=== PATIENT | female | born 1945 | race Caucasian/White ===

== ENCOUNTER 2016-12-27 09:11 | Outpatient (CLI) | payer MEDICARE, OTHER | END 2016-12-27 09:12 | disposition home or self-care (01) | DX: Z79.899 Other long term (current) drug therapy (principal); E55.9 Vitamin D deficiency, unspecified ==

== ENCOUNTER 2017-05-09 12:49 | Outpatient (CLI) | payer MEDICARE, OTHER ==
[2017-05-09 18:07] LABS: ALBUMIN/GLOBULIN RATIO 1.6 (1.0-2.2); CALCIUM 9.7 mg/dL (8.5-10.3); POTASSIUM 3.8 mmol/L (3.5-5.0); TOTAL PROTEIN 6.8 g/dL (6.7-8.2)
== END 2017-05-09 12:50 | disposition home or self-care (01) ==
LOC: LAB.F 12:49
PROVIDERS: ATTEND Physician Assistant Medical
DX: N28.9 Disorder of kidney and ureter, unspecified (principal)
CPT/HCPCS: 36415; 80053

== ENCOUNTER 2017-10-03 08:00 | Outpatient (CLI) | payer MEDICARE, OTHER ==
[2017-10-04 11:47] LABS: BASOPHILS # (AUTO) 0.2 10^3/uL (0.0-0.1); BASOPHILS % (AUTO) 2.1 %; EOSINOPHILS # (AUTO) 0.3 10^3/uL (0.0-0.7); EOSINOPHILS % (AUTO) 3.3 %; HGB - HEMOGLOBIN 12.8 g/dL (12.0-16.0); LYMPHOCYTES # (AUTO) 1.6 10^3/uL (1.5-3.5); LYMPHOCYTES % (AUTO) 19.4 %; MEAN CORPUSCULAR HEMOGLOBIN 32.8 pg (27.0-31.0); MEAN CORPUSCULAR HGB CONC 31.9 g/dL (32.0-36.0); MEAN CORPUSCULAR VOLUME 102.7 fL (81.0-99.0); MEAN PLATELET VOLUME 10.6 fL (7.9-10.8); MONOCYTES # (AUTO) 0.6 10^3/uL (0.0-1.0); MONOCYTES % (AUTO) 7.1 %; NEUTROPHILS # (AUTO) 5.5 10^3/uL (1.5-6.6); NEUTROPHILS % (AUTO) 68.1 %; PLT - PLATELET COUNT 243 10^3/uL (130-450); RED BLOOD COUNT 3.92 10^6/uL (4.20-5.40); RED CELL DISTRIBUTION WIDTH 14.2 % (12.0-15.0); WHITE BLOOD COUNT 8.1 x10^3/uL (4.8-10.8)
[2017-10-04 12:02] LABS: ALBUMIN 4.2 g/dL (3.2-5.5); ALBUMIN/GLOBULIN RATIO 1.6 (1.0-2.2); ALKALINE PHOSPHATASE 56 IU/L (42-121); ALT ALANINE AMINOTRANSFERASE 23 IU/L (10-60); AST ASPARTATE AMINOTRANSFERASE 26 IU/L (10-42); BILIRUBIN,TOTAL 0.7 mg/dL (0.2-1.0); BUN - BLOOD UREA NITROGEN 19 mg/dL (6-20); CALCIUM 9.3 mg/dL (8.5-10.3); CARBON DIOXIDE - CO2 27 mmol/L (21-32); CHLORIDE 104 mmol/L (101-111); CHOLESTEROL 180 mg/dL; CREATININE 0.9 mg/dL (0.4-1.0); GFR - MDRD 62 (>89); GLUCOSE 88 mg/dL (70-100); HDL CHOLESTEROL 60 mg/dL; LDL CHOLESTEROL,CALCULATED 81 mg/dL; LDL/HDL RATIO 1.4 (<4.4); SODIUM 139 mmol/L (135-145); TOTAL PROTEIN 6.8 g/dL (6.7-8.2); VLDL CHOLESTEROL 39 mg/dL
== END 2017-10-03 08:01 | disposition home or self-care (01) ==
LOC: LAB.F 08:00
PROVIDERS: ATTEND Physician Assistant Medical
DX: E78.5 Hyperlipidemia, unspecified (principal); G45.9 Transient cerebral ischemic attack, unspecified
CPT/HCPCS: 36415; 80053; 80061; 84443; 85025

== ENCOUNTER 2017-10-09 11:18 | Outpatient (CLI) | payer MEDICARE, OTHER | END 2017-10-09 11:19 | disposition home or self-care (01) | LOC: DI 11:18 | PROVIDERS: ATTEND Physician Assistant Medical | DX: I47.9 Paroxysmal tachycardia, unspecified (principal) | CPT/HCPCS: 93306 ==

== ENCOUNTER 2017-10-14 13:53 | Outpatient (CLI) | payer MEDICARE, OTHER ==
[2017-10-14] MEDS ORDERED: GADOBUTROL 7.5 MMOL/7.5 ML VIAL ONE (14:32)
[2017-10-14] MEDS ORDERED: GADOBUTROL 7.5 MMOL/7.5 ML VIAL IVP ONE (15:07)
--- NOTE | 2017-10-16 03:30 | MRI Report ---
EXAM: MR ANGIOGRAM NECK EXAM DATE: 10/14/2017 03:17 PM. CLINICAL HISTORY: TIA, dizziness, visual auras, difficulty with comprehension. COMPARISON: Head CT/CTA 10/05/2017. TECHNIQUE: Multiplanar, multisequence MRA sequences of the neck were performed. Other: None. Post-pro cessing: Multiplanar 3D MIP reconstructions. IV Contrast: Without and with. Evaluation of arterial s tenosis is based on a NASCET method of measurement. FINDINGS: There is mild tortuosity of the carotid arteries. There is moderate tortuosity of the dista l left vertebral artery. RIGHT Common Carotid: Patent. No dissection or significant stenosis. Internal Carotid: Patent. No dissection or significant stenosis. External Carotid: Patent. No dissection or significant stenosis. Vertebral: Patent. No dissection or significant stenosis. LEFT Common Carotid: Patent. No dissection or significant stenosis. Internal Carotid: Patent. No dissection or significant stenosis. External Carotid: Patent. No dissection or significant stenosis. Vertebral: Patent. No dissection or significant stenosis. Intracranial Circulation: No stenoses or aneurysms in the visualized portion of the intracranial vasc ulature. Other: The soft tissues, bones, and lung apices are unremarkable. IMPRESSION: No evidence of carotid or vertebral artery stenosis. [facility] Referring Provider Line: [phone] SITE ID: [id number]
--- NOTE | 2017-10-16 06:55 | MRI Report ---
EXAM MRA BRAIN EXAM DATE: 10/14/2017 03:17 PM. CLINICAL HISTORY: Dizziness, visual auras, confusion COMPARISON: Head and neck CTA 10/05/2017. TECHNIQUE: Multiplanar, multisequence MRA sequences of the brain were performed. Other: None. Post-pr ocessing: Multiplanar 3D MIP reconstructions. IV Contrast: None. FINDINGS: RIGHT Internal Carotid (ICA): No aneurysm, stenosis or anomaly. Middle Cerebral (MCA): No aneurysm, stenosis or anomaly. Anterior Cerebral (MARLENY): No aneurysm, stenosis or anomaly. Posterior Cerebral (ENTERPRISE MOBILITY ARCHITECT): No aneurysm, stenosis or anomaly. Posterior Communicating (P-COM): No aneurysm, stenosis or anomaly. Vertebral: No aneurysm, stenosis or anomaly in the visualized upper vertebral artery. LEFT Internal Carotid (ICA): No aneurysm, stenosis or anomaly. Middle Cerebral (MCA): No aneurysm, stenosis or anomaly. Anterior Cerebral (MARLENY): No aneurysm, stenosis or anomaly. Posterior Cerebral (ENTERPRISE MOBILITY ARCHITECT): No aneurysm, stenosis or anomaly. Posterior Communicating (P-COM): No aneurysm, stenosis or anomaly. Vertebral: No aneurysm, stenosis or anomaly in the visualized upper vertebral artery. MIDLINE Anterior Communicating (A-COM): No aneurysm, stenosis or anomaly. Basilar Artery:No aneurysm, stenosis or anomaly. Other: None. IMPRESSION: 1. Normal brain MRA. No stenoses or aneurysms. [facility] Referring Provider Line: [phone] SITE ID: [id number]
== END 2017-10-14 13:54 | disposition home or self-care (01) ==
LOC: DI 13:53
PROVIDERS: ATTEND Physician Assistant Medical
DX: G45.9 Transient cerebral ischemic attack, unspecified (principal)
CPT/HCPCS: 70544; 70549; A9585

== ENCOUNTER 2019-01-02 07:57 | Outpatient (CLI) | payer MEDICARE, OTHER ==
[2019-01-02 10:36] LABS: BASOPHILS # (AUTO) 0.1 10^3/uL (0.0-0.1); BASOPHILS % (AUTO) 1.2 %; EOSINOPHILS # (AUTO) 0.1 10^3/uL (0.0-0.7); EOSINOPHILS % (AUTO) 2.4 %; HGB - HEMOGLOBIN 13.7 g/dL (12.0-16.0); LYMPHOCYTES # (AUTO) 1.1 10^3/uL (1.5-3.5); LYMPHOCYTES % (AUTO) 19.7 %; MEAN CORPUSCULAR HEMOGLOBIN 32.7 pg (27.0-31.0); MEAN CORPUSCULAR HGB CONC 33.1 g/dL (32.0-36.0); MEAN CORPUSCULAR VOLUME 98.9 fL (81.0-99.0); MEAN PLATELET VOLUME 9.7 fL (7.9-10.8); MONOCYTES # (AUTO) 0.5 10^3/uL (0.0-1.0); MONOCYTES % (AUTO) 8.3 %; NEUTROPHILS # (AUTO) 3.8 10^3/uL (1.5-6.6); NEUTROPHILS % (AUTO) 68.4 %; PLT - PLATELET COUNT 289 10^3/uL (130-450); RED BLOOD COUNT 4.17 10^6/uL (4.20-5.40); RED CELL DISTRIBUTION WIDTH 12.8 % (12.0-15.0); WHITE BLOOD COUNT 5.6 x10^3/uL (4.8-10.8)
[2019-01-02 10:52] LABS: ALBUMIN 4.1 g/dL (3.2-5.5); ALBUMIN/GLOBULIN RATIO 1.5 (1.0-2.2); ALKALINE PHOSPHATASE 51 IU/L (42-121); ALT ALANINE AMINOTRANSFERASE 44 IU/L (10-60); AST ASPARTATE AMINOTRANSFERASE 36 IU/L (10-42); BILIRUBIN,TOTAL 1.3 mg/dL (0.2-1.0); BUN - BLOOD UREA NITROGEN 18 mg/dL (6-20); CALCIUM 9.5 mg/dL (8.5-10.3); CARBON DIOXIDE - CO2 30 mmol/L (21-32); CHLORIDE 101 mmol/L (101-111); CHOL/HDL RATIO 3.3 (<4.4); CHOLESTEROL 185 mg/dL; CREATININE 0.9 mg/dL (0.4-1.0); GFR - MDRD 62 (>89); GLUCOSE 96 mg/dL (70-100); HDL CHOLESTEROL 56 mg/dL; LDL CHOLESTEROL,CALCULATED 98 mg/dL; LDL/HDL RATIO 1.8 (<4.4); SODIUM 137 mmol/L (135-145); TOTAL PROTEIN 6.8 g/dL (6.7-8.2); VLDL CHOLESTEROL 31 mg/dL
== END 2019-01-02 07:58 | disposition home or self-care (01) ==
LOC: LAB.F 07:57
PROVIDERS: ATTEND Physician Assistant Medical
DX: E78.5 Hyperlipidemia, unspecified (principal)
CPT/HCPCS: 36415; 80053; 80061; 83721; 85025

== ENCOUNTER 2019-02-12 16:23 | Outpatient (CLI) | payer MEDICARE, OTHER ==
--- NOTE | 2019-02-13 09:11 | DEXA Report ---
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 Regions measured are the AP Spine, femoral neck, and if needed forearm. COMPARISON: 08/22/2016 In accordance with the International Society for Clinical Densitometry (ISCD) guidelines, data from previous exams may be reanalyzed using current recommendations and techniques. This is done to allow a more accurate basis for comparison with the current study. FINDINGS: The data for the lumbar spine is as follows: BMD (g/cm/cm) T-SCORE Z-SCORE REGION L1 0.928 -1.7 0.5 L2 1.093 -0.9 1.2 L3 1.127 -0.6 1.5 L4 1.056 -1.2 0.9 TOTAL 1.051 -1.1 1.1 NOTE: All evaluable vertebrae are used for classification The data for the hip is as follows: BMD (g/cm/cm) T-SCORE Z-SCORE REGION Neck 0.699 -2.4 -0.4 TOTAL 0.745 -2.1 -0.2 NOTE: The femoral neck or total proximal femur, whichever is lowest, is used for classification. DXA RESULTS SUMMARY: Spine SCAN DATE AGE BMD CHANGE VS CHANGE VS PREVIOUS PREVIOUS % [birth year][age]12/2019 [age] 1.051 -0.012 -1.1 08/22/2016 [age] 1.063 * Denotes significant change at the 95% confidence level. Denotes dissimilar scan types or analysis methods. DXA RESULTS SUMMARY: Hip SCAN DATE AGE BMD CHANGE VS CHANGE VS PREVIOUS PREVIOUS % 02[birth year]12/2019 [age] 0.745 -0.002 -0.3 08/22/2016 [age] 0.747 * Denotes significant change at the 95% confidence level. Denotes dissimilar scan types or analysis methods. IMPRESSION: THE WHO CLASSIFICATION BASED ON THE INTERNATIONAL REFERENCE STANDARD IS OSTEOPENIA (REFERENCE LEFT FEMORAL NECK). THE FRACTURE RISK IS INCREASED. RECOMMENDATION: Patients with diagnosis of osteoporosis or osteopenia should have regular bone mineral density assessment. For those eligible for Medicare, routine testing is allowed once every 2 years. Testing frequency can be increased for patients who have rapidly progressing disease or for those who are receiving medical therapy to restore bone mass. COMMENT: World Health Organization (WHO) definitions for osteoporosis and osteopenia: NORMAL BMD: T-score at -1.0 or higher, fracture risk is low OSTEOPENIA BMD: T-score between -1.0 and -2.5, fracture risk is increased. OSTEOPOROSIS BMD: T-score at -2.5 or lower, fracture risk is high. National Osteoporosis Foundation recommends: 1. Obtain adequate dietary calcium (at least 1200 mg per day) and vitamin D (400-800 international units per day). 2. Participate, as appropriate, in regular weightbearing and muscle-strengthening exercise. 3. Avoid tobacco use and reduce alcohol and caffeine intake. 4. For more detailed information see the website at www.NOF.org.
== END 2019-02-12 16:24 | disposition home or self-care (01) ==
LOC: DI 16:23
PROVIDERS: ATTEND Physician Assistant Medical
DX: Z13.820 Encounter for screening for osteoporosis (principal); M85.89 Other specified disorders of bone density and structure, multiple sites; Z78.0 Asymptomatic menopausal state
CPT/HCPCS: 77080

== ENCOUNTER 2019-02-12 16:26 | Outpatient (CLI) | payer MEDICARE, OTHER ==
--- NOTE | 2019-02-13 10:59 | Mammography Report ---
Reason: SCREENING MAMMOGRAM [facility] Procedure Date: 02/12/2019 Accession Number: [id number] / [id number] Procedure: GEM - Screening Mammo w/Gael CPT Code: FULL RESULT: EXAM: Screening Mammo w/Gael DATE: 02/12/2019 5:06 PM CLINICAL HISTORY: Routine screening TECHNIQUE: (B) - Bilateral CC and MLO views were obtained. COMPARISON: 07/22/2016, 01/14/2015, 12/05/2013, and 12/13/2012 PARENCHYMAL PATTERN: (D) - The breasts demonstrate heterogeneously dense fibroglandular parenchyma bilaterally. FINDINGS: No significant interval change. There are no suspicious masses, calcifications, or areas of distortion. IMPRESSION: Negative examination. BI-RADS category 1. RECOMMENDATION: (ANNUAL) - Recommend routine annual screening mammography. BI-RADS CATEGORY: (1) - Negative. STANDARD QUALIFYING STATEMENTS: 1. This examination was not reviewed with the aid of Computer-Aided Detection (CAD). 2. A negative or benign imaging report should not preclude biopsy if clinically suspicious findings are present. 3. Dense breasts may obscure an underlying neoplasm. 4. This examination was reviewed with the aid of 3D breast imaging (tomosynthesis).
== END 2019-02-12 16:27 | disposition home or self-care (01) ==
LOC: DI 16:26
PROVIDERS: ATTEND Physician Assistant Medical
DX: Z12.31 Encounter for screening mammogram for malignant neoplasm of breast (principal)
CPT/HCPCS: 77063; 77067

== ENCOUNTER 2020-03-11 13:16 | Outpatient (CLI) | payer MEDICARE | END 2020-03-11 13:17 | disposition critical access hospital (66) | LOC: EMS 13:16 | PROVIDERS: ATTEND Surgery | DX: R07.9 Chest pain, unspecified (principal) | CPT/HCPCS: A0425; A0429 ==

== ENCOUNTER 2020-03-11 13:42 | Observation (INO) | payer MEDICARE, OTHER ==
--- NOTE | 2020-03-11 13:49 | ED Physician Documentation ---
PD HPI CHEST PAIN - Stated complaint Stated Complaint: CP - History obtained from History obtained from: Patient - History of Present Illness Timing - onset: Enter time, How many minutes ago (60) Timing - onset during: Light activity Timing - duration: Minutes Timing - details: Gradual onset Pain level max: 8 Pain level now: 0 Quality: Pressure, Tightness Location: Left chest, Left neck Radiation: Back Improved by: Nitro Associated symptoms: No: Shortness of air, Diaphoresis, Nausea, Vomiting - Additional information Additional information: 75-year-old female presents to the emergency department with chief complaint of chest pain. Approximately 60 minutes ago patient was out with her shopping. She began to develop low back pain that then radiated up into her chest left arm and jaw. At maximal intensity the pain was rated an 8. Her gave her 1 of his nitroglycerin tablets SL. Shortly thereafter she had almost full resolution of the chest pain.EMS was summoned and she was brought into the emergency department in route patient maintained a sinus rhythm and was given 324 mg of aspirin. Patient denies any history of coronary artery disease or previous AR. She denies a history of high blood pressure or diabetes. She is a non-smoker. The only medication she takes is Restasis for dry eyes. Her brother at 50 due to myocardial infarction. Review of Systems Constitutional: denies: Fever, Chills Nose: denies: Rhinorrhea / runny nose Throat: denies: Dental pain / toothache Cardiac: reports: Chest pain / pressure. denies: Palpitations, Pedal edema, Calf pain Respiratory: denies: Dyspnea, Cough, Hemoptysis, Wheezing GI: denies: Abdominal Pain, Abdominal Swelling : denies: Dysuria Skin: denies: Rash Musculoskeletal: denies: Neck pain, Back pain, Extremity pain Neurologic: denies: Generalized weakness Psychiatric: denies: Depressed PD PAST MEDICAL HISTORY - Past Medical History Cardiovascular: None Respiratory: None Endocrine/Autoimmune: None GI: None : None HEENT: None Psych: None Musculoskeletal: Osteoarthritis, Osteoporosis, Other Derm: Other - Past Surgical History General: Colonoscopy - Present Medications Home Medications: Ambulatory Orders Medication Instructions Recorded Confirmed Calcium Carb/Mag/Vitamin D3 [Coral 1,200 12/27/13 12/27/13 Calcium 1,500 mg Cap] Gluc/MSM/Colgn2/Hyal/Antiarth3 12/27/13 12/27/13 [Arthri-Flex Tablet] Multivitamin [Multi-Day Vitamins] 1 each PO 12/27/13 12/27/13 [place]-3/Dha/Epa/Fish Oil [Fish Oil 1 each PO 12/27/13 12/27/13 1,000 mg Softgel] Piroxicam 20 mg PO 12/27/13 12/27/13 - Allergies Allergies/Adverse Reactions: Allergies Allergy/AdvReac Type Severity Reaction Status Date / Time No Known Drug Allergies Allergy Verified 03/11/20 13:45 PD ED PE NORMAL - General General: Alert and oriented X 3, No acute distress, Well developed/nourished - HEENT HEENT: PERRL, EOMI - Neck Neck: No adenopathy - Cardiac Cardiac: RRR, No murmur - Respiratory Respiratory: No respiratory distress, Clear bilaterally - Abdomen Abdomen: Normal bowel sounds, Non tender - Female Female : No: Deferred - Back Back: No: No CVA TTP, No spinal TTP - Derm Derm: No: Normal color, Warm and dry, No rash - Extremities Extremities: No: No deformity - Neuro Neuro: Alert and oriented X 3, sustainability coordinator 2-12 intact, No motor deficit, No sensory deficit Eye Opening: To Pain Motor: Obeys Commands Verbal: Oriented GCS Score: 13 - Psych Psych: Normal mood Results - Vitals Vitals: Vital Signs - 24 hr 03/11/20 03/11/20 03/11/20 13:48 13:52 15:47 Temperature 37.1 C Heart Rate 57 L 60 65 Respiratory 16 16 22 Rate Blood Pressure 136/88 H 118/82 H 118/82 H O2 Saturation 100 99 100 Oxygen O2 Source Room air - EKG (time done) 1348 Rate: Rate (enter#) (59) Rhythm: NSR [place]: Normal Intervals: Normal NM QRS: Normal Ischemia: Normal ST segments Compare to prior EKG: Old EKG unavailable Computer interpretation: Agree with computer - Labs Labs: Laboratory Tests 03/11/20 03/11/20 03/11/20 14:02 14:02 14:24 WBC 9.3 RBC 3.76 L Hgb 12.4 Hct 36.2 L MCV 96.3 MCH 33.0 H MCHC 34.3 RDW 12.1 Plt Count 280 MPV 10.7 Neut # (Auto) 6.7 H Lymph # (Auto) 1.6 [place] # (Auto) 0.7 Eos # (Auto) 0.2 Baso # (Auto) 0.1 Absolute Nucleated RBC 0.00 Nucleated RBC % 0.0 Sodium 138 Potassium 4.3 Chloride 101 Carbon Dioxide 28 Anion Gap 9.0 BUN 29 H Creatinine 1.0 Estimated GFR (MDRD) 54 L Glucose 106 H Calcium 9.3 Total Bilirubin 1.1 H AST 28 ALT 20 Alkaline Phosphatase 69 Troponin I High Sens 4.5 Total Protein 6.9 Albumin 4.1 Globulin 2.8 Albumin/Globulin Ratio 1.5 Lipase 31 - Rads (name of study) CXR Radiology: Final report received (No acute cardiopulmonary process) CT Carina Chest Radiology: Final report received (No acute process no evidence of aortic dissection. Coronary artery disease is present. Right lower pulmonary nodule follow-up is recommended as below.) CT angio pelvis Radiology: Final report received (The aorta demonstrates no areas of hemodynamically significant stenosis. 66% compression deformity at L1 most consistent with acute subacute fracture. In addition a poorly visualized lucency is noted along the lateral aspect of L1 vertebral body pathologic fracture cannot be definitively excluded) PD MEDICAL DECISION MAKING - ED course Complexity details: reviewed results, re-evaluated patient, d/w patient, d/w family ED course: 75-year-old female presented to the emergency department with chief complaint of chest pain. Occurred at rest. She took 1 of her 's nitroglycerin tablets which fully relieved the chest pain. - Work-up here in the ED has included routine labs and high-sensitivity troponin which is negative. Her EKG is unrevealing and nonischemic. Chest x-ray shows no acute cardiopulmonary process. - CT angios of chest and pelvis was completed to rule out aortic dissection as pain began in the back. No findings consistent with aortic dissection. However there is a noted L1 compression fracture. Cannot rule out pathologic fracture - Patient does have limited risk factors for AR. No history of hypertension diabetes or hyperlipidemia. However at 75 this is seemingly her only risk factor. Patient will be brought into the hospital for echo and stress test Departure - Departure Disposition: ED Place in Observation
--- NOTE | 2020-03-11 14:23 | XRAY Report ---
PROCEDURE: Chest 1 View X-Ray INDICATIONS: Chest Pain TECHNIQUE: One view of the chest was acquired. COMPARISON: None FINDINGS: Surgical changes and devices: None. Lungs and pleura: No pleural effusions or pneumothorax. Lungs are clear. Mediastinum: Mediastinal contours appear normal. Heart size is normal. Bones and chest wall: No suspicious bony lesions. Overlying soft tissues appear unremarkable. IMPRESSION: No acute process. Reviewed by: Jose Rafael Nagel MD on 03/11/2020 2:22 PM PDT Approved by: Jose Rafael Nagel MD on 03/11/2020 2:22 PM PDT Station ID: [id number]
[2020-03-11 14:24] LABS: ALBUMIN 4.1 g/dL (3.2-5.5); ALBUMIN/GLOBULIN RATIO 1.5 (1.0-2.2); BILIRUBIN,TOTAL 1.1 mg/dL (0.2-1.0); CALCIUM 9.3 mg/dL (8.5-10.3); TOTAL PROTEIN 6.9 g/dL (6.7-8.2)
[2020-03-11 14:28] LABS: BASOPHILS # (AUTO) 0.1 10^3/uL (0.0-0.1); BASOPHILS % (AUTO) 0.8 %; EOSINOPHILS # (AUTO) 0.2 10^3/uL (0.0-0.7); EOSINOPHILS % (AUTO) 2.4 %; HGB - HEMOGLOBIN 12.4 g/dL (12.0-16.0); LYMPHOCYTES # (AUTO) 1.6 10^3/uL (1.5-3.5); MEAN CORPUSCULAR HGB CONC 34.3 g/dL (32.0-36.0); MEAN CORPUSCULAR VOLUME 96.3 fL (81.0-99.0); MEAN PLATELET VOLUME 10.7 fL (7.9-10.8); MONOCYTES # (AUTO) 0.7 10^3/uL (0.0-1.0); MONOCYTES % (AUTO) 7.1 %; NEUTROPHILS # (AUTO) 6.7 10^3/uL (1.5-6.6); NEUTROPHILS % (AUTO) 72.3 %; PLT - PLATELET COUNT 280 10^3/uL (130-450); RED BLOOD COUNT 3.76 10^6/uL (4.20-5.40); RED CELL DISTRIBUTION WIDTH 12.1 % (12.0-15.0); WHITE BLOOD COUNT 9.3 x10^3/uL (4.8-10.8)
[2020-03-11] MEDS ORDERED: IOVERSOL 320 100 ML VIAL IVP ONE ×2 (15:06→15:33)
--- NOTE | 2020-03-11 15:53 | CT Report ---
PROCEDURE: ANGIO CHEST W/WO INDICATIONS: lbp radiating to chest. r/o aod CONTRAST: IV CONTRAST: Optiray 320 ml: 100 PO CONTRAST: *NO PO CONTRAST TECHNIQUE: After the administration of intravenous contrast, 2 mm thick sections acquired from the pulmonary api elaine to the posterior costophrenic angles. 3-dimensional maximum intensity projection (MIP) coronal a nd sagittal reformats were then acquired through the thorax. For radiation dose reduction, the follow ing was used: automated exposure control, adjustment of mA and/or kV according to patient size. COMPARISON: None FINDINGS: Image quality: Excellent. Pulmonary arteries: Pulmonary arteries are normal in size, and demonstrate no intraluminal filling d efects to suggest central pulmonary embolism. Lungs and pleura: No evidence of pneumonia, nor edema. 6 mm subpleural nodule within the right lower lobe posteriorly (series 7 image 215). No pleural effusions or pneumothorax. Central and peripheral airways are patent. Mediastinum: Heart size is normal, without pericardial effusion. Calcification of the coronary vasc ulature. No mediastinal or hilar adenopathy. Thoracic aorta is normal in caliber and enhancement. N o evidence of aortic dissection. Esophagus is normal in caliber, without hiatal hernia. Bones and chest wall: No suspicious bony lesions. Ribs and thoracic spine appear intact throughout. Thyroid gland is within normal limits. 6 mm sclerotic focus within the right anterolateral fifth ri b. No axillary or supraclavicular adenopathy. Abdomen: Visualized upper abdominal solid organs appear normal in the early arterial phase of enhanc ement. IMPRESSION: 1. No acute process. No evidence of aortic dissection. 2. Coronary artery disease. 3. Right lower lobe pulmonary nodule; follow-up is recommended as below. Solid nodules Solitary nodule size: <6 mm * low risk patients: no follow-up needed * high risk patients: optional CT at 12 months Solitary nodule size: 6-8 mm * low risk patients: follow-up at 6-12 months, then consider further follow-up at 18-24 months * high risk patients: initial follow-up CT at 6-12 months and then at 18-24 months if no change Reviewed by: Jose Rafael Nagel MD on 03/11/2020 3:51 PM PDT Approved by: Jose Rafael Nagel MD on 03/11/2020 3:51 PM PDT Station ID: [id number]
--- NOTE | 2020-03-11 15:58 | CT Report ---
PROCEDURE: ANGIO ABDOMEN/PELVIS W INDICATIONS: LBP RADIATING TO CHEST CONTRAST: IV CONTRAST: Optiray 320 ml: 100 PO CONTRAST: *NO PO CONTRAST TECHNIQUE: After the administration of intravenous contrast, 2 and 5 mm sections acquired from the diaphragm to the iliac crests. 3-dimensional maximum intensity projection (MIP) coronal and sagittal reformats, a nd/or 3-dimensional volume rendering reformatting was then performed. For radiation dose reduction, the following was used: automated exposure control, adjustment of mA and/or kV according to patient size. COMPARISON: CT angiogram chest 03/11/2020 FINDINGS: Image quality: Excellent. Extravascular tissues: Lung bases are clear. Heart size is normal. Liver and spleen are normal in size. 5 mm right hepatic dome focus of low-attenuation is present. Gallbladder is unremarkable Bili shiv system is non dilated. Pancreas enhances normally. No adrenal nodules. Kidneys are normal in s ize and enhancement, without hydronephrosis. Non-opacified bowel loops demonstrate normal wall thick ness and caliber. No free fluid or air. No retroperitoneal or mesenteric adenopathy. No ventral he rnias. No suspicious bony abnormalities. There is a superior endplate deformity with approximately 6 6% compression deformity at L1. There is poorly defined area of lateral lucency within the vertebral body. Abdominal aorta: No areas of hemodynamically significant stenosis, vascular occlusion or aneurysmal dilation is identified. Scattered mild areas of atherosclerotic calcification are noted. There is a s hort segment within the distal aorta demonstrating a small area of calcified mural thrombus. Mesenteric arteries: No areas of hemodynamically significant stenosis, vascular occlusion or aneurys mal dilation is identified. Renal arteries: No areas of hemodynamically significant stenosis, vascular occlusion or aneurysmal d ilation is identified. IMPRESSION: 1. The aorta demonstrates no areas of hemodynamically significant stenosis, vascular occlusion or ane urysmal dilation. 2. Prominent stool consistent with constipation. No obstruction. 3. 66% compression deformity at L1 most consistent with acute/subacute fracture. In addition, a poorl y visualized lucency is noted along the lateral aspect of the L1 vertebral body. Pathologic fracture cannot be definitively excluded. MRI with and without contrast is recommended for further evaluation. Reviewed by: Desire Arzate MD on 03/11/2020 3:57 PM PDT Approved by: Desire Arzate MD on 03/11/2020 3:57 PM PDT Station ID: [id number]
[2020-03-11] MEDS ORDERED: SODIUM CHLORIDE FLUSH 0.9% 10 ML SYRINGE IVP PRN (16:58)
[2020-03-11] MEDS ORDERED: ACETAMINOPHEN 325 MG TABLET PO PRN (16:58)
[2020-03-11] MEDS ORDERED: ONDANSETRON 4 MG/2 ML VIAL IVP PRN (16:58)
[2020-03-11] MEDS ORDERED: NITROGLYCERIN SL 0.4 MG TABLET SL PRN (17:07)
--- NOTE | 2020-03-11 18:00 | HISTORY & PHYSICAL EXAMINATION ---
DATE OF SERVICE: 03/11/2020 Physician: Velia Brown MD HISTORY OF PRESENT ILLNESS: This is a 75-year-old white female with a family history of coronary artery disease with a brother dying in his 50s of AL. She otherwise also has osteoarthritis, osteoporosis and takes supplements. She was sitting in the car while she and her were out shopping and she began to develop left-mid low back pain that started to radiate forward "striaght through" her to the left-anterior chest and then felt pain in the and jaw. gave her one of his sublingual nitroglycerin, which gave her partial relief of the pain. They called an ambulance. The ambulance gave her a sl NTG as well, and 2 baby aspirin and pain subsided, it lasted about 390 min. She was brought to the emergency room. Old records here showed that she had an Echo done years ago to evaluate "history of coronary artery disease and TIA" and this showed normal LV ejection fraction. She describes other tests at other institutions to evaluate for any heart disease and they were negative. Patient denies an established history of CAD or previous AL. She has never had symptoms like this before. She denies dyspnea, palpitations, syncope, leg edema. She gets "leg fatigue" with walking up stairs, but no pain. 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 PAST MEDICAL HISTORY 1. Osteoarthritis. 2. Osteoporosis. MEDICATIONS 1. Calcium with magnesium. 2. Vitamin D3 supplement 3. Glucosamine chondroitin. 4. Fish oil. 5. Multivitamin. 6. Meloxicam. ALLERGIES: NO KNOWN ALLERGIES. FAMILY HISTORY: Positive family history for early heart disease in her brother who in his 50s. No other inherited diseases. SOCIAL HISTORY: She is a nonsmoker, who quit smoking 30 years ago. No alcohol abuse history or drug abuse history. She lives with her . She retired about 20 years ago. REVIEW OF SYSTEMS: A comprehensive review of systems was performed and the pertinent positives are listed, the rest are negative. PHYSICAL EXAMINATION GENERAL: White female who appears younger than her age and is currently in no distress. VITAL SIGNS: Blood pressure 120/82, heart rate 60-65 in sinus rhythm. Oxygen saturation is 98% on room air. HEENT: Unremarkable. NECK: No JVD or carotid bruits. CHEST: Clear. HEART: Normal heart sounds. No murmur. ABDOMEN: Soft, nontender. Normal bowel sounds. EXTREMITIES: No clubbing, cyanosis or edema. NEUROLOGIC: Grossly intact. LABORATORY DATA: Normal electrolytes, BUN 29, creatinine 1.0, bilirubin 1.1. Normal liver tests. First troponin high sensitivity is 4.5. CBC shows normal white count and platelet count and hemoglobin of 12.4 with a normal MCV of 96. No INR was done. No urinalysis was done. EKG: Normal sinus rhythm, early R/S transition. There is no old EKG available for comparison. CHEST X-RAY: No acute pulmonary disease. CTA of the chest, abdomen and pelvis were done to rule out aortic dissection because of the location of pain and where it started. The imaging showed no evidence of aortic dissection. She has coronary artery disease with atherosclerosis seen. There is a nodule within the right lower lobe posteriorly. In the abdomen, there were findings of atherosclerosis of the descending aorta with a calcified clot that is mural. She has constipation and there is a compression deformity of L1 vertebrae, which could be acute or subacute and possibly a poorly visualized lucency along the lateral aspect of the L1 vertebral body. A pathologic fracture cannot be ruled out. IMPRESSION 1. Chest pain. 2. Abnormal EKG. 3. Low back pain. 4. L1 compression fracture. 5. Abnormal CT of the heart, showing coronary artery disease/atherosclerosis. 6. Pulmonary nodule in the right. 7. Prerenal azotemia. PLAN: Place patient in Observation status on telemetry. Cycle troponins. Obtain an Echo. Obtain a stress test if the troponins are normal. We will plan for a nonwalking stress test because of her low back pain and findings of the L1 compression fracture. She will need workup for the compression fracture and a possibility of pathologic fracture and lucency seen. Check lipids and treat per guidelines. Continue with her supplements. DEEP VENOUS THROMBOSIS PROPHYLAXIS: SCDS. CODE STATUS: FULL CODE. ATTESTATION: Patient is expected to be discharged or transferred to another facility within 96 hours: Yes. cc: PRISCILA Kaiser TD: 03/11/2020 17:46 PHONG
--- NOTE | 2020-03-11 18:39 | PHARMACY PROGRESS NOTE ---
- Best Possible Medication History Admit Date and Time: 03/11/20 1633 Processed by: Pharmacy Medication History completed: Yes Patient Interview: Completed Secondary Source(s): Pharmacy records, Insurance records As the person ultimately responsible for medication therapy, providers are able to order a medication from an existing home medication list in [facility] via the "Reconcile Routine" prior to Confirmation of that medication by direct support worker. Such practice is discouraged except when the physician, in their clinical judgment, deems that a medical need exists for a medication without regard to previous use.
[2020-03-11] MEDS: FAMOTIDINE 20 MG TABLET PO SCH (21:00)
[2020-03-12] MEDS: SODIUM CHLORIDE FLUSH 0.9% 10 ML SYRINGE IVP SCH ×2 (00:23→09:28)
[2020-03-12 06:10] LABS: BUN - BLOOD UREA NITROGEN 22 mg/dL (6-20); CARBON DIOXIDE - CO2 26 mmol/L (21-32); CHLORIDE 105 mmol/L (101-111); CHOL/HDL RATIO 3.3 (<4.4); CHOLESTEROL 164 mg/dL; GLUCOSE 103 mg/dL (70-100); HDL CHOLESTEROL 50 mg/dL; LDL CHOLESTEROL,CALCULATED 86 mg/dL; LDL/HDL RATIO 1.7 (<4.4); SODIUM 139 mmol/L (135-145); VLDL CHOLESTEROL 28 mg/dL
--- NOTE | 2020-03-12 08:15 | Discharge Plan ---
Discharge Plan Problem Reviewed?: Yes Disposition: Home, Self Care Condition: Stable Prescriptions: Aspirin [Aspirin EC] 81 mg PO DAILY #30 tablet. Diet: Regular Activity Restrictions: Activity as Tolerated Shower Restrictions: No Driving Restrictions: No Health Concerns: You were in Observation status in the hospital for evaluating your back pain and chest pain plus jaw pain. The blood test showed you had no heart attack, and your fasting cholesterol results are good. The Echocardiogram showed normal heart size and function. The stress test showed no areas of significant coronary blockages (you passed your stress test). CT imaging of your chest and abdomen showed that you have a pulmonary nodule which needs follow-up in the future, and compression of L1 vertebra which also needs further evaluation. You are being sent home with recommendation to take aa baby aspirin daily, to prevent a heart attack. You may resume all medications that you took before hospitalization. Please see your PCP in the next 1 week for further evaluation of the pulmonary nodule and L1 compression fracture. Plan of Treatment: As above. Care Goals: Improvement in symptoms and stabilization are the goals. Assessment: Patient understands and is agreeable with the plan. Additional Instructions or Follow Up instructions: You have new or worsening symptoms, call your PCP for advice or come to the ER. No Smoking: If you smoke, Please STOP! Call for help. Follow-up with: MIKAELA ROCKWELL ARNP [Primary Care Provider] -
[2020-03-12] MEDS ORDERED: ASPIRIN EC 81 MG TABLET PO SCH (09:00)
[2020-03-12] MEDS ORDERED: CYCLOSPORINE EACHEYE SCH (09:00)
[2020-03-12] MEDS ORDERED: MELOXICAM 7.5 MG TABLET PO SCH (09:00)
[2020-03-12] MEDS: FAMOTIDINE 20 MG TABLET PO SCH (09:20)
[2020-03-12] MEDS ORDERED: REGADENOSON 0.4 MG/5 ML SYRINGE IVP ONE ×2 (10:49→12:34)
[2020-03-12] MEDS ORDERED: AMINOPHYLLINE 250 MG/10 ML VIAL ONE (10:50)
--- NOTE | 2020-03-12 12:32 | DISCHARGE SUMMARY ---
Discharge Summary Admit Date: 03/11/20 Discharge Date: 03/12/20 Discharging Provider: Dr Velia Brown Code Status: Attempt Resuscitation Condition at Discharge: Stable Discharge Disposition: 01 Home, Self Care - HPI History of Present Illness: This is a 75-year-old white female with a history of chronic low back pain on Mobic treatment, remote history of basal cell carcinoma of the left upper lip and uses Restasis eyedrops, otherwise has anegative PMH. She developed sudden onset of pain in the left mid-back (left flank area), radiating straight through to her anterior left chest, below the left breast, which was associated with jaw pain, while sitting. She took 1 of her 's sublingual nitroglycerin which helped somewhat and an ambulance was called. In the ambulance she got another sublingual nitroglycerin and 4 baby aspirin and the pain resolved. It lasted about 30 minutes. She has never had this symptom before. She had been doing more gardening than usual recently and dragging heavy bags of mulch and topsoil, she reported. In the ER she was found to have stable vital signs, first hs- troponin was normal at 4.5 and EKG showed sinus rhythm with early R/S transition. Chest and abdomen CTA imaging, ordered to rule out aortic dissection, showed no pulmonary embolism, no aortic dissection, but seen was: coronary calcification, aortic mural atherosclerosis, a right pulmonary nodule and compression fracture of L1 with a lytic lesion. She is being placed in Observation status to evaluate chest pain, with troponins and a stress test. She will need future evaluation of the pulmonary nodule and new L1 vertebral compression fracture. I spoke to about her medical management wishes, and she wants to be a full code. - HOSPITAL COURSE Hospital Course: 1) Chest pain There were no further episodes of chest pain or jaw pain while here. Her troponins were normal x3. She had a resting Echo done that showed normal LV and RV sizes and contractility and no significant valvular disease. PA pressure was normal at 31 mmHg. She underwent a pharmaceutical stress test using Lexiscan, along with nuclear myocardial perfusion imaging. This showed no areas of reversable ischemia. Her fasting lipid panel was excellent. She was advised to take a baby aspirin daily for prevention of heart attack or stroke. 2) Abnormal EKG Her resting EKG showed early R/S transition, suggesting pulmonary disease. She did not have pulmonary hypertension on Echo and denies other chronic lung conditions but she was a former smoker, who quit 30 years ago. 3) Low back pain, chronic Patient states she goes to a pain clinic where prior imaging of the spine has been done. She does get low back pain with activities such as gardening. She was kept on her Mobic medication while here. 4) Vertebral compression fracture of L1, possibly pathologic, with a lytic lesion seen She does not remember any sudden trauma recently. The current new complaint of mid-back pain, radiating through to her anterior-left chest, could possibly have been related to the location of this L1 vertebral fracture. Because there is concern for it being a pathologic fracture with a lytic lesion, she needs further evaluation and follow-up soon. 5) Right pulmonary nodule This was also an incidental finding on CT imaging of the chest. Further e valuation and management was advised. 6) Hx of basal cell carcinoma, of lip As per history. - ALLERGIES Allergies/Adverse Reactions: Allergies Allergy/AdvReac Type Severity Reaction Status Date / Time No Known Drug Allergies Allergy Verified 03/11/20 13:45 - MEDICATIONS Home Medications: Ambulatory Orders Medication Instructions Recorded Confirmed Multivitamin [Multi-Day Vitamins] 1 each PO DAILY 12/27/13 03/11/20 [place]-3/Dha/Epa/Fish Oil [Fish Oil 1 each PO DAILY 12/27/13 03/11/20 1,000 mg Softgel] Cyclosporine [Restasis] 1 drops EACHEYE BID 03/11/20 03/11/20 Melatonin/Pyridoxine [Melatonin 5 10 mg PO QPM 03/11/20 03/11/20 mg Tablet] Meloxicam [Mobic] 15 mg PO DAILY 03/11/20 03/11/20 Aspirin [Aspirin EC] 81 mg PO DAILY #30 tablet. 03/12/20 - PHYSICAL EXAM AT DISCHARGE General Appearance: positive: No acute distress, Alert Eyes Bilateral: positive: Normal inspection, EOMI ENT: positive: No signs of dehydration, Other (Left upper lip is S/P reconstruction) Neck: positive: Nml inspection, No JVD, Other (No carotid bruits) Respiratory: positive: No respiratory distress, Breath sounds nml Cardiovascular: positive: Regular rate & rhythm, No murmur Abdomen: positive: Non-tender, No distention Skin: positive: Color nml Extremities: positive: Non-tender, No pedal edema Neurologic/Psychiatric: positive: Oriented x3, Other (Non-focal) - LABS Result Diagrams: 03/11/20 14:24 03/12/20 04:47 - DIAGNOSTIC IMAGING Diagnostic Imaging Results: Final report reviewed - FOLLOW UP Follow Up: See PCP, Lisa Mackay NP in hospital follow-up. - TIME SPENT Time Spent in Discharge (Minutes): 45
--- NOTE | 2020-03-12 15:39 | Nuclear Medicine Report ---
PROCEDURE: Rest and pharmacological stress myocardial perfusion SPECT with gated imaging and ejection fraction INDICATIONS: Chest pain RADIOPHARMACEUTICAL: 8 mCi Tc-99m myoview IV at rest and 24 mCi Tc-99m myoview IV at peak exercise. Ihy-ygz-uaegdfuo was performed. TECHNIQUE: Radiopharmaceutical was injected at peak stress test, and also at rest. SPECT images wer e obtained. SPECT myocardial perfusion images were displayed in short axis, horizontal long axis, an d vertical long axis views. Gated images were reviewed using Auto[employer] software. COMPARISON: None available. FINDINGS: Raw data: There is good myocardial labeling by radiotracer. No significant motion artifacts. Lung- to-heart ratio is 0.37 (normal is less than 0.38 for tetrafosmin tracer). Left ventricle function: Gated images demonstrate normal left ventricle wall thickening. No segment al wall motion abnormality. No transient ischemic dilation; TID is 1.01 (normal less than 1.3). The left ventricle end-diastolic volume is normal. Left ventricle stress ejection fraction is greater t ladd 70%; normal values are above 45%. Myocardial perfusion: There is normal distribution of activity in the left and right ventricular jayy cardium. No fixed or reversible perfusion defects. IMPRESSION: 1. Normal myocardial perfusion images. 2. Normal left ventricular volume and systolic function. PQRS ATTESTATIONS: Measure 322 - Is this imaging test primarily performed on a low-risk surgery patient for preoperative evaluation within 30 days preceding their low-risk non-cardiac surgery? Low-risk surgery is defined as cardiac or myocardial infarction less than 1%, including (but not limited to) endoscopic pr ocedures, superficial procedures, cataract surgery, and excisional breast surgery: Answer: No Measure 323 - Is this imaging test performed primarily for the monitoring of an asymptomatic patient who had percutaneous coronary intervention on the visit date or within 2 years of the visit date? An swer: No Measure 324 - Is this imaging test performed primarily for the initial detection and risk assessment on an asymptomatic, low coronary heart disease patient? Low CHD risk definition = clinicians should consider the maximum number of available patient factors used to estimate risk based on Brick (A TP III criteria), typically age, gender, diabetes, smoking status, and use of blood pressure medicati on, and integrate age appropriate estimates for missing elements, such as LDL or standard blood press ure. Answer: No Reviewed by: Erin Muñoz MD on 03/12/2020 3:38 PM PDT Approved by: Erin Muñoz MD on 03/12/2020 3:38 PM PDT Station ID: [id number]
[2020-03-12 16:02] VITALS: BP 143/58
--- NOTE | 2020-03-12 19:30 | CARDIAC PROCEDURE NOTE ---
DATE OF SERVICE: 03/12/2020 Physician: Velia Brown MD PRIMARY CARE PHYSICIAN: Lisa Mackay NP INDICATION: Chest pain. CARDIAC RISK FACTORS: Only postmenopausal status. PROCEDURE: After signing informed consent, patient underwent a Lexiscan pharmaceutical stress test with nuclear myocardial perfusion imaging. RESTING HEART RATE: 57. PEAK HEART RATE: 103. RESTING BLOOD PRESSURE: 143/78. PEAK BLOOD PRESSURE: 162/80. Lexiscan was infused per protocol. Patient developed a painful "spasm" of her lower back, which is the location of the chronic low back pain, and had brief flushing, shortness of breath and a headache. There was no anterior chest pain. Oxygen saturation remained 94-99% on room air throughout the entire test. RESTING EKG: Normal sinus rhythm, left atrial and right atrial enlargement, early R/S transition. EKG AT PEAK: New T-wave flattening in leads II, III, aVF, and V3 through V6, and [address] depressions in leads II, III, aVF, and V3 through V6. These changes begin to normalize at 1 minute. SUMMARY 1. Abnormal resting EKG. 2. ST-segment depressions and T-wave abnormalities do suggest ischemia, during this pharmaceutical stress test. 3. Nuclear images reported separately. 4. This patient's cardiac risk based on all the above: Moderate-High. TD: 03/12/2020 18:41 PHONG
== END 2020-03-12 16:33 | disposition home or self-care (01) ==
LOC: EDUNIT# → ED 13:42 → MS2 16:33
PROVIDERS: ADMIT Internal Medicine; ATTEND Internal Medicine
DX: R07.9 Chest pain, unspecified (principal); G89.29 Other chronic pain; M54.9 Dorsalgia, unspecified; R91.1 Solitary pulmonary nodule; M48.8X6 Other specified spondylopathies, lumbar region; H04.129 Dry eye syndrome of unspecified lacrimal gland; Z87.891 Personal history of nicotine dependence
CPT/HCPCS: 36415; 71045; 71275; 74174; 78452; 80048; 80053; 80061; 83690; 84484; 85025; 93005; 93017; 93306; 99284; 99285; A9270; A9500; G0378; J2785; Q9967; 83721

== ENCOUNTER 2020-03-24 10:17 | Outpatient (CLI) | payer MEDICARE ==
[2020-03-24] MEDS ORDERED: GADOBUTROL 7.5 MMOL/7.5 ML VIAL ONE (10:29)
[2020-03-24] MEDS ORDERED: GADOBUTROL 7.5 MMOL/7.5 ML VIAL IVP ONE (11:08)
--- NOTE | 2020-03-24 13:37 | MRI Report ---
PROCEDURE: Lumbar Spine W/WO INDICATIONS: ABN FINDINGS ON CT CONTRAST: IV CONTRAST: Gadavist ml: 5 TECHNIQUE: Noncontrast sagittal T1 spin echo and T2 fast spin echo, sagittal STIR, axial T1 and T2 fast spin ech o through the lumbar spine. In cases with scoliosis, additional coronal T2 fast spin echo may be per formed. After the administration of contrast, sagittal and axial T1 spin echo with fat saturation th rough the lumbar spine. COMPARISON: Correlation is made with abdomen pelvis CT 03/11/2020 FINDINGS: Image quality: Motion artifact is noted. Alignment and curvature: There is moderate dextroconvex scoliosis. Minimal retrolisthesis is seen at L1-L2 and L2-L3. Marrow: Marrow is of normal overall signal. No acute vertebral body compression fractures. There is 30% loss of height centrally at L1, without acute features identified. No suspicious marrow enhancem ent. Spinal cord: Conus medullaris terminates at the L1 level. Visualized spinal cord demonstrates dione l signal, without suspicious enhancement. Paraspinous soft tissues: No paravertebral masses or abnormal enhancement. T12-L1: The disc height is well-preserved. There is loss of disc signal seen. Mild disc bulge is seen. No significant neural foraminal or central canal narrowing can be seen. L1-L2: At least moderate loss of disc height is seen. Endplate irregularity is seen. Mild to moder ate disc bulge is seen, which is eccentric to the right. There is moderate right-sided and mild to mo derate left-sided neuroforaminal narrowing seen. Mild central canal narrowing is seen. L2-L3: There is at least moderate loss of disc height. Loss of disc signal is seen. Moderate disc bulge is seen, which is eccentric to the left side. There is at least moderate left-sided and mild-to -moderate right-sided facet hypertrophy seen. Moderate bilateral neural foraminal narrowing is seen. Mild to moderate central canal narrowing is seen. L3-L4: The disc height is well-preserved. There is loss of disc signal seen. Mild to moderate disc bulge is seen. Mild to moderate facet hypertrophy is seen. Fluid is seen within the facet joints them selves. Mild bilateral neural foraminal narrowing is seen. Minimal central canal narrowing is seen . L4-L5: The disc height is well-preserved. There is loss of disc signal seen. Mild disc bulge is see n, with a mild central disc protrusion. At least moderate facet hypertrophy is seen. Fluid is seen wi thin the facet joints themselves. There is moderate right-sided and mild to moderate left-sided neur oforaminal narrowing seen. Mild to moderate central canal narrowing is seen. L5-S1: The disc height is well-preserved. There is loss of disc signal seen. Minimal disc bulge is seen. Mild facet hypertrophy is seen. No significant neural foraminal or central canal narrowing c an be seen. 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 IMPRESSION: Mild central compression deformity at L1, without acute features, with 30% loss of height centrally. Dextroconvex scoliosis and multiple levels of lumbar spine degenerative change can be seen. Reviewed by: Ramón Luke MD on 03/24/2020 12:36 PM [facility] Approved by: Ramón Luke MD on 03/24/2020 12:36 PM [facility] Station ID: [id number]
== END 2020-03-24 10:18 | disposition home or self-care (01) ==
LOC: DI 10:17
PROVIDERS: ATTEND Nurse Practitioner Family
DX: R93.89 Abnormal findings on diagnostic imaging of other specified body structures (principal); M51.26 Other intervertebral disc displacement, lumbar region; M41.86 Other forms of scoliosis, lumbar region
CPT/HCPCS: 72158; A9585

== ENCOUNTER 2021-09-21 14:01 | Outpatient (CLI) | payer MEDICARE ==
--- NOTE | 2021-09-22 13:56 | Mammography Report ---
BILATERAL DIGITAL SCREENING MAMMOGRAM 3D/2D: 09/21/2021 CLINICAL: Routine screening. Comparison is made to exams dated: 02/12/2019 mammogram, 07/22/2016 mammogram, 01/14/2015 mammogram, mammogram, 12/13/2012 mammogram, and 11/30/2011 mammogram - [facility]. The tissue of both breasts is predominantly fatty. There are benign calcifications in both breasts. No significant masses, calcifications, or other findings are seen in either breast. There has been no significant interval change. IMPRESSION: BENIGN There is no mammographic evidence of malignancy. A 1 year screening mammogram is recommended. This exam was interpreted at Station ID: [id number]. NOTE: For mammograms, a report in lay terms will be sent to the patient. Approximately 15% of breast malignancies will not be visualized mammographically. In the management of a palpable breast mass, a negative mammogram must not discourage biopsy of a clinically suspicious lesion. Electronically Signed By: Kenrick Mejia acr/penrad:09/21/2021 14:53:13 ACR BI-RADS Category 2: Benign Finding(s) 3342F PARENCHYMAL PATTERN: (F) - The breast(s) demonstrate(s) diffuse fatty replacement. BI-RADS CATEGORY: (2) - 2 RECOMMENDATION: (ANNUAL) - Recommend routine annual screening mammography. [id number] 1 year screening LATERALITY: (B)
== END 2021-09-21 14:02 | disposition home or self-care (01) ==
LOC: DI 14:01
PROVIDERS: ATTEND Nurse Practitioner Family
DX: Z12.31 Encounter for screening mammogram for malignant neoplasm of breast (principal)

== ENCOUNTER 2021-09-22 09:30 | Outpatient (CLI) | payer MEDICARE ==
[2021-09-22] MEDS ORDERED: GADOBUTROL 7.5 MMOL/7.5 ML VIAL ONE (10:51)
[2021-09-22 10:54] LABS: CREATININE 1.1 mg/dL (0.4-1.0)
--- NOTE | 2021-09-22 12:40 | MRI Report ---
PROCEDURE: Brain W/WO INDICATIONS: HYPOSMIA, CRANIAL NEUROPATHY CONTRAST: IV CONTRAST: Gadavist ml: 5.4 TECHNIQUE: Noncontrast axial T1 spin echo, axial T2 fast spin echo, sagittal and axial FLAIR, coronal T2 fast sp in echo, axial gradient echo, axial diffusion and ADC through the brain. After the administration of contrast, axial and coronal T1 spin echo with fat saturation through the brain. COMPARISON: Correlation is made with prior brain angiogram, 10/14/2017 FINDINGS: Image quality: Excellent. CSF spaces: Basal cisterns are patent. No extra-axial fluid collections. Ventricles are normal in size and shape. Brain: No midline shift. No intracranial bleeds or masses. No abnormal intracranial enhancement. There is cerebral volume loss for age. There is periventricular white matter chronic small vessel is chemic change. The brainstem appears normal. Diffusion-weighted images demonstrate no acute ischemi c insults. No chronic ischemic insults. Normal intravascular flow voids are present. Skull and face: Calvarial marrow is normal in signal. Orbits appear normal. Sinuses: Sinuses and mastoids appear clear. Mild to moderate rightward nasal septal deviation is in cidentally noted. IMPRESSION: Unremarkable intracranial study for age, without an imaging explanation found for the patient's prese nting symptoms. No masses or abnormal enhancement can be seen. Age-appropriate brain parenchymal volume loss and chronic small vessel ischemic change can be seen. No findings of acute or subacute infarction are seen. Reviewed by: Ramón Luke MD on 09/22/2021 11:39 AM [facility] Approved by: Ramón Luke MD on 09/22/2021 11:39 AM [facility] Station ID: [id number]
[2021-09-23] MEDS ORDERED: GADOBUTROL 7.5 MMOL/7.5 ML VIAL IVP ONE (09:23)
== END 2021-09-22 09:31 | disposition home or self-care (01) ==
LOC: LAB 09:30
PROVIDERS: ATTEND Otolaryngology
DX: J34.89 Other specified disorders of nose and nasal sinuses (principal); R43.8 Other disturbances of smell and taste
CPT/HCPCS: 36415; 70553; 82565; A9585

== ENCOUNTER 2021-09-22 09:35 | Outpatient (CLI) | payer MEDICARE ==
--- NOTE | 2021-09-22 10:23 | DEXA Report ---
PROCEDURE: Dexa Spine and/or Hip INDICATIONS: OSTEOPOROSIS TECHNIQUE: Dual energy x-ray absorptiometry (DXA) was performed on a [employer] System. Regions measur ed are the AP Spine, femoral neck, and if needed forearm. COMPARISON: 02/12/2019 FINDINGS: Lumbar Spine: Bone Mineral Density 1.017 g/cm/cm,T score -1.4, osteopenia Left Hip: Bone Mineral Density 0.738 g/cm/cm,T score -2.1, osteopenia Left Femoral Neck: Bone Mineral Density 0.746 g/cm/cm, T score -2.1, osteopenia (T score greater or equal to -1.0: NORMAL) (T score from -1.1 to -2.4: OSTEOPENIA) (T score less than or equal to -2.5 to: OSTEOPOROSIS) Impression: OSTEOPENIA. Patient is at increased risk for fracture. Patients with diagnosis of osteoporosis or osteopenia should have regular bone mineral density assess ment. For those eligible for Medicare, routine testing is allowed once every 2 years. Testing frequ ency can be increased for patients who have rapidly progressing disease or for those who are receivin g medical therapy to restore bone mass. Reviewed by: Rashad Hurst MD on 09/22/2021 10:21 AM PST Approved by: Rashad Hurst MD on 09/22/2021 10:21 AM PST Station ID: [id number]
== END 2021-09-22 09:36 | disposition home or self-care (01) ==
LOC: DI 09:35
PROVIDERS: ATTEND Nurse Practitioner Family
DX: M85.89 Other specified disorders of bone density and structure, multiple sites (principal)

== ENCOUNTER 2022-01-03 12:32 | Inpatient (IN) | payer MEDICARE ==
[2022-01-03] MEDS ORDERED: SODIUM CHLORIDE 0.9% 1,000 ML IV STA (13:53)
--- NOTE | 2022-01-03 13:56 | ED Physician Documentation ---
History of Present Illness - Stated complaint Stated Complaint: LT SIDE NUMBNESS - Chief complaint Chief Complaint: Neuro - History obtained from History obtained from: Patient - Additonal information Additional information: The patient comes to the emergency department chief complaint of left-sided numbness that has progressed to left-sided weakness over the last couple of days. Patient states that initially, she had her\on a hard surface and immediately felt an electrical, tingling sensation go down her arm. Patient states that this happened 3 days ago and that over the ensuing days, the she has developed numbness and tingling over her entire left side of the body and that she also felt that her left hand was weak today. She also states that her balance has felt slightly off, stemming from her left leg. No speech or visual deficits. No facial droop. She did feel some tingling of her left scalp today, as well. Patient denies any history of stroke. She does not have diabetes, hypertension, or tobacco abuse history. Patient states this is never happened before. She denies other complaints at this time. Review of Systems Ten Systems: 10 systems reviewed and negative Constitutional: reports: Reviewed and negative Eyes: reports: Reviewed and negative Ears: reports: Reviewed and negative Nose: reports: Reviewed and negative Throat: reports: Reviewed and negative Cardiac: reports: Reviewed and negative Respiratory: reports: Reviewed and negative GI: reports: Reviewed and negative : reports: Reviewed and negative Skin: reports: Reviewed and negative Musculoskeletal: reports: Reviewed and negative Neurologic: reports: Focal weakness, Numbness Psychiatric: reports: Reviewed and negative Endocrine: reports: Reviewed and negative Immunocompromised: reports: Reviewed and negative PD PAST MEDICAL HISTORY - Past Medical History Cardiovascular: None Respiratory: None Neuro: None Endocrine/Autoimmune: None GI: None INSIDE SALES PERSON: None : None HEENT: None Psych: None Musculoskeletal: Osteoarthritis, Osteoporosis, Chronic back pain, Other Derm: Other - Past Surgical History General: Colonoscopy HEENT: Tonsil/Adenoidectomy Derm: Skin cancer surgery - Present Medications Home Medications: Ambulatory Orders Medication Instructions Recorded Confirmed Multivitamin [Multi-Day Vitamins] 1 each PO DAILY 12/27/13 03/11/20 [place]-3/Dha/Epa/Fish Oil [Fish Oil 1 each PO DAILY 12/27/13 03/11/20 1,000 mg Softgel] Melatonin/Pyridoxine [Melatonin 5 10 mg PO QPM 03/11/20 03/11/20 mg Tablet] Meloxicam [Mobic] 15 mg PO DAILY 03/11/20 03/11/20 cycloSPORINE [Restasis] 1 drops EACHEYE BID 03/11/20 03/11/20 Aspirin [Aspirin EC] 81 mg PO DAILY #30 tablet. 03/12/20 - Allergies Allergies/Adverse Reactions: Allergies Allergy/AdvReac Type Severity Reaction Status Date / Time No Known Drug Allergies Allergy Verified 01/03/22 12:43 - Social History Does the pt smoke?: No Smoking Status: Never smoker Does the pt drink ETOH?: Yes Does the pt have substance abuse?: No - Immunizations Immunizations are current?: Yes - POLST Patient has POLST: No PD ED PE NORMAL - Vitals Vital signs reviewed: Yes - General General: Alert and oriented X 3, No acute distress, Well developed/nourished - HEENT HEENT: Atraumatic, PERRL, EOMI, Moist mucous membranes - Neck Neck: Supple, no meningeal sign - Cardiac Cardiac: RRR, No murmur, Strong equal pulses - Respiratory Respiratory: No respiratory distress, Clear bilaterally - Abdomen Abdomen: Soft, Non tender, Non distended - Derm Derm: Normal color, Warm and dry, No rash - Extremities Extremities: No deformity, No edema - Neuro Neuro: Alert and oriented X 3, assembling fabricator 2-12 intact, Normal speech, Other (Slightly decreased strength with left leg raise compared to right, but strength is 5+ bilaterally. Slightly decreased sensation throughout upper and lower extremities and patient reports touch triggers [id number]-[id number] sensation throughout her arm.) - Psych Psych: Normal mood, Normal affect Results - Vitals Vitals: Vital Signs - 24 hr 01/03/22 01/03/22 01/03/22 12:40 12:43 13:13 Temperature 37.0 C 37.0 C Heart Rate 59 L 59 L 60 Respiratory 14 14 18 Rate Blood Pressure 165/76 H 165/76 H 152/81 H O2 Saturation 100 100 97 01/03/22 01/03/22 01/03/22 13:30 14:00 14:30 Temperature Heart Rate 66 60 60 Respiratory 15 18 23 Rate Blood Pressure 154/82 H 150/80 H 170/88 H O2 Saturation 98 99 100 01/03/22 01/03/22 01/03/22 15:00 16:00 16:30 Temperature Heart Rate 62 66 66 Respiratory 18 16 16 Rate Blood Pressure 167/87 H 157/94 H 159/82 H O2 Saturation 96 100 100 Oxygen O2 Source Room air - Labs Labs: Laboratory Tests 01/03/22 01/03/22 14:15 14:15 WBC 7.8 RBC 4.08 L Hgb 13.5 Hct 40.5 MCV 99.3 H MCH 33.1 H MCHC 33.3 RDW 12.3 Plt Count 354 MPV 10.3 Neut # (Auto) 5.7 Lymph # (Auto) 1.4 L [place] # (Auto) 0.4 Eos # (Auto) 0.2 Baso # (Auto) 0.1 Absolute Nucleated RBC 0.00 Nucleated RBC % 0.0 Sodium 134 L Potassium 4.0 Chloride 98 L Carbon Dioxide 26 Anion Gap 10.0 BUN 17 Creatinine 0.9 Estimated GFR (MDRD) 61 L Glucose 93 Calcium 9.7 Total Bilirubin 1.1 H AST 25 ALT 23 Alkaline Phosphatase 84 Total Protein 7.4 Albumin 4.1 Globulin 3.3 Albumin/Globulin Ratio 1.2 Lipase 30 - Rads (name of study) MRI brain no contrast Radiology: Final report received, EMP read indepedently, See rad report (Acute right thalamic CVA) CT brain no contrast Radiology: Final report received, EMP read indepedently, See rad report (Negative) PD MEDICAL DECISION MAKING - ED course Complexity details: reviewed results, re-evaluated patient, considered differential, d/w patient, d/w family ED course: The patient was worked up with EKG and labs and initially, CT scan of the head, all of which were unremarkable. The patient was then sent for a noncontrast MRI of the brain which showed an acute right thalamic CVA. I discussed this With Dr. Cornejo, who is on-call for hospitalist service, and he agreed to admit the patient to his service. I have also informed the patient and her of the results. Patient was given an aspirin in the emergency department. Departure - Departure Disposition: 66 [facility] DC/Xfer Clinical Impression: CVA (cerebral vascular accident) Qualifiers: CVA mechanism: unspecified Qualified Code(s): I63.9 - Cerebral infarction, unspecified Condition: Serious
[2022-01-03 14:21] LABS: BASOPHILS # (AUTO) 0.1 10^3/uL (0.0-0.1); BASOPHILS % (AUTO) 0.8 %; EOSINOPHILS # (AUTO) 0.2 10^3/uL (0.0-0.7); EOSINOPHILS % (AUTO) 2.2 %; HCT - HEMATOCRIT 40.5 % (37.0-47.0); HGB - HEMOGLOBIN 13.5 g/dL (12.0-16.0); LYMPHOCYTES # (AUTO) 1.4 10^3/uL (1.5-3.5); LYMPHOCYTES % (AUTO) 18.5 %; MEAN CORPUSCULAR HEMOGLOBIN 33.1 pg (27.0-31.0); MEAN CORPUSCULAR HGB CONC 33.3 g/dL (32.0-36.0); MEAN CORPUSCULAR VOLUME 99.3 fL (81.0-99.0); MEAN PLATELET VOLUME 10.3 fL (7.9-10.8); MONOCYTES # (AUTO) 0.4 10^3/uL (0.0-1.0); MONOCYTES % (AUTO) 5.5 %; NEUTROPHILS # (AUTO) 5.7 10^3/uL (1.5-6.6); NEUTROPHILS % (AUTO) 72.7 %; PLT - PLATELET COUNT 354 10^3/uL (130-450); RED BLOOD COUNT 4.08 10^6/uL (4.20-5.40); RED CELL DISTRIBUTION WIDTH 12.3 % (12.0-15.0); WHITE BLOOD COUNT 7.8 x10^3/uL (4.8-10.8)
[2022-01-03 14:34] LABS: ALBUMIN 4.1 g/dL (3.2-5.5); ALBUMIN/GLOBULIN RATIO 1.2 (1.0-2.2); BILIRUBIN,TOTAL 1.1 mg/dL (0.2-1.0); CALCIUM 9.7 mg/dL (8.5-10.3); CREATININE 0.9 mg/dL (0.4-1.0); TOTAL PROTEIN 7.4 g/dL (6.7-8.2)
--- NOTE | 2022-01-03 14:40 | CT Report ---
PROCEDURE: HEAD WO INDICATIONS: L side numbness/weakness TECHNIQUE: Noncontrast 4.5 mm thick angled axial sections acquired from the foramen magnum to the vertex. For r adiation dose reduction, the following was used: automated exposure control, adjustment of mA and/or kV according to patient size. COMPARISON: MRI of brain dated 09/22/2021. FINDINGS: Image quality: Excellent. CSF spaces: Basal cisterns are patent. No extra-axial fluid collections. The ventricles are symmet franklin in size and shape. Brain: No intracranial bleeds or masses. There is cerebral volume loss for age, with resultant vent ricular and sulcal prominence. There are periventricular and deep white matter chronic small vessel ischemic changes. There is intracranial internal carotid artery atherosclerosis. Skull and face: Calvarium and visualized facial bones appear intact, without suspicious lesions. Sinuses: Visualized sinuses and mastoids are clear. IMPRESSION: No CT evidence of acute intracranial abnormalities. Reviewed by: Jeremy Hawthorne MD on 01/03/2022 2:39 PM PDT Approved by: Jeremy Hawthorne MD on 01/03/2022 2:39 PM PDT Station ID: [id number]
--- NOTE | 2022-01-03 16:14 | MRI Report ---
PROCEDURE: Brain W/O INDICATIONS: L side weakness TECHNIQUE: Noncontrast axial T1 spin echo, axial T2 fast spin echo, sagittal and axial FLAIR, coronal T2 fast sp in echo, axial gradient echo, axial diffusion and ADC through the brain. COMPARISON: 09/22/2021. FINDINGS: Image quality: Excellent. CSF Spaces: Basal cisterns are patent. No extra-axial fluid collections. Ventricles are normal in size and shape. Brain: No intracranial masses or hemorrhage. White/white matter interface is normal. There is mild, diffuse cerebral and loss. There are mild to moderate periventricular and subcortical white matter ch ronic microvascular ischemic changes. Brainstem appears normal. No GRE weighted artifact (the brain parenchyma. Small punctate focus of restricted diffusion noted in the right thalamus compatible with acute lacunar infarct. No chronic ischemic insults. Normal intravascular flow voids are present. Skull and face: Calvarium has normal marrow signal. Orbits appear normal. Sinuses: Sinuses and mastoids are clear. IMPRESSION: 1. Acute right thalamic lacunar infarct. 2. No intracranial hemorrhage. 3. No abnormal internal mass or mass effect. 4. Mild, diffuse volume loss. 5. Pjaw-mp-aruguvow periventricular and subcortical white matter chronic microvascular ischemic meza es Reviewed by: Cindi Douglas MD, PhD on 01/03/2022 4:12 PM PDT Approved by: Cindi Douglas MD, PhD on 01/03/2022 4:12 PM PDT Station ID: [id number]
[2022-01-03] MEDS ORDERED: SODIUM CHLORIDE FLUSH 0.9% 10 ML SYRINGE IVP PRN (16:42)
[2022-01-03] MEDS ORDERED: ONDANSETRON 4 MG/2 ML VIAL IVP PRN (16:42)
[2022-01-03] MEDS ORDERED: ONDANSETRON ODT 4 MG TABLET TL PRN (16:42)
[2022-01-03] MEDS ORDERED: ACETAMINOPHEN 325 MG TABLET PO PRN (16:42)
[2022-01-03] MEDS ORDERED: CLOPIDOGREL 300 MG TABLET PO ONE (16:50)
[2022-01-03] MEDS ORDERED: ASPIRIN CHEW 81 MG TABLET PO STA ×2 (16:50→16:54)
[2022-01-03] MEDS ORDERED: IOVERSOL 320 100 ML VIAL IVP ONE ×2 (17:14→20:16)
--- NOTE | 2022-01-03 17:23 | HISTORY & PHYSICAL EXAMINATION ---
Chief Complaint - Chief Complaint Chief Complaint: Left sided numbness History of Present Illness - Admitted From Admitted From:: Home - History Obtained From Records Reviewed: [facility] History obtained from: Patient, ER Physician, EMR - History of Present Illness HPI Comment/Other: This is a 76-year-old female with a past medical history significant for chronic low back pain who presents today due to left-sided numbness. She states her symptoms first began Monday after she hit the inside of her shoulder and she felt sudden onset tingling radiating down her left hand. She believes that either Monday evening or Monday she started to develop left arm and left leg numbness. She also felt a little unsteady on her feet. Her and her assessed her for stroke but she did not have any slurred speech or facial droop so they decided to wait things out. She still having numbness today and so she came to the emergency department. She reports no prior history of stroke, hypertension, diabetes, atrial fibrillation. She does not take aspirin after she stopped taking it over a year ago after reading mixed studies about it. She reports no headache, fever, chills, change in vision. She does not really feel weak in any of her extremities. Just the numbness. In the emergency department, she underwent a CT of the head which showed no acute normalities. She then underwent a MRI which confirmed an acute right thalamic infarct. Given this, medicine was consulted for admission. We discussed goals of care and she would like to be a full code. History - Past Medical History Cardiovascular: reports: None Respiratory: reports: None Neuro: reports: None Endocrine/Autoimmune: reports: None GI: reports: None AIR HAMMER STRIPPER: reports: None : reports: None HEENT: reports: None Psych: reports: None Musculoskeletal: reports: Osteoarthritis, Osteoporosis, Chronic back pain Derm: reports: Other MRSA Hx?: No Other Past Medical History: skin cancer, carcinoma, removed. - Past Surgical History General: reports: Colonoscopy HEENT: reports: Tonsil/Adenoidectomy Derm: reports: Skin cancer surgery - Family & Social History Family History Comment/Other: She reports her mother had a history of a stroke. Her brother passed with the age of 50 from a myocardial infarction. Living arrangement: At home Living Situation: Alone Social History Notes: She lives at home with her , Alexis. She had a remote smoking history but quit over 30 years ago. She will have an occasional alcoholic beverage. - POLST Patient has POLST: No Meds/Allgy - Home Medications Home Medications: Ambulatory Orders Medication Instructions Recorded Confirmed Multivitamin [Multi-Day Vitamins] 1 each PO DAILY 12/27/13 03/11/20 [place]-3/Dha/Epa/Fish Oil [Fish Oil 1 each PO DAILY 12/27/13 03/11/20 1,000 mg Softgel] Melatonin/Pyridoxine [Melatonin 5 10 mg PO QPM 03/11/20 03/11/20 mg Tablet] Meloxicam [Mobic] 15 mg PO DAILY 03/11/20 03/11/20 cycloSPORINE [Restasis] 1 drops EACHEYE BID 03/11/20 03/11/20 Aspirin [Aspirin EC] 81 mg PO DAILY #30 tablet. 03/12/20 DULoxetine [Cymbalta] 60 mg PO DAILY 01/03/22 Gabapentin [Neurontin] 100 mg PO 01/03/22 Ipratropium [place] 2 sprays NS QID 01/03/22 - Allergies Allergies/Adverse Reactions: Allergies Allergy/AdvReac Type Severity Reaction Status Date / Time No Known Drug Allergies Allergy Verified 01/03/22 12:43 Review of Systems - Constitutional Constitutional: denies: Fever, Chills, Weakness - Eyes Eyes: denies: Blurred vision, Vision loss - Ears, Nose & Throat Ears, Nose & Throat: denies: Nasal discharge, Nasal congestion - Cardiovascular Cariovascular: reports: Palpitations. denies: Chest pain, Lightheadedness, Exertional dyspnea, Decr. exercise tolerance - Respiratory Respiratory: denies: Cough, SOB at rest, SOB with exertion - Gastrointestinal Gastrointestinal: denies: Abdominal pain, Nausea, Vomiting - Genitourinary Genitourinary: denies: Dysuria, Frequency, Urgency, Hematuria - Musculoskeletal Musculoskeletal: reports: Back pain, Joint pain - Integumentary Integumentary: denies: Rash - Neurological Neurological: reports: Numbness. denies: General weakness, Focal weakness, Pre- existing deficit, Slurred speech - Hematologic/Lymphatic Hematologic/Lymphatic: denies: Anemia, Bruising - All Other Systems All Other Systems: reports: Reviewed and negative Prior Level of Functionality: She is independent with her ADLs. Exam - Vital Signs Reviewed Vital Signs: Yes Vital Signs: Vital Signs x48h Temp Pulse Resp BP Pulse Ox 01/03/22 16:30 66 16 159/82 H 100 01/03/22 16:00 66 16 157/94 H 100 01/03/22 15:00 62 18 167/87 H 96 01/03/22 14:30 60 23 170/88 H 100 01/03/22 14:00 60 18 150/80 H 99 01/03/22 13:30 66 15 154/82 H 98 01/03/22 13:13 60 18 152/81 H 97 01/03/22 12:43 37.0 C 59 L 14 165/76 H 100 01/03/22 12:40 37.0 C 59 L 14 165/76 H 100 - Physical Exam General Appearance: positive: No acute distress, Alert Eyes Bilateral: positive: Normal inspection, Conjunctivae nml ENT: positive: ENT inspection nml Neck: positive: Nml inspection Respiratory: positive: No respiratory distress. negative: Wheezes, Rales Cardiovascular: positive: Regular rate & rhythm, No murmur. negative: Tachycardia Abdomen: positive: Non-tender, No distention. negative: Tenderness Skin: positive: Warm, Dry Extremities: positive: No pedal edema Neurologic/Psychiatric: positive: CN's nml (2-12), Sensory loss, Other (She has slightly decreased sensation in the left upper and left lower extremities. She has 5 out of 5 motor strength in her right upper, right lower, and left lower extremity. She has a very faint decreased motor strength of the left upper ext remity.). negative: Sensation nml, Disoriented to person, Disoriented to place, Disoriented to time, Facial droop, Slurred/abnml speech Conclusion/Plan - Problem List (1) Right thalamic infarction Conclusion/Plan: This was evident on the MRI. She reports he is not a candidate for TPA given the timing of her symptoms. Fortunately, it appears most of her symptoms are related to numbness and her motor strength is quite excellent. Her NIHSS score is less than 5. Given the stroke, we will admit her under inpatient status. We will start her on dual antiplatelet therapy with aspirin and Plavix. She will be giving a loading dose of both today. These will likely need to be continued for 21 days given her low NIHSS score. I will sign out to the daytime hospitalist to tomorrow to consider discussing this with neurology to get their input. We will order a CT angiogram of the head and neck to evaluate for any potential significant stenosis. We will allow for permissive hypertension. We will monitor her on telemetry and order EKG. We will see if we can obtain an echocardiogram tomorrow as the daytime hospitalist is a continuous crusher operator by training. If not then this can be done on an outpatient basis. Check A1c and lipid panel. We will consult PT/OT. (2) Low back pain Conclusion/Plan: This is chronic for her. We will continue her home gabapentin and Tylenol as n eeded. Qualifiers: Chronicity: chronic - Lab Results Lab results reviewed: Yes Fish Bones: 01/03/22 14:15 01/03/22 14:15 - Diagnostic Imaging Results Diagnostic Imaging Results: positive: Final report reviewed Core Measures - Anticipated LOS I expect patient to be DC'd or transferred within 96 hours.: Yes - Issues Hospital Issues and Management Plan: 76-year-old female presents with left-sided numbness found have an acute right thalamic infarct. She will be admitted for further management. - DVT/VTE - Prophylaxis VTE/DVT Device ordered at admit?: Yes VTE/DVT Prophylaxis med ordered at admit?: No
[2022-01-03 17:24] LABS: PT - PROTHROMBIN TIME 10.8 secs (9.9-12.6)
[2022-01-03] MEDS: SODIUM CHLORIDE FLUSH 0.9% 10 ML SYRINGE IVP SCH (17:54)
[2022-01-03 18:13] LABS: B. PARAPERTUSSIS- RESP PCR PAN NOT DETECTED; B. PERTUSSIS- RESP PCR PANEL NOT DETECTED; C. PNEUMONIAE- RESP PCR PANEL NOT DETECTED; CORONAVIRUS 229E-RESP PCR NOT DETECTED; CORONAVIRUS HKU1-RESP PCR NOT DETECTED; CORONAVIRUS NL63-RESP PCR NOT DETECTED; CORONAVIRUS OC43-RESP PCR NOT DETECTED; HUMAN METAPNEUMOVIRUS NOT DETECTED; INFLUENZA A- RESP PCR PANEL NOT DETECTED; INFLUENZA B - RESP PCR PANEL NOT DETECTED; M. PNEUMONIAE- RESP PCR PANEL NOT DETECTED; PARAINFLUENZA VIRUS 1 NOT DETECTED; PARAINFLUENZA VIRUS 2 NOT DETECTED; PARAINFLUENZA VIRUS 3 NOT DETECTED; PARAINFLUENZA VIRUS 4 NOT DETECTED; RHINOVIRUS/ENTEROVIRUS NOT DETECTED; RSV- RESP PCR PANEL NOT DETECTED; SARS-CoV-2 -RESP PCR PANEL NOT DETECTED
--- NOTE | 2022-01-03 18:13 | CT Report ---
PROCEDURE: CT angiogram brain with contrast INDICATIONS: Left sided neuro deficit. CONTRAST: IV CONTRAST: Optiray 320 ml: 80 PO CONTRAST: *NO PO CONTRAST TECHNIQUE: After the administration of intravenous contrast, 1 mm thick sections acquired through the [place]. Postcontrast 4.5 mm thick sections then re-acquired from the foramen magnum to the vertex. For radiation dose reduction, the following was used: automated exposure control, adjustment of mA a nd/or kV according to patient size. COMPARISON: MRI brain 01/03/2022 FINDINGS: Image quality: Excellent. Anterior circulation: Intracranial internal carotid arteries are normal in size and flow. The flow within the paired anterior cerebral arteries is normal and symmetric. The flow within the middle cer ebral arteries is normal and symmetric. The anterior communicating artery is seen. No aneurysms are seen. Posterior circulation: Visualized portions of the vertebral arteries demonstrate normal caliber, and join to form a normal appearing basilar artery. Flow within the posterior cerebral arteries is norm al and symmetric. No aneurysms are seen. Left vertebral artery dominance. IMPRESSION: Unremarkable CT angiogram of the brain. No large vessel occlusion, aneurysm or vascular malformation Reviewed by: Aleksey Tavares MD on 01/03/2022 5:11 PM MINE Approved by: Aleksey Tavares MD on 01/03/2022 5:11 PM AKJEANNIE Station ID: [id number]
--- NOTE | 2022-01-03 18:16 | CT Report ---
PROCEDURE: CT angiogram of the neck with contrast INDICATIONS: Left sided neuro deficit. CONTRAST: IV CONTRAST: Optiray 320 ml: 80 PO CONTRAST: *NO PO CONTRAST TECHNIQUE: After the administration of intravenous contrast, 1.5 mm axial sections acquired from the aortic arch to the [place]. Coronal 3-D maximum intensity projection (MIP) and/or volume rendering ref ormats were then performed. For radiation dose reduction, the following was used: automated exposur e control, adjustment of mA and/or kV according to patient size. COMPARISON: None. FINDINGS: Image quality: Excellent. Carotid system: The great vessels demonstrate a conventional anatomy as they arise from the aortic a rch. The origins of the common carotid arteries appear patent. The common carotid arteries demonstr ate normal calibers and courses. The bifurcation regions appear normal bilaterally. The internal ca rotid arteries demonstrate normal caliber and course. Posterior circulation: The origins of the vertebral arteries appear patent. The more superior porti ons of the vertebral arteries demonstrate normal course and caliber. They join to form a normal appe aring basilar artery. Left vertebral artery dominance Soft tissues: Visualized neck soft tissues demonstrate no suspicious abnormalities. The thyroid is normal in size and there are no incidental findings. Minimal upper lobe partially imaged atelectasis and or infiltrate Bones: No suspicious bony lesions. Visualized cervical spine appears normally aligned. IMPRESSION: 1. Both proximal ICA are widely patent without stenosis. 2. Incidental right upper lobe partially imaged atelectasis and or infiltrate. The estimate of stenosis included in the report of the imaging study was calculated using the NASCET method Reviewed by: Aleksey Tavares MD on 01/03/2022 5:14 PM MINE Approved by: Aleksey Tavares MD on 01/03/2022 5:14 PM AKJEANNIE Station ID: [id number]
--- NOTE | 2022-01-03 18:56 | PHARMACY PROGRESS NOTE ---
- Best Possible Medication History Admit Date and Time: 01/03/22 4152 Processed by: Pharmacy Medication History completed: Yes Patient Interview: Completed Secondary Source(s): Pharmacy records, Insurance records As the person ultimately responsible for medication therapy, providers are able to order a medication from an existing home medication list in [facility] via the "Reconcile Routine" prior to Confirmation of that medication by technical support professional. Such practice is discouraged except when the physician, in their clinical judgment, deems that a medical need exists for a medication without regard to previous use.
[2022-01-03] MEDS ORDERED: ATORVASTATIN 40 MG TABLET PO SCH (21:00)
[2022-01-04 05:02] LABS: BASOPHILS # (AUTO) 0.1 10^3/uL (0.0-0.1); EOSINOPHILS # (AUTO) 0.2 10^3/uL (0.0-0.7); EOSINOPHILS % (AUTO) 4.1 %; HCT - HEMATOCRIT 38.1 % (37.0-47.0); HGB - HEMOGLOBIN 12.8 g/dL (12.0-16.0); LYMPHOCYTES # (AUTO) 1.6 10^3/uL (1.5-3.5); MEAN CORPUSCULAR HEMOGLOBIN 33.2 pg (27.0-31.0); MEAN CORPUSCULAR HGB CONC 33.6 g/dL (32.0-36.0); MEAN PLATELET VOLUME 10.4 fL (7.9-10.8); MONOCYTES # (AUTO) 0.6 10^3/uL (0.0-1.0); MONOCYTES % (AUTO) 9.5 %; NEUTROPHILS # (AUTO) 3.4 10^3/uL (1.5-6.6); NEUTROPHILS % (AUTO) 58.1 %; PLT - PLATELET COUNT 331 10^3/uL (130-450); RED BLOOD COUNT 3.85 10^6/uL (4.20-5.40); RED CELL DISTRIBUTION WIDTH 12.3 % (12.0-15.0); WHITE BLOOD COUNT 5.8 x10^3/uL (4.8-10.8)
[2022-01-04 05:07] LABS: CALCIUM 9.1 mg/dL (8.5-10.3); POTASSIUM 4.1 mmol/L (3.5-5.0)
[2022-01-04] MEDS: SODIUM CHLORIDE FLUSH 0.9% 10 ML SYRINGE IVP SCH ×2 (08:36→08:39)
--- NOTE | 2022-01-04 08:39 | XRAY Report ---
PROCEDURE: Chest 1 View X-Ray INDICATIONS: RUL infiltrate of head CT TECHNIQUE: One view of the chest was acquired. COMPARISON: March 11, 2020. FINDINGS: SUPPORT DEVICES: None. LUNGS/PLEURA: Hyperexpanded. No focal consolidation, pleural effusion or space-occupying pneumothorax . MEDIASTINUM: The cardiomediastinal silhouette is within normal limits. BONES/SOFT TISSUES: No acute abnormality. IMPRESSION: 1.No acute cardiopulmonary abnormality. Reviewed by: Getachew Elizalde MD on 01/04/2022 8:38 AM PDT Approved by: Getachew Elizalde MD on 01/04/2022 8:38 AM PDT Station ID: [id number]
[2022-01-04 08:40] LABS: CHOL/HDL RATIO 3.4 (<4.4); CHOLESTEROL 155 mg/dL; HDL CHOLESTEROL 45 mg/dL; LDL CHOLESTEROL,CALCULATED 72 mg/dL; LDL/HDL RATIO 1.6 (<4.4); TRIGLYCERIDES 191 mg/dL; VLDL CHOLESTEROL 38 mg/dL
[2022-01-04] MEDS ORDERED: ASPIRIN CHEW 81 MG TABLET PO SCH (09:00)
[2022-01-04] MEDS ORDERED: ENOXAPARIN 40 MG/0.4 ML SYRINGE SUBQ SCH (09:00)
[2022-01-04] MEDS ORDERED: CLOPIDOGREL 75 MG TABLET PO SCH (09:00)
[2022-01-04] MEDS: GABAPENTIN 100 MG CAPSULE PO SCH ×2 (09:41→13:53)
[2022-01-04] MEDS ORDERED: MELOXICAM 7.5 MG TABLET PO SCH (10:00)
[2022-01-04] MEDS ORDERED: Cyclosporine [Restasis] EACHEYE SCH (10:00)
[2022-01-04] MEDS ORDERED: MULTIVITAMIN TABLET PO SCH (12:00)
--- NOTE | 2022-01-04 13:57 | Discharge Plan ---
Discharge Plan Problem Reviewed?: Yes Disposition: Home, Self Care Condition: Stable Prescriptions: Aspirin EC [Ecotrin] 81 mg PO DAILY #30 tablet Clopidogrel [Plavix] 75 mg PO DAILY #21 tablet Diet: Cardiac (Low sweets diet also) Activity Restrictions: Activity as Tolerated (Decrease exercise from 1 hour to 30 min and do endurance only, no interval training or weight lifting) Shower Restrictions: No Driving Restrictions: No Instruction Topics: Stroke Taking Meds Health Concerns: You were admitted with symptoms of numbness of your left arm and leg and you were diagnosed with a stroke by MRI brain imaging. You are being discharged and advised to take daily aspirin lifelong, and also to take 21 days of Plavix 75 mg daily. Also you need to adjust your diet and decrease your sweets since your triglyceride level was high when we checked your lipid panel. The new prescription was electronically sent to the [facility] in [place]. You may resume all your other pre-hospital medications. Please see your Primary Care Provider as scheduled in the next 7-10 days. You will need a referral to outpatient Physical Therapy and Occupational Therapy from your PCP. Plan of Treatment: As above. Care Goals: Improvement in symptoms and stabilization are the goals. Assessment: The patient understands and is agreeable with the plan. Additional Instructions or Follow Up instructions: If you have new or worsening symptoms, call your PCP for advice or come to the ER. Follow-Up Care: Outpatient Rehab - PT, Outpatient Rehab - OT No Smoking: If you smoke, Please STOP! Call for help. Follow-up with: MIKAELA ROCKWELL ARNP [Primary Care Provider] -
--- NOTE | 2022-01-04 14:02 | DISCHARGE SUMMARY ---
Discharge Summary Admit Date: 01/03/22 Discharge Date: 01/04/22 Discharging Provider: Dr Velia Brown Primary Care Provider: ZULEMA Mackay Code Status: Attempt Resuscitation Condition at Discharge: Fair Discharge Disposition: 01 Home, Self Care - HPI History of Present Illness: From the admission H&P of Dr Alonzo Cornejo: This is a 76-year-old female with a past medical history significant for skin cancer of her lip, chronic low back pain who presents today due to left-sided numbness. She states her symptoms first began Monday (3 days ago) after she hit the inside of her shoulder and she felt sudden onset tingling radiating down her left hand. She believes that either Monday evening (2 days ago) or yesterday, Monday, she started to develop left arm and left leg numbness. She also felt a little unsteady on her feet. Her assessed her for stroke but she did not have any slurred speech or facial droop so they decided to wait things out. She still was having numbness today and so she came to the emergency department. She reports no prior history of stroke, hypertension, diabetes, or atrial fibrillation. She was on daily baby aspirin but does not take daily aspirin now, after she stopped taking it about a year ago, after reading mixed studies about it. She reports no headache, fever, chills, change in vision. She does not really feel weak in any of her extremities, just the numbness. In the emergency department, she underwent a CT of the head which showed no acute normalities. She then underwent a MRI which confirmed an acute right thalamic infarct. Given this, the Hospitalist team was consulted for admission. We discussed her goals of care and she would like to be a Full Code. - HOSPITAL COURSE Hospital Course: (1) Right thalamic infarction This was evident on the brain MRI. She was not a candidate for TPA given the long duration of her symptoms. Fortunately, most of her symptoms were numbness and her motor strength was good. We admitted her to Inpatient status, started her on dual antiplatelet therapy with aspirin and Plavix. She had a CT angiogram of the head and neck which was neg for stenosis. We allowed for permissive hypertension. Telemetry monitoring showed no Afib. A limited bedside Echocardiogram was done by myself, as a Board-certified Energy Conservation Specialist and this showed no clots or PFO by "bubble study". She was seen by PT and OT who advised outpatient PT and OT for rehab, which will need to be ordered by her PCP. She s hould be on Plavix for 21 days and lifelong daily aspirin. (2) Low back pain This is chronic for her. We continued her home Gabapentin and Tylenol as needed. 3) Hypertriglyceridemia Her Triglyceride result was 191 from her fasting Lipid panel, and LDL was good at 70. She admitted to eating a diet high in sweets and carbohydrates. She was advised to cut the sweets off completely and to decrease the carbs by half. This should be tried before starting her on a med like Fenofibrate. A repeat fasting lipid panel should be done in 3 months, after those dietary changes, with a target Triglyceride of <150. 4) Right pulmonary nodule There was an incidental finding of a right lung mass reported on CTA imaging of the neck. When she was here in 02/2021, a right lung nodule was reported also as an incidental finding on chest imaging. Further evaluation and management is advised, as she is an ex-smoker. 5) Hx of basal cell carcinoma, of lip As per history. - ALLERGIES Allergies/Adverse Reactions: Allergies Allergy/AdvReac Type Severity Reaction Status Date / Time No Known Drug Allergies Allergy Verified 01/03/22 12:43 - MEDICATIONS Home Medications: Ambulatory Orders Medication Instructions Recorded Confirmed Multivitamin [Multi-Day Vitamins] 1 each PO DAILY 12/27/13 01/03/22 [place]-3/Dha/Epa/Fish Oil [Fish Oil 1 each PO DAILY 12/27/13 01/03/22 1,000 mg Softgel] Meloxicam [Mobic] 15 mg PO DAILY 03/11/20 01/03/22 cycloSPORINE [Restasis] 1 drops EACHEYE BID 03/11/20 01/03/22 Calcium Carbonate/Vitamin D3 1 each PO BID 01/03/22 01/03/22 [Calcium 600-Vit D3 200 Tablet] Gabapentin [Neurontin] 100 mg PO TID 01/03/22 01/03/22 Ipratropium [place] 2 sprays NS DAILY 01/03/22 01/03/22 Aspirin EC [Ecotrin] 81 mg PO DAILY #30 tablet 01/04/22 Clopidogrel [Plavix] 75 mg PO DAILY #21 tablet 01/04/22 - PHYSICAL EXAM AT DISCHARGE General Appearance: positive: No acute distress, Alert Eyes Bilateral: positive: Normal inspection, EOMI ENT: positive: No signs of dehydration Neck: positive: Nml inspection, No JVD Respiratory: positive: No respiratory distress Cardiovascular: positive: Regular rate & rhythm, No murmur Abdomen: positive: Non-tender, No distention Skin: positive: Warm, Dry Extremities: positive: Non-tender, No pedal edema Neurologic/Psychiatric: positive: Oriented x3, Motor nml (Sensation abnormal in L arm and first 2 fingers, and in lateral left leg) Reflexes: Ankle (L): 4+ Babinski Reflex: Left: Up - LABS Result Diagrams: 01/04/22 04:12 01/04/22 04:12 - DIAGNOSTIC IMAGING Diagnostic Imaging Results: Final report reviewed - FOLLOW UP Follow Up: See PCP in 7-10 days - TIME SPENT Time Spent in Discharge (Minutes): 60
[2022-01-04 14:31] VITALS: BP 120/78
[2022-01-05] MEDS ORDERED: FENOFIBRATE 48 MG TABLET PO SCH (09:00)
== END 2022-01-04 14:45 | disposition home or self-care (01) | DRG 66 ==
LOC: ED 12:32 → MS2 16:42
PROVIDERS: ADMIT Internal Medicine; ATTEND Internal Medicine
DX: I63.9 Cerebral infarction, unspecified (principal); G81.94 Hemiplegia, unspecified affecting left nondominant side; Z20.822 Contact with and (suspected) exposure to COVID-19; M54.9 Dorsalgia, unspecified; M54.50 Low back pain, unspecified; E78.1 Pure hyperglyceridemia; R91.1 Solitary pulmonary nodule; R26.81 Unsteadiness on feet; R20.0 Anesthesia of skin; G89.29 Other chronic pain; Z87.891 Personal history of nicotine dependence; Z85.819 Personal history of malignant neoplasm of unspecified site of lip, oral cavity, and pharynx
CPT/HCPCS: 36415; 70450; 70496; 70498; 70551; 71045; 80048; 80053; 80061; 81599; 83690; 85025; 85610; 87633; 97161; 97165; 99283; 99285; A9270; Q9967; 83036; 83721; 93005

== ENCOUNTER 2022-01-27 08:05 | Outpatient (CLI) | payer MEDICARE ==
[2022-01-27 08:46] LABS: ALBUMIN 4.3 g/dL (3.2-5.5); ALBUMIN/GLOBULIN RATIO 1.2 (1.0-2.2); ALKALINE PHOSPHATASE 67 IU/L (42-121); ALT ALANINE AMINOTRANSFERASE 19 IU/L (10-60); AST ASPARTATE AMINOTRANSFERASE 23 IU/L (10-42); BUN - BLOOD UREA NITROGEN 24 mg/dL (6-20); CALCIUM 9.6 mg/dL (8.5-10.3); CARBON DIOXIDE - CO2 27 mmol/L (21-32); CHLORIDE 98 mmol/L (101-111); CHOL/HDL RATIO 3.3 (<4.4); CHOLESTEROL 175 mg/dL; GFR - MDRD 54 (>89); GLUCOSE 97 mg/dL (70-100); HDL CHOLESTEROL 53 mg/dL; LDL CHOLESTEROL,CALCULATED 90 mg/dL; LDL/HDL RATIO 1.7 (<4.4); POTASSIUM 4.1 mmol/L (3.5-5.0); SODIUM 134 mmol/L (135-145); TOTAL PROTEIN 7.8 g/dL (6.7-8.2); TRIGLYCERIDES 161 mg/dL; VLDL CHOLESTEROL 32 mg/dL
== END 2022-01-27 08:06 | disposition home or self-care (01) ==
LOC: LAB 08:05
PROVIDERS: ATTEND Nurse Practitioner Family
DX: E78.1 Pure hyperglyceridemia (principal); R91.1 Solitary pulmonary nodule
CPT/HCPCS: 36415; 80053; 80061; 83721

== ENCOUNTER 2022-01-28 09:01 | Outpatient (CLI) | payer MEDICARE ==
--- NOTE | 2022-01-28 12:08 | CT Report ---
PROCEDURE: CHEST WO INDICATIONS: NODULE OF LUNG TECHNIQUE: Noncontrast 1mm axial images were acquired from the pulmonary apices to the posterior costophrenic an gles. Axial 5 mm soft tissue kernel reconstructions were performed as well as 8 mm axial MIP and cor onal and sagittal 5 mm reformations. For radiation dose reduction, the following was used: automate d exposure control, adjustment of mA and/or kV according to patient size. COMPARISON: CT chest angio, with and without, 03/11/2020. FINDINGS: Image quality: Excellent. Lungs and pleura: The small subpleural nodule in the right lower lobe is no longer visualized, likel y caused by atelectasis. No new nodules identified. Nodule 1: 3 mm; right upper lobe; series 5 image 53. Nodule 2: 3 mm; right upper lobe; series 3 image 84. Nodule 3: 4 mm; right upper lobe; series 5 image 85. Nodule 4: 4 mm; left upper lobe; series 5 image 48. Nodule 5: 4 mm; lingula; series 5 image 206. No acute air space opacities. No pleural effusions or pneumothorax. Central and peripheral airways are patent and normal in caliber. Mediastinum: Heart size is normal. Small pericardial effusion. No mediastinal adenopathy by size cr iteria. Thoracic aorta and central pulmonary arteries are normal in size. Mild atherosclerosis. Esop hagus is normal in caliber. No hiatal hernia. Bones and chest wall: No suspicious bony lesions. No vertebral body compression fractures. There is moderate scoliosis and degenerative changes in thoracic and visualized upper lumbar spine. No axilla ry or supraclavicular adenopathy by size criteria. The thyroid is normal in size and there are no in cidental findings. Abdomen: There is a 1 cm indeterminate hepatic hypodensity, most likely a cyst. Visualized upper abd ominal solid organs and bowel loops appear normal in the absence of contrast. IMPRESSION: 1. Resolution of previously seen right lower lobe nodule. 2. Multiple new lung nodules. Please see enclosed follow-up recommendation. 3. Small pericardial effusion. Fleischner Society criteria for SOLID lung nodule followup. Nodule size (mm)Low-risk patientHigh-risk patient "d4No follow-up neededFollow-up at 12 mo; if no change, no further follow-up >[id number]-[id number] CT at 12 mo; if no change, no further follow-up needed.Initial follow-up CT at 6-12 mo, then 18-24 mo if no change. >6-8Initial follow-up CT at 6-12 mo, then 18-24 mo if no change. Initial follow-up CT at 3-6 mo, then 9-12 mo and 24 mo if no change. >8Follow-up CT at 3, 9, 24 mo. Or PET and/or biopsy.Same as for low-risk pts. Reviewed by: Erin Muñoz MD on 01/28/2022 11:07 AM MINE Approved by: Erin Muñoz MD on 01/28/2022 11:07 AM MINE Station ID: [id number]
== END 2022-01-28 09:02 | disposition home or self-care (01) ==
LOC: DI 09:01
PROVIDERS: ATTEND Nurse Practitioner Family
DX: R91.8 Other nonspecific abnormal finding of lung field (principal); I31.3 Pericardial effusion (noninflammatory)

== ENCOUNTER 2022-05-17 13:03 | Emergency (ER) | payer MEDICARE ==
[2022-05-17 13:12] VITALS: BP 141/60
--- NOTE | 2022-05-17 13:15 | ED Physician Documentation ---
PD HPI LOWER EXT INJURY - Stated complaint Stated Complaint: L ANKLE INJ - Chief complaint Chief Complaint: Trauma Ext - History obtained from History obtained from: Patient - History of Present Illness PD HPI LOW EXT INJURY LOCATION: Left, Foot Type of injury: Fall (she was working out and got lightheaded (which has happened before) and started to sit down, but tripped on equipment and fell with twisting of left mid foot. Pain, swelling and bruising after. Unable to walk due to pain.) Where injury occurred: Home Timing - onset: Today Timing - details: Abrupt onset, Still present Improved by: No: Rest Worsened by: Moving, Palpating Associated symptoms: Swelling, Discolored (early bruising dorsal foot). No: Weakness, Numbness Contributing factors: No: Prior ortho surgery Similar symptoms before: Has not had sx before (has had lightheaded with hard working out in past, but not regularly. Has not had foot problems previously.) Recently seen: Not recently seen Review of Systems Constitutional: denies: Fever, Chills Nose: denies: Rhinorrhea / runny nose Throat: denies: Sore throat Cardiac: denies: Chest pain / pressure, Palpitations Respiratory: denies: Dyspnea, Cough GI: denies: Nausea, Vomiting, Diarrhea, Bloody / black stool Skin: denies: Abrasion (s), Laceration (s) Musculoskeletal: reports: Extremity pain (left foot) PD PAST MEDICAL HISTORY - Past Medical History Cardiovascular: None Respiratory: None Neuro: None Endocrine/Autoimmune: None GI: None DIRECTOR BUSINESS DEVELOPMENT: None : None HEENT: None Psych: None Musculoskeletal: Osteoarthritis, Osteoporosis, Chronic back pain Derm: Other - Past Surgical History Past Surgical History: Yes General: Colonoscopy HEENT: Tonsil/Adenoidectomy Derm: Skin cancer surgery - Present Medications Home Medications: Ambulatory Orders Medication Instructions Recorded Confirmed Multivitamin [Multi-Day Vitamins] 1 each PO DAILY 12/27/13 01/03/22 [place]-3/Dha/Epa/Fish Oil [Fish Oil 1 each PO DAILY 12/27/13 01/03/22 1,000 mg Softgel] Meloxicam [Mobic] 15 mg PO DAILY 03/11/20 01/03/22 cycloSPORINE [Restasis] 1 drops EACHEYE BID 03/11/20 01/03/22 Calcium Carbonate/Vitamin D3 1 each PO BID 01/03/22 01/03/22 [Calcium 600-Vit D3 200 Tablet] Gabapentin [Neurontin] 100 mg PO TID 01/03/22 01/03/22 Ipratropium [place] 2 sprays NS DAILY 01/03/22 01/03/22 Aspirin EC [Ecotrin] 81 mg PO DAILY #30 tablet 01/04/22 Clopidogrel [Plavix] 75 mg PO DAILY #21 tablet 01/04/22 - Allergies Allergies/Adverse Reactions: Allergies Allergy/AdvReac Type Severity Reaction Status Date / Time No Known Drug Allergies Allergy Verified 05/17/22 13:12 - Social History Does the pt smoke?: No Smoking Status: Never smoker Does the pt drink ETOH?: Yes Does the pt have substance abuse?: No - Immunizations Immunizations are current?: Yes - POLST Patient has POLST: No PD ED PE NORMAL - Vitals Vital signs reviewed: Yes - General General: Alert and oriented X 3, No acute distress, Well developed/nourished - HEENT HEENT: Atraumatic, Moist mucous membranes - Neck Neck: Supple, no meningeal sign, No bony TTP - Cardiac Cardiac: RRR, No murmur - Respiratory Respiratory: Clear bilaterally - Abdomen Abdomen: Soft, Non tender - Back Back: No spinal TTP - Derm Derm: Normal color, Warm and dry - Extremities Extremities: Other (left foot with swelling, tedner and bruising mid dorsal aspect. No noted deformity. Good color and cap refill, sensation in toes. Wiggles toes okay but causes pain in foot. Ankle itself not tender. Knee not tender. ) - Neuro Neuro: Alert and oriented X 3, No motor deficit, No sensory deficit, Normal speech Results - Vitals Vitals: Oxygen O2 Source Room air PD MEDICAL DECISION MAKING - ED course Complexity details: reviewed results (fractures of proximal MT 1-4 (interesting not 5 as well) with 1-2 into Lisfranc plane but not dislocated. Will need Ortho follow up and possible surgical repair. Splint for now. ), considered differential (foot injury. She is not concerned about the lightheaded working out and feels okay now. Did not pursue it. ), d/w patient Departure - Departure Disposition: 01 Home, Self Care Clinical Impression: Metatarsal fracture Qualifiers: Encounter type: initial encounter Metatarsal bone: unspecified metatarsal Fracture type: closed Fracture alignment: nondisplaced Laterality: left Qualified Code(s): S92.302A - Fracture of unspecified metatarsal bone(s), left foot, initial encounter for closed fracture Clinical Impression: (Ruled Out): Lisfranc dislocation Condition: Stable Record reviewed to determine appropriate education?: Yes Instructions: ED Fx Foot Follow-Up: Lisa Mackay ARNP [Primary Care Provider] - [facility] [Provider Group] Allan Patino DPM [Physician No Access] - Comments: Keep the splint in place to immobilize the foot and ankle. Crutches for nonweightbearing initially. Follow-up with orthopedics or foot surgeon for further evaluation and opinion on ongoing treatment. The appearance is nondisplaced and I would presume just splint/cast boot for 4 to 6 weeks for healing. They may suggest surgical fixation is needed. Following up with the specialist to decide at what point some weightbearing is permitted. You can touch weight-bear if needed for balance at times but try to be off of it. Continue with your usual Continue with usual medications. Plan on Tylenol 4 times daily regularly in addition for the next 7 to 10 days.. Call today or tomorrow for orthopedics follow-up or podiatry if orthopedics not available in a timely fashion. Presume will be follow-up within the next week. Discharge Date/Time: 05/17/22 15:40
[2022-05-17] MEDS ORDERED: ACETAMINOPHEN 325 MG TABLET PO STA (13:25)
--- NOTE | 2022-05-17 13:58 | XRAY Report ---
PROCEDURE: Foot 3 View LT INDICATIONS: Persistent foot, with mid foot pain TECHNIQUE: Three views of the foot were acquired. COMPARISON: None. FINDINGS: Nondisplaced comminuted fractures of the 1st, 2nd, 3rd, and 4th metatarsals through the proximal meta diaphyses. With regard to the 1st and 2nd metatarsal fractures, there is extension into the Lisfranc plane and into the medial tarsometatarsal joint. Mild adjacent soft tissue swelling. IMPRESSION: Nondisplaced comminuted fractures of the 1st, 2nd, 3rd, and 4th metatarsals at the level of the proxi mal metadiaphyses. The 1st and 2nd metatarsal fractures extend into the tarsometatarsal joints and Li sfranc plane. Reviewed by: Louie Morales MD on 05/17/2022 1:57 PM PDT Approved by: Louie Morales MD on 05/17/2022 1:57 PM PDT Station ID: [id number]
== END 2022-05-17 15:40 | disposition home or self-care (01) ==
LOC: ED 13:03
DX: S92.312A Displaced fracture of first metatarsal bone, left foot, initial encounter for closed fracture (principal); S92.325A Nondisplaced fracture of second metatarsal bone, left foot, initial encounter for closed fracture; S92.345A Nondisplaced fracture of fourth metatarsal bone, left foot, initial encounter for closed fracture; S92.335A Nondisplaced fracture of third metatarsal bone, left foot, initial encounter for closed fracture; W01.0XXA Fall on same level from slipping, tripping and stumbling without subsequent striking against object, initial encounter; Y93.79 Activity, other specified sports and athletics; Y92.009 Unspecified place in unspecified non-institutional (private) residence as the place of occurrence of the external cause
CPT/HCPCS: 73630; 99283; 99284; A9270

== ENCOUNTER 2022-05-18 08:18 | Outpatient (CLI) | payer MEDICARE | END 2022-05-18 08:19 | disposition left against medical advice (07) | LOC: EMS 08:18 | DX: Z03.89 Encounter for observation for other suspected diseases and conditions ruled out (principal) ==

== ENCOUNTER 2022-05-25 11:30 | Outpatient (CLI) | payer MEDICARE ==
--- NOTE | 2022-05-25 15:41 | XRAY Report ---
PROCEDURE: Lumbar Spine 2 View INDICATIONS: LOW BACK PAIN TECHNIQUE: 3 views of the lumbar spine were acquired. COMPARISON: None. FINDINGS: Bones: Severe degenerative disc disease at L1-2 and L2-3 and remote compression fracture with 50% ant erior height loss of T12. From T12 through L2 there is focal leftward curvature of the lumbar spine. L2 is laterally displaced to the left with angulation of 20 degrees due to underlying degenerative ch anges. Soft tissues: Overlying bowel gas pattern is normal. No suspicious soft tissue calcifications. IMPRESSION: 50% compression fracture of T12 with severe degenerative disc disease at L1-2 and L2-3 re sulting in misalignment and focal leftward curvature of the thoracolumbar spine. Reviewed by: Kenrick Mejia on 05/25/2022 3:40 PM PDT Approved by: Kenrick Mejia on 05/25/2022 3:40 PM PDT Station ID: [id number]
== END 2022-05-25 11:31 | disposition home or self-care (01) ==
LOC: DI 11:30
PROVIDERS: ATTEND Nurse Practitioner Family
DX: M48.54XA Collapsed vertebra, not elsewhere classified, thoracic region, initial encounter for fracture (principal); M51.36 Other intervertebral disc degeneration, lumbar region

== ENCOUNTER 2023-12-25 09:45 | Outpatient (CLI) | payer MEDICARE ==
--- NOTE | 2023-12-25 13:12 | DEXA Report ---
PROCEDURE: Dexa Spine and/or Hip INDICATIONS: OSTEOPOROSIS TECHNIQUE: Dual energy x-ray absorptiometry (DXA) was performed on a Octapoly System. Regions measur ed are the AP Spine, femoral neck, and if needed forearm. COMPARISON: 09/22/2021 FINDINGS: Lumbar Spine: Bone Mineral Density: 1.024 g/cm/cm,T score: -1.3, osteopenia. Change from previous 0.7% Left Femoral Neck: Bone Mineral Density: 0.747 g/cm/cm, T score: -2.1, osteopenia. Left Hip: Bone Mineral Density: 0.723 g/cm/cm,T score: -2.3, osteopenia. Change from previous -2.0% (T score greater or equal to -1.0: NORMAL) (T score from -1.1 to -2.4: OSTEOPENIA) (T score less than or equal to -2.5 to: OSTEOPOROSIS) Impression: By WHO criteria, this patient has low bone density (osteopenia). No statistically significant change in bone mineral density compared to prior exam. Patients with diagnosis of osteoporosis or osteopenia should have regular bone mineral density assess ment. For those eligible for Medicare, routine testing is allowed once every 2 years. Testing frequ ency can be increased for patients who have rapidly progressing disease or for those who are receivin g medical therapy to restore bone mass. Reviewed by: Hermelinda Walters MD on 12/25/2023 1:11 PM PDT Approved by: Hermelinda Walters MD on 12/25/2023 1:11 PM PDT Station ID: [id number]
== END 2023-12-25 09:46 | disposition home or self-care (01) ==
LOC: DI 09:45
PROVIDERS: ATTEND Nurse Practitioner Family
DX: M85.89 Other specified disorders of bone density and structure, multiple sites (principal)

== ENCOUNTER 2024-01-14 12:23 | Emergency (ER) | payer MEDICARE ==
--- NOTE | 2024-01-14 12:42 | ED Physician Documentation ---
PD HPI FOCAL NEURO - Stated complaint Stated Complaint: TWITCHY BODY - Chief complaint Chief Complaint: Neuro - History obtained from History obtained from: Patient - Additional information Additional information: She has a history of stroke, chronic back pain. She is under a lot of stress. Her is in the hospital and getting out tomorrow probably after a foot amputation to go to a SNF tomorrow. She woke this morning with new onset tremors. It was in both hands. For time it was pretty bad, she had to hold her coffee cup with 2 hands. She did not drink more coffee than normal. She feels somewhat better now. There is no associated focal weakness, but she does feel mildly generally weak. No headache with it. PD PAST MEDICAL HISTORY - Past Medical History Past Medical History: Yes Cardiovascular: None Respiratory: None Neuro: None Endocrine/Autoimmune: None GI: None FAN BALANCER: None : None HEENT: None Psych: None Musculoskeletal: Osteoarthritis, Osteoporosis, Chronic back pain Derm: Other - Past Surgical History Past Surgical History: Yes General: Colonoscopy HEENT: Tonsil/Adenoidectomy Derm: Skin cancer surgery - Present Medications Home Medications: Ambulatory Orders Medication Instructions Recorded Confirmed Multivitamin [Multi-Day Vitamins] 1 each PO DAILY 12/27/13 01/03/22 [place]-3/Dha/Epa/Fish Oil [Fish Oil 1 each PO DAILY 12/27/13 01/03/22 1,000 mg Softgel] Meloxicam [Mobic] 15 mg PO DAILY 03/11/20 01/03/22 cycloSPORINE [Restasis] 1 drops EACHEYE BID 03/11/20 01/03/22 Calcium Carbonate/Vitamin D3 1 each PO BID 01/03/22 01/03/22 [Calcium 600-Vit D3 200 Tablet] Gabapentin [Neurontin] 100 mg PO TID 01/03/22 01/03/22 Ipratropium [place] 2 sprays NS DAILY 01/03/22 01/03/22 Aspirin EC [Ecotrin] 81 mg PO DAILY #30 tablet 01/04/22 Clopidogrel [Plavix] 75 mg PO DAILY #21 tablet 01/04/22 Amox/Clav 875/125 [Augmentin] 1 each PO Q12H #14 tablet 01/14/24 - Allergies Allergies/Adverse Reactions: Allergies Allergy/AdvReac Type Severity Reaction Status Date / Time No Known Drug Allergies Allergy Verified 01/14/24 12:27 - Social History Does the pt smoke?: No Smoking Status: Never smoker Does the pt drink ETOH?: Yes Does the pt have substance abuse?: No - Immunizations Immunizations are current?: Yes - POLST Patient has POLST: No PD ED PE NORMAL - Vitals Vital signs reviewed: Yes - General General: Alert and oriented X 3, No acute distress - HEENT HEENT: PERRL, EOMI - Neck Neck: Supple, no meningeal sign, No bony TTP - Neuro Neuro: Alert and oriented X 3, merchandising lead 2-12 intact, No motor deficit, No sensory deficit, Normal speech, Other (No appreciable tremor of the hands at this time.) Eye Opening: Spontaneous Motor: Obeys Commands Verbal: Oriented GCS Score: 15 - Psych Psych: Normal mood, Normal affect Results - Vitals Vitals: Vital Signs - 24 hr 01/14/24 12:27 Temperature 36.8 C Heart Rate 62 Respiratory 16 Rate Blood Pressure 139/62 H O2 Saturation 100 Oxygen O2 Source Room air - Labs Labs: Laboratory Tests 01/14/24 01/14/24 01/14/24 12:47 12:47 13:06 WBC 26.8 H RBC 3.53 L Hgb 11.7 L Hct 36.5 L MCV 103.4 H MCH 33.1 H MCHC 32.1 RDW 12.0 Plt Count 468 H MPV 9.6 Neut # (Auto) Not Reportable Lymph # (Auto) Not Reportable [place] # (Auto) Not Reportable Eos # (Auto) Not Reportable Baso # (Auto) Not Reportable Absolute Nucleated RBC Not Reportable Total Counted 100 Band Neuts % (Manual) 8 Abnorm Lymph % (Manual) 0 Nucleated RBC % Not Reportable Neutrophils # (Manual) 24.4 H Lymphocytes # (Manual) 1.6 Monocytes # (Manual) 0.8 Eosinophils # (Manual) 0.0 Basophils # (Manual) 0.0 Differential Comment MANUAL DIFFERENTIAL WBC Morphology NORMAL APPEARANCE Platelet Estimate NORMAL (130-450,000) Platelet Morphology NORMAL APPEARANCE RBC Morph Micro Appear NORMAL APPEARANCE Sodium 137 Potassium 4.2 Chloride 101 Carbon Dioxide 28 Anion Gap 8.0 BUN 27 H Creatinine 1.1 Estimated GFR (MDRD) 48 L Glucose 110 H Lactic Acid Calcium 10.3 Magnesium 1.8 Total Bilirubin 0.6 AST 32 ALT 25 Alkaline Phosphatase 82 Total Protein 7.0 Albumin 4.2 Globulin 2.8 Albumin/Globulin Ratio 1.5 TSH 1.29 Urine Color YELLOW Urine Clarity CLEAR Urine pH 7.0 Ur Specific [place] 1.010 Urine Protein NEGATIVE Urine Glucose (UA) NEGATIVE Urine Ketones NEGATIVE Urine Occult Blood NEGATIVE Urine Nitrite NEGATIVE Urine Bilirubin NEGATIVE Urine Urobilinogen 0.2 (NORMAL) Ur Leukocyte Esterase NEGATIVE Ur Microscopic Review NOT INDICATED Urine Culture Comments NOT INDICATED 01/14/24 01/14/24 14:20 14:20 WBC RBC Hgb Hct MCV MCH MCHC RDW Plt Count MPV Neut # (Auto) Lymph # (Auto) [place] # (Auto) Eos # (Auto) Baso # (Auto) Absolute Nucleated RBC Total Counted Band Neuts % (Manual) Abnorm Lymph % (Manual) Nucleated RBC % Neutrophils # (Manual) Lymphocytes # (Manual) Monocytes # (Manual) Eosinophils # (Manual) Basophils # (Manual) Differential Comment WBC Morphology Platelet Estimate Platelet Morphology RBC Morph Micro Appear Sodium 137 Potassium 4.1 Chloride 103 Carbon Dioxide 29 Anion Gap 5.0 L BUN 26 H Creatinine 1.1 Estimated GFR (MDRD) 48 L Glucose 104 Lactic Acid 0.5 Calcium 9.8 Magnesium Total Bilirubin 0.6 AST 27 ALT 22 Alkaline Phosphatase 77 Total Protein 5.9 L Albumin 3.7 Globulin 2.2 Albumin/Globulin Ratio 1.7 TSH Urine Color Urine Clarity Urine pH Ur Specific [place] Urine Protein Urine Glucose (UA) Urine Ketones Urine Occult Blood Urine Nitrite Urine Bilirubin Urine Urobilinogen Ur Leukocyte Esterase Ur Microscopic Review Urine Culture Comments - Rads (name of study) head ct Relevant Findings:: Final report received, EMP independent interpretation of test PD Medical Decision Making - ED course ED course: She presents with nonspecific shakiness. She is afebrile and well-appearing and says she is already improved over what she was feeling this morning. Differential diagnosis would include excessive stimulant use although she said she only had her usual dose of caffeine this morning. Thyroid issues considered, but her TSH was normal. Anxiety is definitely a possibility and she has risk factors with her being in the hospital. Doubt acute intracranial process and head CT was unremarkable. Really the only remarkable thing was her white blood cell count of 26,000. After this was noted I did recheck her temperature and was 36.5 and she remained very well-appearing and nontoxic. Given the mild thrombocytosis, this could be more of a chronic problem, last CBC was about 2 years ago on her and was normal at that time. I will obtain blood cultures and a lactate, but she looks so well that I think she could go home if the lactate is normal. I will give her some oral antibiotics pending the blood cultures. Departure - Departure Disposition: Home, Self Care Clinical Impression: Coarse tremors Leukocytosis Qualifiers: Leukocytosis type: unspecified Qualified Code(s): D72.829 - Elevated white blood cell count, unspecified Condition: Good Record reviewed to determine appropriate education?: Yes Prescriptions: Amox/Clav 875/125 [Augmentin] 1 each PO Q12H #14 tablet Comments: The cause of your shaking is not quite clear. The only abnormal results of sig nificance was your white blood cell count which was 26.8 thousand. It is unclear if this is acute or chronic. The last labs we have on you were almost 2 years ago, at that point they were normal though. Given that there are no signs or symptoms of infection per se and you did not have a fever I think you can safely go home but recognize we are doing blood cultures and will need you to come back urgently if those are positive. If they are not positive we will call you and you should finish out the antibiotics, but at a minimum you should have blood work rechecked in a few days with your primary care physician to see if your white blood cell count is improving or staying the same. If it does not improve they will probably want you to follow-up with a learning coach oncologist to make sure that it is not a primary blood disorder. Return if worse. Call your doctor for next available follow-up visit, ideally in 2 to 3 days. Forms: PCP List
[2024-01-14 12:52] LABS: BASOPHILS % (AUTO) 0.4 %; EOSINOPHILS % (AUTO) 0.4 %; HCT - HEMATOCRIT 36.5 % (37.0-47.0); HGB - HEMOGLOBIN 11.7 g/dL (12.0-16.0); MEAN CORPUSCULAR HEMOGLOBIN 33.1 pg (27.0-31.0); MEAN CORPUSCULAR HGB CONC 32.1 g/dL (32.0-36.0); MEAN CORPUSCULAR VOLUME 103.4 fL (81.0-99.0); MEAN PLATELET VOLUME 9.6 fL (7.9-10.8); MONOCYTES % (AUTO) 4.6 %; PLT - PLATELET COUNT 468 10^3/uL (130-450); RED BLOOD COUNT 3.53 10^6/uL (4.20-5.40); WHITE BLOOD COUNT 26.8 x10^3/uL (4.8-10.8)
[2024-01-14 12:55] LABS: ABNORMAL LYMPHS % (MANUAL) 0 %
[2024-01-14 13:01] LABS: MAGNESIUM 1.8 mg/dL (1.7-2.3)
[2024-01-14 13:07] LABS: ALBUMIN 4.2 g/dL (3.2-5.5); ALBUMIN/GLOBULIN RATIO 1.5 (1.0-2.2); BILIRUBIN,TOTAL 0.6 mg/dL (0.2-1.0); CALCIUM 10.3 mg/dL (8.5-10.3); CREATININE 1.1 mg/dL (0.6-1.3); POTASSIUM 4.2 mmol/L (3.5-4.5)
[2024-01-14 13:12] LABS: BILIRUBIN,URINE NEGATIVE (NEGATIVE); GLUCOSE, URINE (UA) NEGATIVE (NEGATIVE); KETONES,URINE (UA) NEGATIVE (NEGATIVE); LEUKOCYTE ESTERASE, URINE NEGATIVE (NEGATIVE); NITRITE,URINE NEGATIVE (NEGATIVE); OCCULT BLOOD,URINE NEGATIVE (NEGATIVE); PROTEIN,URINE NEGATIVE (NEGATIVE); UROBILINOGEN,URINE 0.2 (NORMAL) E.U./dL (NORMAL)
[2024-01-14 13:13] LABS: CLARITY,URINE CLEAR (CLEAR)
[2024-01-14 13:18] LABS: BAND NEUTROPHILS % (MANUAL) 8 %; LYMPHOCYTES # (MANUAL) 1.6 10^3/uL (1.5-3.5); LYMPHOCYTES % (MANUAL) 6 %; MONOCYTES # (MANUAL) 0.8 10^3/uL (0.0-1.0); NEUTROPHILS # (MANUAL) 24.4 10^3/uL (1.5-6.6)
[2024-01-14 13:19] LABS: DIFFERENTIAL COMMENT MANUAL DIFFERENTIAL; PLATELET ESTIMATE, MANUAL NORMAL (130-450,000) (NORMAL); PLATELET MORPHOLOGY NORMAL APPEARANCE (NORMAL); RBC MORPHOLOGY (MULTIPLE) NORMAL APPEARANCE (NORMAL); WBC MORPHOLOGY (MULTIPLE) NORMAL APPEARANCE (NORMAL)
[2024-01-14 13:21] LABS: THYROID STIMULATING HORMONE 1.29 uIU/mL (0.34-5.60)
--- NOTE | 2024-01-14 14:08 | CT Report ---
PROCEDURE: Head WO INDICATIONS: tremor TECHNIQUE: Noncontrast 4.5 mm thick angled axial sections acquired from the foramen magnum to the vertex. For r adiation dose reduction, the following was used: automated exposure control, adjustment of mA and/or kV according to patient size. COMPARISON: 03/28/2022, 01/03/2022 FINDINGS: Image quality: Excellent. CSF spaces: Basal cisterns are patent. No extra-axial fluid collections. Ventricles are normal in size and shape. Brain: No midline shift. No intracranial masses or hemorrhage. White-white matter interface is norm al. Skull and face: Calvarium and visualized facial bones are intact, without suspicious lesions. Sinuses: Visualized sinuses and mastoids are clear. IMPRESSION: No acute intracranial pathology. Reviewed by: Derrick Mota MD on 01/14/2024 2:06 PM PDT Approved by: Derrick Mota MD on 01/14/2024 2:06 PM PDT Station ID: [id number]
[2024-01-14] MEDS ORDERED: HYDROmorphone 1 MG/ML CARPUJECT IVP STA (14:09)
[2024-01-14] MEDS: AMOX/CLAV 875 MG/125 MG TABLET PO STA (14:18)
[2024-01-14 14:51] LABS: ALBUMIN 3.7 g/dL (3.2-5.5); ALBUMIN/GLOBULIN RATIO 1.7 (1.0-2.2); BILIRUBIN,TOTAL 0.6 mg/dL (0.2-1.0); CALCIUM 9.8 mg/dL (8.5-10.3); CREATININE 1.1 mg/dL (0.6-1.3); POTASSIUM 4.1 mmol/L (3.5-4.5); TOTAL PROTEIN 5.9 g/dL (6.4-8.9)
[2024-01-14 15:18] VITALS: BP 153/87; O2SAT 99
== END 2024-01-14 15:09 | disposition home or self-care (01) ==
LOC: ED 12:23
DX: G25.2 Other specified forms of tremor (principal); D72.829 Elevated white blood cell count, unspecified; Z79.02 Long term (current) use of antithrombotics/antiplatelets
CPT/HCPCS: 36415; 70450; 80053; 81003; 83605; 83735; 84443; 85025; 87040; 99284; A9270; 81001; 87086

== ENCOUNTER 2024-02-25 11:54 | Outpatient (CLI) | payer MEDICARE | END 2024-02-25 23:59 | disposition left against medical advice (07) | LOC: EMS 11:54 | DX: R53.83 Other fatigue (principal); R45.89 Other symptoms and signs involving emotional state; Z63.4 Disappearance and death of family member ==

== ENCOUNTER 2024-04-25 14:37 | Outpatient (CLI) | payer MEDICARE | END 2024-04-25 23:59 | disposition critical access hospital (66) | LOC: EMS 14:37 | DX: R53.81 Other malaise (principal); R50.9 Fever, unspecified; R05.9 Cough, unspecified; Z20.822 Contact with and (suspected) exposure to COVID-19 | CPT/HCPCS: A0425; A0427 ==

== ENCOUNTER 2024-04-25 15:06 | Observation (INO) | payer MEDICARE ==
--- NOTE | 2024-04-25 15:15 | ED Physician Documentation ---
PD HPI URI - Stated complaint Stated Complaint: LETHARGIC - History obtained from History obtained from: Patient, EMS (EMS found the patient responsive but sluggish and confused to time. They initially noted her sats at 88% and blood pressure 89 systolic which improved with IV fluids to 104/52 on arrival here.) - History of Present Illness Timing - onset: How many days ago (2) Timing duration: Days (2) Timing details: Abrupt onset, Still present Associated symptoms: Fever, Sinus pain, Dry cough. No: Sore throat Contributing factors: Sick contact Review of Systems Constitutional: reports: Fever, Chills, Myalgias, Fatigue Nose: reports: Congestion. denies: Rhinorrhea / runny nose Throat: denies: Sore throat Cardiac: denies: Chest pain / pressure Respiratory: reports: Dyspnea, Cough GI: reports: Nausea. denies: Abdominal Pain, Vomiting, Diarrhea Skin: denies: Rash Neurologic: reports: Generalized weakness, Confused. denies: Focal weakness, Headache, Head injury PD PAST MEDICAL HISTORY - Past Medical History Cardiovascular: None Respiratory: None Neuro: None Endocrine/Autoimmune: None GI: None AIR DEFENSE SPECIALIST: None : None HEENT: None Psych: None Musculoskeletal: Osteoarthritis, Osteoporosis, Chronic back pain Derm: Other - Past Surgical History Past Surgical History: Yes General: Colonoscopy HEENT: Tonsil/Adenoidectomy Derm: Skin cancer surgery - Present Medications Home Medications: Ambulatory Orders Medication Instructions Recorded Confirmed Multivitamin [Multi-Day Vitamins] 1 each PO DAILY 12/27/13 01/03/22 [place]-3/Dha/Epa/Fish Oil [Fish Oil 1 each PO DAILY 12/27/13 01/03/22 1,000 mg Softgel] Meloxicam [Mobic] 15 mg PO DAILY 03/11/20 01/03/22 cycloSPORINE [Restasis] 1 drops EACHEYE BID 03/11/20 01/03/22 Calcium Carbonate/Vitamin D3 1 each PO BID 01/03/22 01/03/22 [Calcium 600-Vit D3 200 Tablet] Gabapentin [Neurontin] 100 mg PO TID 01/03/22 01/03/22 Ipratropium [place] 2 sprays NS DAILY 01/03/22 01/03/22 Aspirin EC [Ecotrin] 81 mg PO DAILY #30 tablet 01/04/22 Clopidogrel [Plavix] 75 mg PO DAILY #21 tablet 01/04/22 Amox/Clav 875/125 [Augmentin] 1 each PO Q12H #14 tablet 01/14/24 - Allergies Allergies/Adverse Reactions: Allergies Allergy/AdvReac Type Severity Reaction Status Date / Time No Known Drug Allergies Allergy Verified 04/25/24 15:15 - Social History Does the pt smoke?: No Smoking Status: Never smoker Does the pt drink ETOH?: Yes Does the pt have substance abuse?: No - Immunizations Immunizations are current?: Yes - POLST Patient has POLST: No PD ED PE NORMAL - General General: Alert and oriented X 3 (oriented but sluggish to answer and seems a bit confused, looking around before answering at times. ), No acute distress, Well developed/nourished - HEENT HEENT: Ears normal, Pharynx benign. No: Moist mucous membranes - Neck Neck: Supple, no meningeal sign, No adenopathy - Cardiac Cardiac: RRR, No murmur - Respiratory Respiratory: No respiratory distress. No: Clear bilaterally (mild exp wheezing noted diffusely. No coarse sounds. ) - Abdomen Abdomen: Soft, Non tender - Derm Derm: Normal color, Warm and dry - Extremities Extremities: No tenderness to palpate, Normal ROM s pain, No edema, No calf tenderness / cord - Neuro Neuro: Alert and oriented X 3, No motor deficit, No sensory deficit, Normal speech Eye Opening: Spontaneous Motor: Obeys Commands Verbal: Confused GCS Score: 14 Results - Vitals Vitals: Vital Signs - 24 hr 04/25/24 04/25/24 15:11 15:15 Temperature 38.1 C H Heart Rate 95 97 Respiratory 18 80 H Rate Blood Pressure 104/52 L O2 Saturation 91 L Oxygen O2 Source Room air - Labs Labs: Laboratory Tests 04/25/24 04/25/24 04/25/24 15:09 15:12 15:12 WBC 20.2 H RBC 3.44 L Hgb 11.2 L Hct 34.4 L MCV 100.0 H MCH 32.6 H MCHC 32.6 RDW 13.0 Plt Count 296 MPV 10.3 Neut # (Auto) Not Reportable Lymph # (Auto) Not Reportable [place] # (Auto) Not Reportable Eos # (Auto) Not Reportable Baso # (Auto) Not Reportable Absolute Nucleated RBC Not Reportable Total Counted 100 Band Neuts % (Manual) 14 H Abnorm Lymph % (Manual) 0 Metamyelocytes % 1 H Nucleated RBC % Not Reportable Neutrophils # (Manual) 18.0 H Lymphocytes # (Manual) 0.2 L Monocytes # (Manual) 1.8 H Eosinophils # (Manual) 0.0 Basophils # (Manual) 0.0 Differential Comment MANUAL DIFFERENTIAL Manual Slide Review Indicated Platelet Estimate NORMAL (130-450,000) Platelet Morphology NORMAL APPEARANCE RBC Morph Micro Appear NORMAL APPEARANCE Sodium 135 Potassium 3.6 Chloride 102 Carbon Dioxide 26 Anion Gap 7.0 BUN 25 H Creatinine 1.2 Estimated GFR (MDRD) 44 L Glucose 152 H Lactic Acid Calcium 8.6 Magnesium 1.6 L Total Bilirubin 1.3 H AST 133 H ALT 135 H Alkaline Phosphatase 59 Total Creatine Kinase 225 H Total Protein 5.1 L Albumin 3.4 Globulin 1.7 L Albumin/Globulin Ratio 2.0 Lipase 13 Nasal Adenovirus (PCR) NOT DETECTED Nasal B. parapertussis DNA (PCR) NOT DETECTED Nasal Coronavir 229E PCR NOT DETECTED Nasal Coronavir HKU1 PCR NOT DETECTED Nasal Coronavir NL63 PCR NOT DETECTED Nasal Coronavir OC43 PCR NOT DETECTED Nasal Enterovir/Rhinovir PCR NOT DETECTED Nasal Influenza B PCR NOT DETECTED Nasal Influenza A PCR NOT DETECTED Nasal Parainfluen 1 PCR NOT DETECTED Nasal Parainfluen 2 PCR NOT DETECTED Nasal Parainfluen 3 PCR NOT DETECTED Nasal Parainfluen 4 PCR NOT DETECTED Nasal RSV (PCR) NOT DETECTED Nasal B.pertussis DNA PCR NOT DETECTED Nasal C.pneumoniae (PCR) NOT DETECTED [place] Human Metapneumo PCR NOT DETECTED Nasal M.pneumoniae (PCR) NOT DETECTED Nasal SARS-CoV-2 (PCR) NOT DETECTED 04/25/24 15:12 WBC RBC Hgb Hct MCV MCH MCHC RDW Plt Count MPV Neut # (Auto) Lymph # (Auto) [place] # (Auto) Eos # (Auto) Baso # (Auto) Absolute Nucleated RBC Total Counted Band Neuts % (Manual) Abnorm Lymph % (Manual) Metamyelocytes % Nucleated RBC % Neutrophils # (Manual) Lymphocytes # (Manual) Monocytes # (Manual) Eosinophils # (Manual) Basophils # (Manual) Differential Comment Manual Slide Review Platelet Estimate Platelet Morphology RBC Morph Micro Appear Sodium Potassium Chloride Carbon Dioxide Anion Gap BUN Creatinine Estimated GFR (MDRD) Glucose Lactic Acid 1.2 Calcium Magnesium Total Bilirubin AST ALT Alkaline Phosphatase Total Creatine Kinase Total Protein Albumin Globulin Albumin/Globulin Ratio Lipase Nasal Adenovirus (PCR) Nasal B. parapertussis DNA (PCR) Nasal Coronavir 229E PCR Nasal Coronavir HKU1 PCR Nasal Coronavir NL63 PCR Nasal Coronavir OC43 PCR Nasal Enterovir/Rhinovir PCR Nasal Influenza B PCR Nasal Influenza A PCR Nasal Parainfluen 1 PCR Nasal Parainfluen 2 PCR Nasal Parainfluen 3 PCR Nasal Parainfluen 4 PCR Nasal RSV (PCR) Nasal B.pertussis DNA PCR Nasal C.pneumoniae (PCR) [place] Human Metapneumo PCR Nasal M.pneumoniae (PCR) Nasal SARS-CoV-2 (PCR) PD Medical Decision Making - ED course Complexity details: reviewed results, re-evaluated patient (She has improved color to her and less sluggish for bonding to questions. Still general wea kness. Oxygenation 90 to 92% on room air. BP is normotensive at 104 systolic.), considered differential (The patient started being ill just 1 to 2 days ago with general malaise, fevers, nausea, cough and some dyspnea. She was feeling weak enough to be unable to get off the sofa. Denies falling. Encountered by neighbor who called for EMS.), d/w patient Reviewed Lab Results: The patient has an elevated white count significantly with 14% bandemia and left shift. Her lactic acid level is in the normal range at 1.2. However she does have fever and was initially hypotensive below 90 systolic which did improve with IV fluids. She was 88 to 90% for EMS on their arrival. Here she is 90 to 92% on room air. She does have some coarse sounds on both sides with some expiratory wheezes. No accessory muscle use. She does have mildly elevated LFTs without any abdominal tenderness suggesting multi system involvement. It does not seem like gallbladder. Chest x-ray showing apparent infiltrates. Her respiratory viral panel is negative. Consideration would be too early to be positive though with the degree of her symptoms and having been ill for 2+ days, I would find it unusual to not be positive on the viral illnesses such as COVID. Therefore this has been more concern for a bacterial pneumonia. Her curb 65 scoring is 4 based on age mentation initial blood pressure and BUN over 25. Her PSI score is 117. Both of these indicators would suggest hospitalization is appropriate. I will talk with the hospitalist about this. I did initiate IV antibiotics for concern of bacterial pneumonia. Reassessment after IV fluids and Toradol and Tylenol is she does seem more lucid though still slightly sluggish to respond she has somewhat improved color. She still has very weak energy symmetrically for handgrips etc. ED course: The patient found out she did better on her friend 4 to 5 days ago who became positive with COVID. The patient herself is now ill for the last couple of days with general weakness, feeling confused, cough and wheeze. She felt weak enough to be unable to get off the sofa today. A neighbor came by to check on her and saw her on the sofa and not get up to open the door. She called a realtor who has a staples who went in to check on her and called EMS due to confusion and pallor. EMS found the patient to be mildly hypotensive with blood pressure in the 90s. O2 sats at 90%. Temperature 101. She was interactive but sluggish to respond. IV fluids en route are helping some. The patient denies blood sugar irregularities or diabetes. No heart or lung problems underlying. She does not take blood pressure medicine. The patient arriving here in the ER has a just normotensive blood pressure of 10 4 systolic. Heart rate is nontachycardic. O2 sat 90 to 91% on room air. She has a 38.3 temperature. She is able to answer questions but is a bit sluggish and seems confused. Symmetric movement but again generally weak. No focality to the weakness. Denies headache. There is no neck stiffness noted. We will draw some fluids or correction and draw some bloods and look in particular at the white count and lactic acid as well as electrolytes and any changes in kidney function. Will do a respiratory panel test looking for COVID amongst other viral illnesses. Chest x-ray to evaluate for nonviral type processes such as pneumonia. Will give Tylenol and Toradol for fevers and aches. Departure - Departure Disposition: 66 [facility] DC/Xfer Clinical Impression: Generalized weakness, Transient hypotension, Confusion, SIRS (systemic inflammatory response syndrome) Pneumonia Qualifiers: Pneumonia type: due to unspecified organism Laterality: bilateral Lung location: unspecified part of lung Qualified Code(s): J18.9 - Pneumonia, unspecified organism Leukocytosis Qualifiers: Leukocytosis type: bandemia Qualified Code(s): D72.825 - Bandemia Condition: Stable Record reviewed to determine appropriate education?: Yes
[2024-04-25 15:24] LABS: BASOPHILS % (AUTO) 0.2 %; EOSINOPHILS % (AUTO) 1.6 %; HCT - HEMATOCRIT 34.4 % (37.0-47.0); HGB - HEMOGLOBIN 11.2 g/dL (12.0-16.0); LYMPHOCYTES % (AUTO) 2.1 %; MEAN CORPUSCULAR HEMOGLOBIN 32.6 pg (27.0-31.0); MEAN CORPUSCULAR HGB CONC 32.6 g/dL (32.0-36.0); MEAN PLATELET VOLUME 10.3 fL (7.9-10.8); MONOCYTES % (AUTO) 8.9 %; NEUTROPHILS % (AUTO) 86.8 %; PLT - PLATELET COUNT 296 10^3/uL (130-450); RED BLOOD COUNT 3.44 10^6/uL (4.20-5.40); WHITE BLOOD COUNT 20.2 x10^3/uL (4.8-10.8)
[2024-04-25 15:26] LABS: SLIDE REVIEW? Indicated
[2024-04-25 15:27] LABS: ABNORMAL LYMPHS % (MANUAL) 0 %
[2024-04-25 15:31] LABS: MAGNESIUM 1.6 mg/dL (1.7-2.3)
[2024-04-25] MEDS: KETOROLAC 15 MG/ML VIAL IVP STA (15:36)
[2024-04-25] MEDS: SODIUM CHLORIDE 0.9% 1,000 ML IV STA (15:36)
[2024-04-25 15:37] LABS: ALBUMIN 3.4 g/dL (3.2-5.5); BILIRUBIN,TOTAL 1.3 mg/dL (0.2-1.0); CALCIUM 8.6 mg/dL (8.5-10.3); CREATININE 1.2 mg/dL (0.6-1.3); POTASSIUM 3.6 mmol/L (3.5-4.5); TOTAL PROTEIN 5.1 g/dL (6.4-8.9)
[2024-04-25] MEDS: ACETAMINOPHEN 325 MG TABLET PO STA (15:47)
[2024-04-25 15:50] LABS: BAND NEUTROPHILS % (MANUAL) 14 %; LYMPHOCYTES # (MANUAL) 0.2 10^3/uL (1.5-3.5); LYMPHOCYTES % (MANUAL) 1 %; METAMYELOCYTES % (MANUAL) 1 %; MONOCYTES # (MANUAL) 1.8 10^3/uL (0.0-1.0)
[2024-04-25 15:51] LABS: PLATELET MORPHOLOGY NORMAL APPEARANCE (NORMAL); RBC MORPHOLOGY (MULTIPLE) NORMAL APPEARANCE (NORMAL)
[2024-04-25 15:52] LABS: DIFFERENTIAL COMMENT MANUAL DIFFERENTIAL; PLATELET ESTIMATE, MANUAL NORMAL (130-450,000) (NORMAL)
[2024-04-25 16:09] LABS: B. PARAPERTUSSIS- RESP PCR PAN NOT DETECTED; B. PERTUSSIS- RESP PCR PANEL NOT DETECTED; C. PNEUMONIAE- RESP PCR PANEL NOT DETECTED; CORONAVIRUS 229E-RESP PCR NOT DETECTED; CORONAVIRUS HKU1-RESP PCR NOT DETECTED; CORONAVIRUS NL63-RESP PCR NOT DETECTED; CORONAVIRUS OC43-RESP PCR NOT DETECTED; HUMAN METAPNEUMOVIRUS NOT DETECTED; INFLUENZA A- RESP PCR PANEL NOT DETECTED; INFLUENZA B - RESP PCR PANEL NOT DETECTED; M. PNEUMONIAE- RESP PCR PANEL NOT DETECTED; PARAINFLUENZA VIRUS 1 NOT DETECTED; PARAINFLUENZA VIRUS 2 NOT DETECTED; PARAINFLUENZA VIRUS 3 NOT DETECTED; PARAINFLUENZA VIRUS 4 NOT DETECTED; RHINOVIRUS/ENTEROVIRUS NOT DETECTED; RSV- RESP PCR PANEL NOT DETECTED; SARS-CoV-2 -RESP PCR PANEL NOT DETECTED
--- NOTE | 2024-04-25 16:27 | XRAY Report ---
PROCEDURE: Chest 1V INDICATIONS: cough/dyspnea TECHNIQUE: One view of the chest was acquired. COMPARISON: 01/04/2022 FINDINGS: Surgical changes and devices: None. Lungs and pleura: Moderate midlung opacities and mild lower lung opacities. No drainable effusions. Mediastinum: Normal heart size Bones and chest wall: Degenerative changes IMPRESSION: Moderate midlung and mild lower lung opacities, probably infectious/inflammatory given provided histo ry. Surveillance imaging is recommended to exclude underlying mass. Reviewed by: Xu Adams MD on 04/25/2024 4:26 PM PDT Approved by: Xu Adams MD on 04/25/2024 4:26 PM PDT Station ID: [id number]
[2024-04-25] MEDS: ALBUTEROL 1 PUFF INH STA (16:28)
[2024-04-25] MEDS: cefTRIAXone 1 GM in SODIUM CHLORIDE 0.9% MINIBAG 100 ML IV STA (16:51)
[2024-04-25] MEDS: AZITHROMYCIN INJ 500 MG in SODIUM CHLORIDE 0.9% 250 ML IV STA (17:16)
[2024-04-25] MEDS: cefTRIAXone 1 GM VIAL IVP STA (17:22)
[2024-04-25] MEDS ORDERED: SODIUM CHLORIDE FLUSH 0.9% 10 ML SYRINGE IVP PRN (17:46)
[2024-04-25] MEDS ORDERED: ONDANSETRON ODT 4 MG TABLET TL PRN (17:46)
[2024-04-25] MEDS ORDERED: HYDROcod/ACETAM 5/325 MG TABLET PO PRN (17:46)
[2024-04-25] MEDS ORDERED: IPRATROPIUM/ALBUTEROL 3 ML NEB INH PRN (17:51)
--- NOTE | 2024-04-25 18:11 | HISTORY & PHYSICAL EXAMINATION ---
Chief Complaint - Chief Complaint Chief Complaint: cough and weakness History of Present Illness - Admitted From Admitted From:: ED - History Obtained From Records Reviewed: ED - History of Present Illness HPI Comment/Other: 79-year-old female who presented to the emergency department via EMS. She has had a recent positive COVID contact and was sick at home with upper respiratory symptoms for 2 to 3 days. She has been having fever cough and sore throat she is also having decreased appetite. When EMS arrived at her house her oxygen saturation was 88% on room air with a blood pressure systolic in the 80s. Since arrival in the emergency department her blood pressure was 104/70 on arrival with an O2 sat between 90 and 92% on room air, reported to me, but now is requ iring 1.5L via [place]. her Tmax is 38.3. She is also having some confusion and slow mentation. She denies any history of chronic lung disease she denies any history of heart disease she is overall healthy takes only gabapentin for chronic pain and a "bad back". Also takes aspirin for history of CVA with some chronic left-sided weakness. She does not smoke cigarettes she does not drink alcohol. She denies any cardiac arrhythmias History - Past Medical History Cardiovascular: reports: None Respiratory: reports: None Neuro: reports: None Endocrine/Autoimmune: reports: None GI: reports: None CRANBERRY GROWER: reports: None : reports: None HEENT: reports: None Psych: reports: None Musculoskeletal: reports: Osteoarthritis, Osteoporosis, Chronic back pain Derm: reports: Other MRSA Hx?: No - Past Surgical History General: reports: Colonoscopy HEENT: reports: Tonsil/Adenoidectomy Derm: reports: Skin cancer surgery - Family & Social History Family History: Mother: CVA/TIA (), Father: Alcoholism () Family History Comment/Other: She reports her mother had a history of a stroke. Her brother passed with the age of 50 from a myocardial infarction. Living arrangement: At home Living Situation: Alone Social History Notes: Alexis of complications related to DM on February 17, 2024. She had a remote smoking history but quit over 30 years ago. She will have an occasional alcoholic beverage. - Substance History Use: Uses substance without health or social issues: NONE - POLST Patient has POLST: No Meds/Allgy - Home Medications Home Medications: Ambulatory Orders Medication Instructions Recorded Confirmed Multivitamin [Multi-Day Vitamins] 1 each PO DAILY 12/27/13 04/25/24 [place]-3/Dha/Epa/Fish Oil [Fish Oil 1 each PO DAILY 12/27/13 04/25/24 1,000 mg Softgel] Meloxicam [Mobic] 15 mg PO DAILY 03/11/20 04/25/24 cycloSPORINE [Restasis] 1 drops EACHEYE BID 03/11/20 04/25/24 Calcium Carbonate/Vitamin D3 1 each PO BID 01/03/22 04/25/24 [Calcium 600-Vit D3 200 Tablet] Gabapentin [Neurontin] 100 mg PO TID 01/03/22 04/25/24 Aspirin EC [Ecotrin] 81 mg PO DAILY #30 tablet 01/04/22 04/25/24 - Allergies Allergies/Adverse Reactions: Allergies Allergy/AdvReac Type Severity Reaction Status Date / Time No Known Drug Allergies Allergy Verified 04/25/24 15:15 Review of Systems - Constitutional Constitutional: reports: Fatigue, Fever, Chills, Malaise - Eyes Eyes: denies: Pain, Blurred vision - Ears, Nose & Throat Ears, Nose & Throat: denies: Ear pain, Tinnitus, Vertigo - Cardiovascular Cariovascular: denies: Palpitations - Respiratory Respiratory: reports: Cough (dry cough) - Gastrointestinal Gastrointestinal: reports: Poor appetite. denies: Abdominal pain, Black stools, Bloody stools, Bloating - Genitourinary Genitourinary: denies: Dysuria - Integumentary Integumentary: denies: Rash - Neurological Neurological: reports: Focal weakness (chronic left side). denies: General weakness - Psychiatric Psychiatric: reports: Depression - Hematologic/Lymphatic Hematologic/Lymphatic: denies: Anemia - All Other Systems All Other Systems: reports: Reviewed and negative Prior Level of Functionality: Independent. Does not use assistive devices despite her left-sided weakness she is just careful not to fall she states Exam - Vital Signs Vital Signs: Vital Signs x48h Temp Pulse Resp BP Pulse Ox O2 Flow Rate 04/25/24 17:03 18 04/25/24 16:30 82 114/58 L 96 1.5 04/25/24 15:15 97 18 04/25/24 15:11 38.1 C H 95 18 104/52 L 91 L - Physical Exam General Appearance: positive: No acute distress, Lethargic Eyes Bilateral: positive: Normal inspection ENT: positive: ENT inspection nml Neck: positive: Nml inspection Respiratory: positive: Chest non-tender, No respiratory distress, Rhonchi (bilateral, occasional) Cardiovascular: positive: Regular rate & rhythm Peripheral Pulses: positive: 2+ Abdomen: positive: Non-tender, No distention Skin: positive: Color nml Extremities: positive: Non-tender, No pedal edema Neurologic/Psychiatric: positive: Oriented x3, Other (very mild barely perceptible left facial droop, maybe related to scar at upper lip vs CVA effects) Sepsis Event Note (H) - Evaluation Current Stage of Sepsis: Sepsis - Sepsis Criteria Sepsis Criteria: Recorded Temperature greater than 38.3C or Less than 36C, WBC count greater than 12,000 or less than 4000, STEREOPLOTTER OPERATOR: altered consciousness (unrelated to primary neuro pathology) Conclusion/Plan - Problem List (1) Sepsis Conclusion/Plan: As evidenced by confusion leukocytosis and increasing oxygen needs. Her lactate is 1.2. Supportive care. Antibiotics to treat pneumonia. Albuterol Atrovent nebulizers. Repeat CBC in the a.m. (2) Pneumonia Conclusion/Plan: Azithromycin and Rocephin for community-acquired pneumonia. Her oxygen require ment is increasing. She was with normal saturations on room air when I saw her she is now on 1.5 L via nasal cannula. Repeat CBC to evaluate leukocytosis in the a.m. Her respiratory panel was negative for COVID or other viruses. Is likely a bacterial community-acquired pneumonia. She has been febrile to 38.3. Qualifiers: Pneumonia type: due to unspecified organism Laterality: bilateral Lung location: unspecified part of lung Qualified Code(s): J18.9 - Pneumonia, unspecified organism (3) Transaminitis Conclusion/Plan: Elevated transaminases. Will repeat these in the a.m. to trend.Laboratory Tests 04/25/24 15:12 Total Bilirubin 1.3 H AST 133 H ALT 135 H (4) Chronic back pain Conclusion/Plan: Resume home gabapentin. Narcotics as needed. (5) CVA (cerebral vascular accident) Conclusion/Plan: Resume home aspirin.In light of chronic weakness and acute decompensation due to illness will probably need physical therapy evaluation. Qualifiers: CVA mechanism: unspecified Qualified Code(s): I63.9 - Cerebral infarction, unspecified (6) Hypomagnesemia Conclusion/Plan: Repleted. Repeat level in AM. - Lab Results Fish Bones: 04/25/24 15:12 04/25/24 15:12 - Diagnostic Imaging Results Diagnostic Imaging Results: positive: Read contemporaneously Diagnostic Imaging Results Comments: moderate mid lung and mild lower lung opacities probably infectious/inflammatory
[2024-04-25] MEDS: LACTATED RINGERS 1,000 ML IV STA (19:07)
[2024-04-25] MEDS: SODIUM CHLORIDE 0.9% 1,000 ML IV SCH (19:19)
[2024-04-25] MEDS: MAGNESIUM SULFATE 2 GRAM 2 GM/50 ML BAG IV ONE (19:20)
[2024-04-25] MEDS: SODIUM CHLORIDE FLUSH 0.9% 10 ML SYRINGE IVP SCH (19:20)
[2024-04-25] MEDS: HEPARIN 5,000 UNIT/ML VIAL SUBQ SCH (21:35)
[2024-04-26 06:00] LABS: BASOPHILS % (AUTO) 0.6 %; EOSINOPHILS % (AUTO) 0.5 %; HCT - HEMATOCRIT 33.1 % (37.0-47.0); HGB - HEMOGLOBIN 10.7 g/dL (12.0-16.0); LYMPHOCYTES % (AUTO) 5.6 %; MEAN CORPUSCULAR HEMOGLOBIN 33.3 pg (27.0-31.0); MEAN CORPUSCULAR HGB CONC 32.3 g/dL (32.0-36.0); MEAN CORPUSCULAR VOLUME 103.1 fL (81.0-99.0); MEAN PLATELET VOLUME 10.5 fL (7.9-10.8); MONOCYTES % (AUTO) 5.2 %; PLT - PLATELET COUNT 249 10^3/uL (130-450); RED BLOOD COUNT 3.21 10^6/uL (4.20-5.40); RED CELL DISTRIBUTION WIDTH 13.3 % (12.0-15.0); WHITE BLOOD COUNT 23.6 x10^3/uL (4.8-10.8)
[2024-04-26 06:10] LABS: ABNORMAL LYMPHS % (MANUAL) 0 %
[2024-04-26 06:21] LABS: ALBUMIN 3.1 g/dL (3.2-5.5); ALBUMIN/GLOBULIN RATIO 1.6 (1.0-2.2); BILIRUBIN,TOTAL 0.9 mg/dL (0.2-1.0); CALCIUM 7.8 mg/dL (8.5-10.3); MAGNESIUM 2.6 mg/dL (1.7-2.3); TOTAL PROTEIN 5.1 g/dL (6.4-8.9)
[2024-04-26 06:36] LABS: BAND NEUTROPHILS % (MANUAL) 25 %; LYMPHOCYTES # (MANUAL) 0.9 10^3/uL (1.5-3.5); LYMPHOCYTES % (MANUAL) 4 %; MONOCYTES # (MANUAL) 1.9 10^3/uL (0.0-1.0); NEUTROPHILS # (MANUAL) 20.8 10^3/uL (1.5-6.6); RBC MORPHOLOGY (MULTIPLE) NORMAL APPEARANCE (NORMAL)
[2024-04-26 06:37] LABS: DIFFERENTIAL COMMENT MANUAL DIFFERENTIAL; PLATELET ESTIMATE, MANUAL NORMAL (130-450,000) (NORMAL)
[2024-04-26] MEDS ORDERED: CALCIUM CARBONATE PO SCH (09:00)
[2024-04-26] MEDS ORDERED: VITAMIN D3 PO SCH (09:00)
[2024-04-26] MEDS ORDERED: [UNRECOGNIZED DRUG - OTHER] PO SCH (09:00)
[2024-04-26] MEDS: CALCIUM CARB (OYSTER SHELL) 500 MG TABLET PO SCH (09:19)
[2024-04-26] MEDS: MELOXICAM 7.5 MG TABLET PO SCH (09:20)
[2024-04-26] MEDS: OMEGA-3 ACID ETHYL ESTERS 1 GM CAPSULE PO SCH (09:20)
[2024-04-26] MEDS: CHOLECALCIFEROL 400 UNIT TABLET PO SCH (09:20)
[2024-04-26] MEDS: MULTIVITAMIN TABLET PO SCH (09:20)
[2024-04-26] MEDS: ASPIRIN EC 81 MG TABLET PO SCH (09:20)
[2024-04-26] MEDS: cefTRIAXone 1 GM in SODIUM CHLORIDE 0.9% MINIBAG 100 ML IV SCH (09:28)
[2024-04-26] MEDS: CYCLOSPORINE EACHEYE SCH (09:29)
[2024-04-26] MEDS: AZITHROMYCIN INJ 500 MG in SODIUM CHLORIDE 0.9% 250 ML IV SCH (10:29)
--- NOTE | 2024-04-26 11:41 | PHARMACY PROGRESS NOTE ---
- Best Possible Medication History Admit Date and Time: 04/25/24 9691 Processed by: Pharmacy Medications reviewed in ED?: Yes Medication History completed: Yes Patient Interview: Completed Secondary Source(s): Insurance records As the person ultimately responsible for medication therapy, providers are able to order a medication from an existing home medication list in [facility] via the "Reconcile Routine" prior to Confirmation of that medication by contracting support specialist. Such practice is discouraged except when the physician, in their clinical judgment, deems that a medical need exists for a medication without regard to previous use.
--- NOTE | 2024-04-26 13:17 | Discharge Plan ---
Discharge Plan Problem Reviewed?: Yes Disposition: Home, Self Care Condition: Stable Prescriptions: cefuroxime axetiL [Ceftin] 500 mg PO BID #7 tab Benzonatate [Tessalon] 100 mg PO TID PRN #20 cap PRN Reason: Cough Azithromycin [Zithromax] 500 mg PO DAILY #1 tab Diet: Regular Activity Restrictions: No Restrictions Shower Restrictions: No Driving Restrictions: No Weight Bearing: Full Weight Instruction Topics: Pneumonia Health Concerns: You were admitted to the hospital with a pneumonia. We could see this on a chest x-ray you also had a white blood cell count that was high. Your white blood cell count is still elevated but you are not requiring oxygen and we are able to get you the antibiotics that you need. 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 These have already been sent. Please follow the directions as to how to take these. You need to rest, eat a healthy diet and drink plenty of fluids. I do not expect that you are completely well right now but I think you can continue to improve at home. You need to follow-up with your primary care provider within the next week to 10 days. It is important that you accept help from your family during this time. I know it is not the best time to be sick. Plan of Treatment: Azithromycin and Ceftin to treat your pneumonia Kitty Albert to treat your cough Lots of rest lots of fluids No Smoking: If you smoke, Please STOP! Call for help. Follow-up with: Lisa Mackay ARNP [Provider Admit Priv/Credential] -
--- NOTE | 2024-04-26 13:55 | DISCHARGE SUMMARY ---
Discharge Summary Admit Date: 04/25/24 Discharge Date: 04/26/24 Discharging Provider: Blank Sharpe PA-C Primary Care Provider: Lisa Mackay Condition at Discharge: Stable Discharge Disposition: 01 Home, Self Care - DIAGNOSES Admission Diagnoses: Sepsis Pneumonia Transaminitis Chronic back pain History of CVA Hypomagnesemia Discharge Diagnoses with Status of Each Condition: (1) Sepsis Conclusion/Plan: As evidenced by confusion leukocytosis and increasing oxygen needs. Her lactate was 1.2. Responded well to supportive care and antibiotics. Oxygen requirement resolved and her mental status improved. Needs follow-up CBC in the outpatient environment (2) Pneumonia Conclusion/Plan: Azithromycin and Rocephin for community-acquired pneumonia. Her respiratory panel was negative for COVID or other viruses. Is likely a bacterial community- acquired pneumonia. She has been febrile to 38.3.Fever resolved overnight with antibiotic treatment. Qualifiers: Pneumonia type: due to unspecified organism Laterality: bilateral Lung location: unspecified part of lung Qualified Code(s): J18.9 - Pneumonia, unspecified organism (3) Transaminitis Conclusion/Plan: Elevated transaminases. Needs follow-up CMP in the outpatient environment Laboratory Tests 04/25/24 15:12 Total Bilirubin 1.3 H AST 133 H ALT 135 H (4) Chronic back pain Conclusion/Plan: Resume home gabapentin. (5) CVA (cerebral vascular accident) Conclusion/Plan: Resume home aspirin.She has not had any falls at home. She is doing well. She does not use any assistive devices she does state that she is careful not to fall. (6) Hypomagnesemia Conclusion/Plan: Repleted. Repeat was elevated at 2.6. - HPI History of Present Illness: 79-year-old female who presented to the emergency department via EMS. She has had a recent positive COVID contact and was sick at home with upper respiratory symptoms for 2 to 3 days. She has been having fever cough and sore throat she is also having decreased appetite. When EMS arrived at her house her oxygen saturation was 88% on room air with a blood pressure systolic in the 80s. Since arrival in the emergency department her blood pressure was 104/70 on arrival with an O2 sat between 90 and 92% on room air, reported to me, but now is requi ring 1.5L via [place]. her Tmax is 38.3. She is also having some confusion and slow mentation. She denies any history of chronic lung disease she denies any history of heart disease she is overall healthy takes only gabapentin for chronic pain and a "bad back". Also takes aspirin for history of CVA with some chronic left-sided weakness. She does not smoke cigarettes she does not drink alcohol. She denies any cardiac arrhythmias - CONSULTS | PROCEDURES Consultations: none Procedures: Chest x-ray shows moderate midlung and mild lower lung opacities. Repeat chest x-ray is recommended in the outpatient environment. - HOSPITAL COURSE Hospital Course: Admitted with cough and febrile illness with increasing oxygen requirements and confusion. She was started on broad-spectrum antibiotics for community-acquired pneumonia defervesced and felt better. RT oxygen saturation with exertion test was negative for any need for supplemental oxygen. She was discharged to home in s table condition in the care of her family. - ALLERGIES Allergies/Adverse Reactions: Allergies Allergy/AdvReac Type Severity Reaction Status Date / Time No Known Drug Allergies Allergy Verified 04/25/24 15:15 - MEDICATIONS Home Medications: Ambulatory Orders Medication Instructions Recorded Confirmed Multivitamin [Multi-Day Vitamins] 1 each PO DAILY 12/27/13 04/25/24 [place]-3/Dha/Epa/Fish Oil [Fish Oil 1 each PO DAILY 12/27/13 04/25/24 1,000 mg Softgel] Meloxicam [Mobic] 15 mg PO DAILY 03/11/20 04/25/24 cycloSPORINE [Restasis] 1 drops EACHEYE BID 03/11/20 04/25/24 Calcium Carbonate/Vitamin D3 1 each PO BID 01/03/22 04/25/24 [Calcium 600-Vit D3 200 Tablet] Aspirin EC [Ecotrin] 81 mg PO DAILY #30 tablet 01/04/22 04/25/24 Acetaminophen [Aphen] 975 mg PO TID PRN 04/26/24 04/26/24 Alendronate [Fosamax] 70 mg PO Q7D 04/26/24 04/26/24 Azithromycin [Zithromax] 500 mg PO DAILY #1 tab 04/26/24 Benzonatate [Tessalon] 100 mg PO TID PRN #20 cap 04/26/24 Calcitonin [Fortical] 1 spray NS DAILY 04/26/24 04/26/24 Calcium Carb ([place] Shell) 500 mg PO BID tab 04/26/24 [[place]-500] Gabapentin [Neurontin] 100 mg PO TID cap 04/26/24 Gabapentin [Neurontin] 300 mg PO TID 04/26/24 04/26/24 cefuroxime axetiL [Ceftin] 500 mg PO BID #7 tab 04/26/24 oxyBUTYnin chloride [Oxybutynin 5 mg PO DAILY 04/26/24 04/26/24 Chloride] - PHYSICAL EXAM AT DISCHARGE General Appearance: positive: No acute distress, Alert Eyes Bilateral: positive: Normal inspection ENT: positive: ENT inspection nml Neck: positive: Nml inspection Respiratory: positive: Chest non-tender, No respiratory distress, Breath sounds nml Cardiovascular: positive: Regular rate & rhythm Abdomen: positive: Non-tender, No distention Skin: positive: Color nml Extremities: positive: Non-tender Neurologic/Psychiatric: positive: Oriented x3 - LABS Result Diagrams: 04/26/24 05:29 04/26/24 05:29 - SEPSIS Current Stage of Sepsis: Resolved Sepsis Criteria: Recorded Temperature greater than 38.3C or Less than 36C, WBC count greater than 12,000 or less than 4000, QUALITY INTERNSHIP: altered consciousness (unrelated to primary neuro pathology) - FOLLOW UP Follow Up: Lisa Mackay: repeat CMP, CBC and CXR. - TIME SPENT Time Spent in Discharge (Minutes): 30
[2024-04-26] MEDS: GABAPENTIN 100 MG CAPSULE PO SCH (14:32)
[2024-04-26 14:35] VITALS: BP 119/65; O2SAT 90
[2024-04-27] MEDS ORDERED: AZITHROMYCIN 250 MG TABLET PO SCH (09:00)
[2024-04-27] MEDS ORDERED: cefuroxime axetiL 250 MG TABLET PO SCH (09:00)
== END 2024-04-26 14:45 | disposition home or self-care (01) ==
LOC: EDUNIT# → ED 15:06 → MS2 17:46
PROVIDERS: ADMIT Physician Assistant Medical; ATTEND Physician Assistant Medical
DX: A41.9 Sepsis, unspecified organism (principal); J18.9 Pneumonia, unspecified organism; R74.01 Elevation of levels of liver transaminase levels; G89.29 Other chronic pain; M54.9 Dorsalgia, unspecified; E83.42 Hypomagnesemia; Z20.818 Contact with and (suspected) exposure to other bacterial communicable diseases; Z20.822 Contact with and (suspected) exposure to COVID-19; Z20.828 Contact with and (suspected) exposure to other viral communicable diseases; Z79.899 Other long term (current) drug therapy; Z86.73 Personal history of transient ischemic attack (TIA), and cerebral infarction without residual deficits
CPT/HCPCS: 36415; 71045; 80053; 82550; 83605; 83690; 83735; 85025; 87633; 94761; 96361; 96365; 96372; 96375; 96376; 99285; A9270; G0378; J7120

== ENCOUNTER 2024-05-18 08:54 | Outpatient (CLI) | payer MEDICARE | END 2024-05-18 08:55 | disposition critical access hospital (66) | LOC: EMS 08:54 | DX: R41.0 Disorientation, unspecified (principal); R50.9 Fever, unspecified; R53.1 Weakness; R53.83 Other fatigue; R32 Unspecified urinary incontinence | CPT/HCPCS: A0425; A0427 ==

== ENCOUNTER 2024-05-18 09:23 | Inpatient (IN) | payer MEDICARE ==
--- NOTE | 2024-05-18 09:55 | ED Physician Documentation ---
History of Present Illness - Stated complaint Stated Complaint: CONFUSED - Chief complaint Chief Complaint: General - History obtained from History obtained from: EMS - Additonal information Additional information: 79-year-old woman presents by ambulance. Per chart review she has a history of history of CVA with chronic left-sided weaknesses. But overall looks like she is relatively medically healthy. Reportedly was seen by friend last night and friend came back over today and found her in the same position on the couch covered in urine and altered. No history is available from the patient. PD PAST MEDICAL HISTORY - Past Medical History Cardiovascular: None Respiratory: None Neuro: None Endocrine/Autoimmune: None GI: None NURSE ADVISOR: None : None HEENT: None Psych: None Musculoskeletal: Osteoarthritis, Osteoporosis, Chronic back pain Derm: Other - Past Surgical History Past Surgical History: Yes General: Colonoscopy HEENT: Tonsil/Adenoidectomy Derm: Skin cancer surgery - Present Medications Home Medications: Ambulatory Orders Medication Instructions Recorded Confirmed Multivitamin [Multi-Day Vitamins] 1 each PO DAILY 12/27/13 05/18/24 [place]-3/Dha/Epa/Fish Oil [Fish Oil 1 each PO DAILY 12/27/13 05/18/24 1,000 mg Softgel] Meloxicam [Mobic] 15 mg PO DAILY 03/11/20 05/18/24 cycloSPORINE [Restasis] 1 drops EACHEYE BID 03/11/20 05/18/24 Aspirin EC [Ecotrin] 81 mg PO DAILY #30 tablet 01/04/22 05/18/24 Acetaminophen [Aphen] 975 mg PO TID PRN 04/26/24 05/18/24 Alendronate [Fosamax] 70 mg PO Q7D 04/26/24 05/18/24 Azithromycin [Zithromax] 500 mg PO DAILY #1 tab 04/26/24 05/18/24 Benzonatate [Tessalon] 100 mg PO TID PRN #20 cap 04/26/24 05/18/24 Calcitonin [Fortical] 1 spray NS DAILY 04/26/24 05/18/24 Calcium Carb (Oyster Shell) 500 mg PO BID tab 04/26/24 05/18/24 [[place]-500] Gabapentin [Neurontin] 100 mg PO TID cap 04/26/24 Gabapentin [Neurontin] 300 mg PO TID 04/26/24 04/26/24 cefuroxime axetiL [Ceftin] 500 mg PO BID #7 tab 04/26/24 05/18/24 oxyBUTYnin chloride [Oxybutynin 5 mg PO DAILY 04/26/24 05/18/24 Chloride] - Allergies Allergies/Adverse Reactions: Allergies Allergy/AdvReac Type Severity Reaction Status Date / Time No Known Drug Allergies Allergy Verified 05/18/24 09:34 - Social History Does the pt smoke?: No Smoking Status: Never smoker Does the pt drink ETOH?: Yes Does the pt have substance abuse?: No - Immunizations Immunizations are current?: Yes - POLST Patient has POLST: No PD ED PE NORMAL - Vitals Vital signs reviewed: Yes - General General: Alert and oriented X 3, Other (She is confused and ill-appearing. Second blood pressure was 53/32. She is alert and oriented only to person.) - Neck Neck: Supple, no meningeal sign, No bony TTP - Cardiac Cardiac: RRR, No murmur - Respiratory Respiratory: No respiratory distress, Clear bilaterally - Abdomen Abdomen: Soft, Non tender - Derm Derm: Normal color, Warm and dry, Other (There appears to be what looks like a pilonidal cyst abscess in the top of the gluteal crease with overlying cellulitis. Given that that was the apparent source of sepsis I did a brief stab incision after local infiltration of lidocaine at the bedside. It tracks quite deep but there was really no ) - Neuro Eye Opening: Spontaneous Motor: Obeys Commands Verbal: Oriented GCS Score: 15 - Psych Psych: Normal mood, Normal affect Results - Vitals Vitals: Vital Signs - 24 hr 05/18/24 05/18/24 05/18/24 09:26 09:43 10:13 Temperature 38.1 C H Heart Rate 88 90 95 Respiratory 25 H 18 17 Rate Blood Pressure 133/71 H 153/72 H 161/88 H O2 Saturation 99 96 98 Oxygen O2 Source Room air - EKG (time done) 1047 EKG releavant findings:: EKG personally interpreted by author of this note. Relevant findings are: Rate: Rate (enter#) (104) Rhythm: Sinus tachycardia [place]: Normal Intervals: Normal AR QRS: Low voltage Ischemia: Non specific changes. No: ST elevation c/w ischemia Computer interpretation: Disagree with computer - Labs Labs: Microbiology 05/18/24 09:51 Wound Culture - Preliminary Abscess Laboratory Tests 05/18/24 05/18/24 05/18/24 10:04 10:06 10:06 WBC 18.5 H RBC 3.43 L Hgb 11.0 L Hct 34.3 L MCV 100.0 H MCH 32.1 H MCHC 32.1 RDW 12.8 Plt Count 412 MPV 9.5 Neut # (Auto) 16.3 H Lymph # (Auto) 0.6 L Parker # (Auto) 1.5 H Eos # (Auto) 0.0 Baso # (Auto) 0.1 Absolute Nucleated RBC 0.00 Nucleated RBC % 0.0 Sodium 134 L Potassium 4.2 Chloride 101 Carbon Dioxide 24 Anion Gap 9.0 BUN 14 Creatinine 0.9 Estimated GFR (MDRD) 61 L Glucose 125 H Lactic Acid Calcium 8.8 Total Bilirubin 0.9 AST 16 ALT 12 Alkaline Phosphatase 113 C-Reactive Protein 19.9 H Total Protein 7.1 Albumin 3.5 Globulin 3.6 Albumin/Globulin Ratio 1.0 05/18/24 10:06 WBC RBC Hgb Hct MCV MCH MCHC RDW Plt Count MPV Neut # (Auto) Lymph # (Auto) Parker # (Auto) Eos # (Auto) Baso # (Auto) Absolute Nucleated RBC Nucleated RBC % Sodium Potassium Chloride Carbon Dioxide Anion Gap BUN Creatinine Estimated GFR (MDRD) Glucose Lactic Acid 0.9 Calcium Total Bilirubin AST ALT Alkaline Phosphatase C-Reactive Protein Total Protein Albumin Globulin Albumin/Globulin Ratio Procedures - Abscess I&D (location) Pilonidal Preparation: Lidocaine 1% Incision: Incised with scalpel, Culture obtained PD Medical Decision Making - ED course ED course: She presents in septic shock with what looks like a pilonidal abscess but I have concern for necrotizing infection because there was really no pus obtained on stab incision at the bedside even though it tracks quite deep. I spoke with our on-call surgeon, Dr. Mobley at 9:50 AM and we agreed on broad-spectrum antibiosis with Zosyn, clinda, mycin, vancomycin, and fluid resuscitation and she will be by to examine the patient. She did have a single blood pressure reading of 53/32, but she was on her side and the subsequent reading was normotensive again. Dr. Mobley did come by and personally evaluate the patient we discussed the case again in person at 10:15 AM. She does not think it is necrotizing fasciitis/NSTI at this juncture but wants to watch her very close on IV antibiotics. She requested a CT of the chest abdomen pelvis which is ordered. Spoke with Dr. Wise for admission at 10:18 AM. I did update the daughter by phone who will not be able to visit due to a recent foot surgery making her immobile. Departure - Departure Disposition: 66 [facility] DC/Xfer Clinical Impression: Encephalopathy acute, Cellulitis of buttock Sepsis Qualifiers: Sepsis type: sepsis due to unspecified organism Severe sepsis shock status: with septic shock Condition: Critical Discharge Date/Time: 05/18/24 12:30
[2024-05-18 10:12] LABS: BASOPHILS # (AUTO) 0.1 10^3/uL (0.0-0.1); BASOPHILS % (AUTO) 0.3 %; HCT - HEMATOCRIT 34.3 % (37.0-47.0); LYMPHOCYTES # (AUTO) 0.6 10^3/uL (1.5-3.5); MEAN CORPUSCULAR HEMOGLOBIN 32.1 pg (27.0-31.0); MEAN CORPUSCULAR HGB CONC 32.1 g/dL (32.0-36.0); MEAN PLATELET VOLUME 9.5 fL (7.9-10.8); MONOCYTES # (AUTO) 1.5 10^3/uL (0.0-1.0); MONOCYTES % (AUTO) 7.9 %; NEUTROPHILS # (AUTO) 16.3 10^3/uL (1.5-6.6); PLT - PLATELET COUNT 412 10^3/uL (130-450); RED BLOOD COUNT 3.43 10^6/uL (4.20-5.40); RED CELL DISTRIBUTION WIDTH 12.8 % (12.0-15.0); WHITE BLOOD COUNT 18.5 x10^3/uL (4.8-10.8)
[2024-05-18] MEDS: SODIUM CHLORIDE 0.9% 2,000 ML IV STA (10:20)
[2024-05-18] MEDS: PIPERACILLIN/TAZOBACTAM 3.375 GM in SODIUM CHLORIDE 0.9% MINIBAG 100 ML IV STA (10:28)
[2024-05-18] MEDS: CLINDAMYCIN 600 MG/50 ML 50 ML IV ONE (10:31)
[2024-05-18 10:33] LABS: ALBUMIN 3.5 g/dL (3.2-5.5); CALCIUM 8.8 mg/dL (8.5-10.3); CREATININE 0.9 mg/dL (0.6-1.3); POTASSIUM 4.2 mmol/L (3.5-4.5)
[2024-05-18] MEDS ORDERED: ONDANSETRON 4 MG/2 ML VIAL IVP PRN (10:35)
--- NOTE | 2024-05-18 10:54 | XRAY Report ---
PROCEDURE: Chest 1V INDICATIONS: Sepsis TECHNIQUE: One view of the chest was acquired. COMPARISON: Chest radiograph dated May 18, 2024. FINDINGS: Overlying EKG leads slightly limit evaluation. Surgical changes and devices: None. Lungs and pleura: No pleural effusions or pneumothorax. Compared to chest radiograph dated April 25, 2024, previously seen patchy consolidations have decreased with residual linear atelectasis/scar in the right midlung. No new lung abnormality. Mediastinum: Mediastinal contours appear normal. Heart size is normal. Bones and chest wall: No suspicious bony lesions. Overlying soft tissues appear unremarkable. IMPRESSION: Compared to chest radiograph dated April 25, 2024, previously seen patchy consolidations have decreas ed with residual linear atelectasis/scar in the right midlung. No new lung abnormality. Reviewed by: Trina Kemp MD on 05/18/2024 9:53 AM AKJEANNIE Approved by: Trina Kemp MD on 05/18/2024 9:53 AM AKJEANNIE Station ID: [id number]
[2024-05-18] MEDS ORDERED: iohexoL-300 100 ML VIAL ONE (10:58)
[2024-05-18 11:04] LABS: BILIRUBIN,TOTAL 0.9 mg/dL (0.2-1.0); TOTAL PROTEIN 7.1 g/dL (6.4-8.9)
--- NOTE | 2024-05-18 11:06 | HISTORY & PHYSICAL EXAMINATION ---
Chief Complaint - Chief Complaint Chief Complaint: Confusion History of Present Illness - Admitted From Admitted From:: Emergency Department - History Obtained From Records Reviewed: [facility] History obtained from: [facility] Exam Limitations: Patietn altered mental status - History of Present Illness HPI Comment/Other: This patient is a 79 year-old female, with a past medical history of osteoarthritis, osteoporosis, and chronic back pain, who presented to the emergency department via ambulance after being found by a friend altered on her couch and covered in urine. Apparently, the neighbor saw the patient last night, came back this morning to check on her, and found her in the same position on her couch. Upon examination in the ED, she was found to have a pilonidal cyst/abscess with overlying cellulitis. A stab incision was made on the abscess, which drained little to no pus but tracks about 3-4 cm superior to the incision. She continues to be altered in the ED and appears to be in septic shock with concern for a potential necrotizing infection. She was started on fluid resuscitation and broad-spectrum antibiotics of vancomycin, clindamycin, and zosyn. Exam and history is limited as the patient is altered. She is oriented to person only and is unable to answer any other questions. She does verbalize pain when her pilonidal abscess site is examined. She is hypertensive at 170/72 with a respiratory rate of 31 in the ED. She was admitted earlier this month for pneumonia and sepsis, and her chest x-ray shows residual linear atelectasis/scar in the right midlung and a CT ABD/pelvis has been ordered. CRP is elevated at 19.9 and lactate is normal at 0.9. Her in February of this year and she currently lives alone at home. Per the [facility] chart, she smoked in the past, but quit ~30 years ago, and will occasionally drink alcohol. 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 Her brother passed with the age of 50 from a myocardial infarction. Living arrangement: At home Living Situation: Alone Social History Notes: Alexis of complications related to DM on February 17, 2024. She had a remote smoking history but quit over 30 years ago. She will have an occasional alcoholic beverage. - Substance History Use: Uses substance without health or social issues: NONE - POLST Patient has POLST: No Meds/Allgy - Home Medications Home Medications: Ambulatory Orders Medication Instructions Recorded Confirmed Multivitamin [Multi-Day Vitamins] 1 each PO DAILY 12/27/13 05/18/24 [place]-3/Dha/Epa/Fish Oil [Fish Oil 1 each PO DAILY 12/27/13 05/18/24 1,000 mg Softgel] Meloxicam [Mobic] 15 mg PO DAILY 03/11/20 05/18/24 cycloSPORINE [Restasis] 1 drops EACHEYE BID 03/11/20 05/18/24 Aspirin EC [Ecotrin] 81 mg PO DAILY #30 tablet 01/04/22 05/18/24 Acetaminophen [Aphen] 975 mg PO TID PRN 04/26/24 05/18/24 Alendronate [Fosamax] 70 mg PO Q7D 04/26/24 05/18/24 Azithromycin [Zithromax] 500 mg PO DAILY #1 tab 04/26/24 05/18/24 Benzonatate [Tessalon] 100 mg PO TID PRN #20 cap 04/26/24 05/18/24 Calcitonin [Fortical] 1 spray NS DAILY 04/26/24 05/18/24 Calcium Carb (Oyster Shell) 500 mg PO BID tab 04/26/24 05/18/24 [Oysco-500] Gabapentin [Neurontin] 100 mg PO TID cap 04/26/24 Gabapentin [Neurontin] 300 mg PO TID 04/26/24 04/26/24 cefuroxime axetiL [Ceftin] 500 mg PO BID #7 tab 04/26/24 05/18/24 oxyBUTYnin chloride [Oxybutynin 5 mg PO DAILY 04/26/24 05/18/24 Chloride] - Allergies Allergies/Adverse Reactions: Allergies Allergy/AdvReac Type Severity Reaction Status Date / Time No Known Drug Allergies Allergy Verified 05/18/24 09:34 Review of Systems - Respiratory Respiratory: reports: Cough Exam - Vital Signs Reviewed Vital Signs: Yes Vital Signs: Vital Signs x48h Temp Pulse Resp BP Pulse Ox 05/18/24 10:43 96 31 H 170/72 H 98 05/18/24 10:13 95 17 161/88 H 98 05/18/24 09:43 90 18 153/72 H 96 05/18/24 09:26 38.1 C H 88 25 H 133/71 H 99 - Physical Exam General Appearance: positive: Lethargic Eyes Bilateral: positive: Normal inspection, PERRL ENT: positive: ENT inspection nml, Pharynx nml Neck: positive: Nml inspection, Thyroid nml, No JVD, Trachea midline Respiratory: positive: Chest non-tender, No respiratory distress, Breath sounds nml Cardiovascular: positive: Regular rate & rhythm, No murmur, No gallop Peripheral Pulses: positive: 2+ Abdomen: positive: Non-tender, No organomegaly, Nml bowel sounds, No distention. negative: Tenderness Back: positive: Other (Likely pilonidal cyst/abscess at the superior portion of the gluteal crease with overlying cellulitis that has been opened with a stab incision in the ED.) Skin: positive: Color nml, Warm Extremities: positive: Non-tender, Nml appearance, No pedal edema Neurologic/Psychiatric: positive: Disoriented to place, Disoriented to time Conclusion/Plan - Problem List (1) Sepsis Conclusion/Plan: Pt is in septic shock with altered mental status, hypertension, and tachypena after being found altered in her home after being seen in the same position on the cough the night prior. ED exam found a pilonidal cyst/abscess with overlying cellulitis. A stab incision was made with little to no pus drainage and the abscess, although there appears to be a site of possible prior abscess rupture near the stab wound. Abscess tracks 3-4 cm superior to the stab wound. Dr. Mobley was consulted and the patient was strted on vancomycin, clindamycin, and zosyn in the ED as well as fluid resuscitation. Pt will be admitted and continued on current antibiotic regimen. Continue fluid resuscitation as indicated. Awaiting CT ABD/pelvis results and results of blood and wound cultures. Consider and monitor for necrotizing infection. Qualifiers: Sepsis type: sepsis due to unspecified organism Severe sepsis shock status: with septic shock (2) Pilonidal abscess Conclusion/Plan: The Patient was found altered in her home after being seen in the same position on the couch the night prior. Exam in the ED found a pilonidal cyst/abscess with overlying cellulitis. A stab incision was made with little to no pus drainage and the abscess, although there appears to be a site of possible prior abscess rupture near the stab wound. Abscess tracks 3-4 cm superior to the stab wound. Dr. Mobley was consulted and the patient was strted on vancomycin, clindamycin, and zosyn in the ED as well as fluid resuscitation. Pt will be admitted and continued on current antibiotic regimen. Continue fluid resuscitation. Awaiting CT ABD/pelvis results. (3) Cellulitis of buttock Conclusion/Plan: Pilonidal abcess with overlying cellulitis. Stab incision was made in the ED with little to no pus drainage, although there appears to be a site of possible prior abscess rupture near the stab wound. Dr. Mobley evaluated the patient and recommended broad spectrum IV antibiotics of vancomycin, clindamycin, and zosyn as well as a CT ABD/pelvis. Pt is hypertensive, tachypneic, and altered and will be admitted for septic shock. Continue current antibiotics and fluid resuscitation (4) Confusion Conclusion/Plan: Confusion secondary to septic shock. Continue antibiotic regimen and fluid resuscitation. Monitor mental status. (5) Hypertension Conclusion/Plan: Pt was hypertensive in the ED with a highest BP of 170/72. Pt does not have any documented history of HTN. Monitor vitals. (6) Age related osteoporosis Conclusion/Plan: Managed outpatient on calcitonin and alendronate. (7) Osteoarthritis Conclusion/Plan: Pain managed outpatient on meloxicam, gabapentin, and tylenol. Continue current meds prn. (8) Back pain Conclusion/Plan: Pain managed outpatient on meloxicam, gabapentin, and tylenol. Continue current meds prn. - Lab Results Fish Bones: 05/18/24 10:06 05/18/24 10:06
[2024-05-18] MEDS: VANCOMYCIN INJ 2 GM in SODIUM CHLORIDE 0.9% 500 ML IV STA (11:15)
[2024-05-18 12:33] LABS: BILIRUBIN,URINE NEGATIVE (NEGATIVE); GLUCOSE, URINE (UA) NEGATIVE (NEGATIVE); KETONES,URINE (UA) 40 mg/dL (NEGATIVE); LEUKOCYTE ESTERASE, URINE NEGATIVE (NEGATIVE); NITRITE,URINE NEGATIVE (NEGATIVE); OCCULT BLOOD,URINE SMALL (NEGATIVE); PROTEIN,URINE TRACE mg/dL (NEGATIVE); UROBILINOGEN,URINE 0.2 (NORMAL) E.U./dL (NORMAL)
[2024-05-18 12:49] LABS: CLARITY,URINE CLEAR (CLEAR)
[2024-05-18 12:57] LABS: BACTERIA,URINE Few /HPF (None Seen); RBC,URINE 0-5 /HPF (0-5); SQUAMOUS EPITHELIAL CELL,UR FEW Squamous (<= Few); WBC,URINE 0-3 /HPF (0-5)
[2024-05-18] MEDS: PIPERACILLIN/TAZOBACTAM 3.375 GM in SODIUM CHLORIDE 0.9% MINIBAG 100 ML IV SCH (13:37)
[2024-05-18] MEDS: ACETAMINOPHEN 325 MG TABLET PO PRN (13:39)
--- NOTE | 2024-05-18 14:01 | CONSULTATION NOTE ---
Chief Complaint - Chief Complaint Chief Complaint: altered History of Present Illness - History Obtained From History obtained from: ED staff Exam Limitations: no history obtainable from patient - History of Present Illness HPI Comment/Other: 79yoF brought by EMS from home after neighbors called 911. They visited her yesterday, and today found her in the same position and clothing as yesterday, and nonresponsive, thus called 911. In the ED she moans but not oriented. 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 Her brother passed with the age of 50 from a myocardial infarction. Living arrangement: At home Living Situation: Alone Social History Notes: Alexis of complications related to DM on February 17, 2024. She had a remote smoking history but quit over 30 years ago. She will have an occasional alcoholic beverage. - Substance History Use: Uses substance without health or social issues: NONE - POLST Patient has POLST: No Meds/Allgy - Home Medications Home Medications: Ambulatory Orders Medication Instructions Recorded Confirmed Multivitamin [Multi-Day Vitamins] 1 each PO DAILY 12/27/13 05/18/24 [place]-3/Dha/Epa/Fish Oil [Fish Oil 1 each PO DAILY 12/27/13 05/18/24 1,000 mg Softgel] Meloxicam [Mobic] 15 mg PO DAILY 03/11/20 05/18/24 cycloSPORINE [Restasis] 1 drops EACHEYE BID 03/11/20 05/18/24 Aspirin EC [Ecotrin] 81 mg PO DAILY #30 tablet 01/04/22 05/18/24 Acetaminophen [Aphen] 975 mg PO TID PRN 04/26/24 05/18/24 Alendronate [Fosamax] 70 mg PO Q7D 04/26/24 05/18/24 Azithromycin [Zithromax] 500 mg PO DAILY #1 tab 04/26/24 05/18/24 Benzonatate [Tessalon] 100 mg PO TID PRN #20 cap 04/26/24 05/18/24 Calcitonin [Fortical] 1 spray NS DAILY 04/26/24 05/18/24 Calcium Carb (Oyster Shell) 500 mg PO BID tab 04/26/24 05/18/24 [Oysco-500] Gabapentin [Neurontin] 100 mg PO TID cap 04/26/24 Gabapentin [Neurontin] 300 mg PO TID 04/26/24 04/26/24 cefuroxime axetiL [Ceftin] 500 mg PO BID #7 tab 04/26/24 05/18/24 oxyBUTYnin chloride [Oxybutynin 5 mg PO DAILY 04/26/24 05/18/24 Chloride] - Allergies Allergies/Adverse Reactions: Allergies Allergy/AdvReac Type Severity Reaction Status Date / Time No Known Drug Allergies Allergy Verified 05/18/24 09:34 Review of Systems - Constitutional Constitutional: reports: Other (AMS) Exam - Vital Signs Vital Signs: Vital Signs x48h Temp Pulse Pulse Resp BP BP Pulse Ox 05/18/24 12:53 38.2 C H 105 H 16 160/95 H 96 05/18/24 12:00 37.9 C 94 17 148/77 H 93 05/18/24 11:30 37.9 C 101 H 27 H 149/82 H 97 05/18/24 11:00 38.0 C H 88 16 163/74 H 98 05/18/24 10:43 96 31 H 170/72 H 98 05/18/24 10:13 95 17 161/88 H 98 05/18/24 09:43 90 18 153/72 H 96 05/18/24 09:26 38.1 C H 88 25 H 133/71 H 99 - Physical Exam General Appearance: positive: Other (altered, not oriented, moans, eyes open, moving spontaneously) Eyes Bilateral: positive: Normal inspection Respiratory: positive: Breath sounds nml Cardiovascular: positive: Regular rate & rhythm Abdomen: positive: No distention. negative: Guarding Skin: positive: Other (At top of the gluteal cleft, there is a ~8x8 cm area of induration and erythema that has been incised (1cm verticle incision left of midline) by ED physician - mild blood oozing from wound, no pus, no dishwater fluid. The wound is probed with a cotton tip applicator which does not track) Extremities: positive: Nml appearance Neurologic/Psychiatric: positive: Disoriented to person, Disoriented to place, Disoriented to time Conclusion and Plan - Lab Results Laboratory Results 05/18/24 12:29: Urine Color DARK YELLOW, Urine Clarity CLEAR, Urine pH 6.0, Ur Specific [place] 1.025, Urine Protein TRACE, Urine Glucose (UA) NEGATIVE, Urine Ketones 40 H, Urine Occult Blood SMALL H, Urine Nitrite NEGATIVE, Urine Bilirubin NEGATIVE, Urine Urobilinogen 0.2 (NORMAL), Ur Leukocyte Esterase NEGATIVE, Urine RBC 0-5, Urine WBC 0-3, Ur Squamous Epith Cells FEW Squamous, Urine Bacteria Few, Urine Culture Comments NOT INDICATED 05/18/24 10:06: Lactic Acid 0.9 05/18/24 10:06: Sodium 134 L, Potassium 4.2, Chloride 101, Carbon Dioxide 24, Anion Gap 9.0, BUN 14, Creatinine 0.9, Estimated GFR (MDRD) 61 L, Glucose 125 H, Calcium 8.8, Total Bilirubin 0.9, AST 16, ALT 12, Alkaline Phosphatase 113, Total Protein 7.1, Albumin 3.5, Globulin 3.6, Albumin/Globulin Ratio 1.0 05/18/24 10:06: WBC 18.5 H, RBC 3.43 L, Hgb 11.0 L, Hct 34.3 L, MCV 100.0 H, MCH 32.1 H, MCHC 32.1, RDW 12.8, Plt Count 412, MPV 9.5, Neut # (Auto) 16.3 H, Lymph # (Auto) 0.6 L, [place] # (Auto) 1.5 H, Eos # (Auto) 0.0, Baso # (Auto) 0.1, Absolute Nucleated RBC 0.00, Nucleated RBC % 0.0 05/18/24 10:04: C-Reactive Protein 19.9 H - Consultation Note Consultation Note: 79yoF brought to ED altered by EMS, found to have a cellulitis in the pilonidal distribution. Initial concern for NSTI by ED provider due to AMS and a falsely- hypotensive BP read - BPs actually normal to hypertensive (SBP 140-160). HR 90s, low grade temps, and intermittently tachypneic to 30. WBC of 18 and CRP of 19, though lactate normal and BMP fairly normal (Na 134, Cr 0.9 and Glu 125). The pilonidal area at the top of the gluteal cleft certainly has an indurated area of cellulitis; interestingly there was no purulent fluid when Dr. Trejo I&D'd it in the ED, and I also did not find any pockets of purulence when I probed through the incision that he made. Additionally, there is no dishwater fluid and the subcutaneous tissues do not "fall apart" with a push of the cotton tip applicator, as would be the case in an NSTI. I did outline the erythema to be a ble to trend its progress. Overall this seems most consistent with cellulitis, rather than abscess or NSTI, and thus I do not recommend surgical intervention at this time. - recommend broad spectrum abx - recommend CT CAP to further eval for source of sepsis, as physiologic response seems out of proportion to limited area of cellulitis - admit to IM - will follow along Carolyn Mobley DO, FACS General Surgeon [place]
--- NOTE | 2024-05-18 14:02 | CT Report ---
PROCEDURE: Chest W INDICATIONS: IV only sepsis CONTRAST: 100 TECHNIQUE: After the administration of intravenous contrast, a CT scan of the chest was performed. Images were recorded and evaluated at appropriate window settings. Reformats: axial MIP of the chest, coronal and sagittal. For radiation dose reduction, the following was used: automated exposure control, adjustme nt of mA and/or kV according to patient size. COMPARISON: CT chest on January 28, 2022. Lumbar spine radiograph on May 25, 2022 and 50% height lo ss. FINDINGS: Image quality: Diagnostic. Chest wall and lower neck: No thyroid nodule which requires sonographic follow up. No breast mass. No axillary or supraclavicular adenopathy by size. Lungs and pleura: Scattered patchy consolidation. For example, in the right upper lobe (503/31) and t he left lower lobe (503/49). No pleural effusions. No pneumothorax. No suspicious pulmonary nodules which require follow up. Mediastinum: Heart size is normal. No pericardial effusion. No large vessel abnormality. No mediastin al adenopathy by size criteria. No filling defects in the central pulmonary vasculature. Bones: No aggressive osseous abnormality.Compared to prior CT dated January 28, 2022, new compression fra cture at T12 with approximately 80% height loss and moderate osseous retropulsion (505/101) with asso ciated lucent lesion along the inferior endplate (505/107).This was seen on lumbar spine radiograph d ated May 25, 2022 with 50% height loss. Upper Abdomen: Please see same day CT abdomen and pelvis. IMPRESSION: 1.Scattered patchy consolidation, notably in the right upper lobe and left lower lobe, suggestive of pneumonia. 2.Chronic compression fracture at T12 with approximately 80% height loss and moderate osseous retropu lsion. This was seen on lumbar spine radiograph dated May 25, 2022 with 50% height loss. Associa eneida lucent lesion along the inferior endplate is indeterminate and may reflect a Schmorl's node. If c linically warranted, consider a nonemergent MRI of the lumbar spine for further evaluation. Reviewed by: Trina Kemp MD on 05/18/2024 1:00 PM MINE Approved by: Trina Kemp MD on 05/18/2024 1:00 PM MINE Station ID: [id number]
--- NOTE | 2024-05-18 14:11 | CT Report ---
PROCEDURE: Abdomen/Pelvis W INDICATIONS: IV only, sepsis, back wound CONTRAST: 100 TECHNIQUE: After the administration of intravenous contrast, a CT scan of the abdomen and pelvis was performed. Images were recorded and evaluated at appropriate window settings. Reformats: coronal and sagittal. F or radiation dose reduction, the following was used: automated exposure control, adjustment of mA and /or kV according to patient size. COMPARISON: CT abdomen and pelvis on March 11, 2020. FINDINGS: Image quality: Diagnostic. Lower chest: Unremarkable. Liver: No solid mass. Gallbladder: No radiopaque stones or wall thickening. Biliary tree: No intrahepatic or extrahepatic dilation, accounting for age. Spleen: No splenomegaly. Pancreas: No pancreatic ductal dilation. Adrenals: No adrenal nodule. Kidneys and ureters: No hydronephrosis. No renal cystic lesion which requires follow up. No solid mas s. Stomach, bowel and peritoneum: No gastric or small bowel dilation. No abnormal wall thickening. No pa thologic free fluid. Above-average colonic stool burden. Inflammation of the presacral and perirectal space (). No mucosal hyperenhancement in the sigmoid colon or rectum. Lymph nodes: No central or retroperitoneal adenopathy. Vessels: No infrarenal aortic aneurysm. Patent portal vein. Mild calcification of the abdominal aorta and iliac vasculature. PELVIS Reproductive organs: Right adnexal cystic lesion measuring 3.8 x 2.8 cm () new compared to prio r. Bladder: No abnormal wall thickening, accounting for underdistention. Pelvic lymph nodes: No pelvic adenopathy by size criteria. Bones: No aggressive osseous abnormality. Please see same-day CT chest for detailed description of T1 2 vertebral body fracture. Multilevel degenerative changes with S-shaped curvature of the spine with levoconvex curvature of the thoracolumbar spine and dextroconvex curvature of the lumbar spine. Other: No significant ventral or inguinal hernia. IMPRESSION: 1.Right adnexal cystic lesion measuring 3.8 x 2.8 cm which is new compared to prior. Recommend a pelv ic ultrasound for further evaluation. 2.New presacral and perirectal nonspecific inflammation with no discrete fluid collection. No CT abno rmality of the bowel in this region. Findings could reflect sequela of early proctitis or sequela of a PESTICIDE CONTROL INSPECTOR infection. 3.Above-average colonic stool burden which may correlate with constipation. Reviewed by: Trina Kemp MD on 05/18/2024 1:10 PM MINE Approved by: Trina Kemp MD on 05/18/2024 1:10 PM MINE Station ID: [id number]
[2024-05-18] MEDS: iohexoL-300 100 ML VIAL IVP ONE (15:56)
[2024-05-18] MEDS: SODIUM CHLORIDE FLUSH 0.9% 10 ML SYRINGE IVP SCH (19:07)
[2024-05-18] MEDS: CLINDAMYCIN 600 MG/50 ML 50 ML IV SCH (19:07)
[2024-05-18] MEDS: HEPARIN 5,000 UNIT/ML VIAL SUBQ SCH (20:41)
[2024-05-19 05:16] LABS: BASOPHILS % (AUTO) 0.2 %; HCT - HEMATOCRIT 28.1 % (37.0-47.0); HGB - HEMOGLOBIN 9.5 g/dL (12.0-16.0); LYMPHOCYTES # (AUTO) 0.4 10^3/uL (1.5-3.5); LYMPHOCYTES % (AUTO) 2.8 %; MEAN CORPUSCULAR HEMOGLOBIN 33.3 pg (27.0-31.0); MEAN CORPUSCULAR HGB CONC 33.8 g/dL (32.0-36.0); MEAN CORPUSCULAR VOLUME 98.6 fL (81.0-99.0); MEAN PLATELET VOLUME 10.5 fL (7.9-10.8); MONOCYTES # (AUTO) 0.7 10^3/uL (0.0-1.0); MONOCYTES % (AUTO) 4.6 %; NEUTROPHILS # (AUTO) 13.9 10^3/uL (1.5-6.6); NEUTROPHILS % (AUTO) 92.1 %; PLT - PLATELET COUNT 267 10^3/uL (130-450); RED BLOOD COUNT 2.85 10^6/uL (4.20-5.40); RED CELL DISTRIBUTION WIDTH 12.7 % (12.0-15.0); WHITE BLOOD COUNT 15.2 x10^3/uL (4.8-10.8)
[2024-05-19 05:33] LABS: CALCIUM 7.4 mg/dL (8.5-10.3); CREATININE 0.9 mg/dL (0.6-1.3); POTASSIUM 3.4 mmol/L (3.5-4.5)
--- NOTE | 2024-05-19 07:11 | PHARMACY PROGRESS NOTE ---
- Best Possible Medication History Admit Date and Time: 05/18/24 1035 Processed by: Pharmacy Patient Interview: Pt unable to participate Secondary Source(s): Pharmacy records, Insurance records, Previous admit records As the person ultimately responsible for medication therapy, providers are able to order a medication from an existing home medication list in [facility] via the "Reconcile Routine" prior to Confirmation of that medication by learning support teacher. Such practice is discouraged except when the physician, in their clinical judgment, deems that a medical need exists for a medication without regard to previous use.
--- NOTE | 2024-05-19 07:58 | PHARMACY PROGRESS NOTE ---
- Therapy Status Vancomycin regimen day #: 2 Therapy status: Awaiting steady state Basis for treatment: Culture result (MRSA PER BIOFIRE PCR PANEL) Treatment indication: CELLULITIS, SEPSIS - LEROY Risk Risk level for Acute Kidney Injury: Moderate Acute Kidney Injury risk factors: Piperacillin/Tozobactam, IV contrast within 72 hrs, Sepsis - Monitoring and Recommendation Clinical response to treatment: Lab Results 05/18/24 10:06 BUN 14 Creatinine 0.9 Estimated GFR (MDRD) 61 L Cultures 05/18/24 10:00 Blood - Right Iv-Start Blood Culture - Preliminary 05/18/24 10:04 Blood - Left Arm Blood Culture (PCR) - Final 05/18/24 10:04 Blood - Left Arm Blood Culture - Preliminary 05/18/24 09:51 Abscess Wound Culture - Preliminary Monitoring plan: Daily serum creatinine Next trough due prior to maintenance dose #: 3 Next trough due (date/time): 05/21 AT 1030 Areas for additional monitoring: IV to PO when appropriate, Therapy de- escalation based on culture results Pharmacy recommendation: Continue current regime (1250 MG Q24H FOR A PREDICTED AUC = 520)
--- NOTE | 2024-05-19 08:41 | PROVIDER PROGRESS NOTE ---
Subjective - Subjective Pt reports feeling: Improved Subjective: This patient is a 79 year-old female, with a past medical history of osteoarthritis, osteoporosis, and chronic back pain, who presented to the emergency department via ambulance after being found by a friend altered on her couch and covered in urine. Upon examination in the ED, she was found to have a pilonidal cyst/abscess with overlying cellulitis, and a stab incision was made in the abscess, which drained little to no pus but tracks about 3-4 cm superior to the incision. Pt is intermittently oriented to person and denies any pain at rest. She can answer some basic questions, but she often takes an extended period of time to answer. Exam and history continue to be limited due to the patient's altered mental status. Staff spoke with the patient's daughter, Rea, who states that it has been a challenging time for the patient as she lost her to a chronic illness this past February and she is currently in transition to a new home. Her pilonidal cyst/abscess was evaluated by her PCP this past , who cultured the site. Rea lives in [place] and is recovering from recent foot surgery. She will be sending her , Antony, onsite to be with the patient today. The patient is oriented to person only and is unable to answer any other questions. She does verbalize pain when her pilonidal abscess site is examined. The pilonidal abscess site and cellulitis appears to have improved slightly. S he was admitted earlier this month for pneumonia and sepsis, and her chest x-ray shows residual linear atelectasis/scar in the right midlung, and CT shows "scattered patchy consolidation, notably in the right upper lobe and left lower lobe, suggestive of pneumonia". A CT ABD/pelvis was also done that demonstrates a adnexal cyctic lesion that measures 3.8 X 2.8 and presacral and perirectal nonspecific inflammation. Chest x-ray also shows "chronic compression fracture at T12 with approximately 80% height loss and moderate osseous retropulsion" and a Schmorl's node along the inferior endplate. Prior xray on 05/25/2022 showed 50% height loss. She continues to be hemodynamically stable and is not requiring any supplemental oxygen. HTN seen in the ED has resolved today. She denies any chest pain, shortness of breath, or ABD pain, but her exam is limited due to AMS. Pelvic MRI order to evaluate the findings seen on CT as well as a CA125. Azithromycin added to antibiotic regimen to cover pneumonia and will deescalate clindamycin. 20meq PO potassium has been ordered for hypokalemia. Objective - Vital Signs/Intake & Output Vital Signs: Vital Signs x48h Temp Pulse Resp BP Pulse Ox 05/19/24 08:01 37.2 C 65 20 123/65 93 05/19/24 05:40 36.8 C 82 22 126/75 93 05/19/24 01:05 37.4 C 87 22 118/58 L 92 Intake & Output: Intake & Output 05/16/24 05/17/24 05/18/24 05/19/24 23:59 23:59 23:59 23:59 Intake Total 3470 210 Output Total 800 200 Balance 2670 10 - Objective General Appearance: positive: No acute distress, Lethargic Eyes Bilateral: positive: Normal inspection, PERRL ENT: positive: ENT inspection nml, Pharynx nml Neck: positive: Nml inspection, Thyroid nml, No JVD, Trachea midline Respiratory: positive: Chest non-tender, No respiratory distress, Breath sounds nml Cardiovascular: positive: Regular rate & rhythm, No murmur, No gallop Abdomen: positive: Non-tender, No organomegaly, Nml bowel sounds, No distention. negative: Tenderness Skin: positive: Color nml, Warm, Other (Pilonidal abscess site and sorrounding cellulitis is stable and appears mildly improve.) Extremities: positive: Nml appearance, No pedal edema - Lab Results Fish Bones: 05/19/24 04:50 05/19/24 04:50 Other Labs: Lab Results x24hrs 05/19/24 05/19/24 05/18/24 Range/Units 04:50 04:50 12:29 WBC 15.2 H (4.8-10.8) x10^3/uL RBC 2.85 L (4.20-5.40) 10^6/uL Hgb 9.5 L (12.0-16.0) g/dL Hct 28.1 L (37.0-47.0) % MCV 98.6 (81.0-99.0) fL MCH 33.3 H (27.0-31.0) pg MCHC 33.8 (32.0-36.0) g/dL RDW 12.7 (12.0-15.0) % Plt Count 267 (130-450) 10^3/uL MPV 10.5 (7.9-10.8) fL Neut # (Auto) 13.9 H (1.5-6.6) 10^3/uL Lymph # (Auto) 0.4 L (1.5-3.5) 10^3/uL [place] # (Auto) 0.7 (0.0-1.0) 10^3/uL Eos # (Auto) 0.0 (0.0-0.7) 10^3/uL Baso # (Auto) 0.0 (0.0-0.1) 10^3/uL Absolute Nucleated RBC 0.00 x10^3/uL Nucleated RBC % 0.0 /100WBC Sodium 135 (135-145) mmol/L Potassium 3.4 L (3.5-4.5) mmol/L Chloride 106 (101-111) mmol/L Carbon Dioxide 21 (21-32) mmol/L Anion Gap 8.0 (6-13) BUN 13 (6-20) mg/dL Creatinine 0.9 (0.6-1.3) mg/dL Estimated GFR (MDRD) 61 L (>89) Glucose 135 H (74-104) mg/dL Lactic Acid (0.5-2.2) mmol/L Calcium 7.4 L (8.5-10.3) mg/dL Total Bilirubin (0.2-1.0) mg/dL AST (10-42) IU/L ALT (10-60) IU/L Alkaline Phosphatase (42-121) IU/L C-Reactive Protein (<0.5) mg/dL Total Protein (6.4-8.9) g/dL Albumin (3.2-5.5) g/dL Globulin (2.1-4.2) g/dL Albumin/Globulin Ratio (1.0-2.2) Urine Color DARK YELLOW Urine Clarity CLEAR (CLEAR) Urine pH 6.0 (5.0-7.5) PH Ur Specific Blum 1.025 (1.002-1.030) Urine Protein TRACE (NEGATIVE) mg/dL Urine Glucose (UA) NEGATIVE (NEGATIVE) mg/dL Urine Ketones 40 H (NEGATIVE) mg/dL Urine Occult Blood SMALL H (NEGATIVE) Urine Nitrite NEGATIVE (NEGATIVE) Urine Bilirubin NEGATIVE (NEGATIVE) Urine Urobilinogen 0.2 (NORMAL) (NORMAL) E.U./dL Ur Leukocyte Esterase NEGATIVE (NEGATIVE) Urine RBC 0-5 (0-5) /HPF Urine WBC 0-3 (0-5) /HPF Ur Squamous Epith Cells FEW Squamous (<= Few) Urine Bacteria Few (None Seen) /HPF Urine Culture Comments NOT INDICATED 05/18/24 05/18/24 05/18/24 Range/Units 10:06 10:06 10:06 WBC 18.5 H (4.8-10.8) x10^3/uL RBC 3.43 L (4.20-5.40) 10^6/uL Hgb 11.0 L (12.0-16.0) g/dL Hct 34.3 L (37.0-47.0) % MCV 100.0 H (81.0-99.0) fL MCH 32.1 H (27.0-31.0) pg MCHC 32.1 (32.0-36.0) g/dL RDW 12.8 (12.0-15.0) % Plt Count 412 (130-450) 10^3/uL MPV 9.5 (7.9-10.8) fL Neut # (Auto) 16.3 H (1.5-6.6) 10^3/uL Lymph # (Auto) 0.6 L (1.5-3.5) 10^3/uL [place] # (Auto) 1.5 H (0.0-1.0) 10^3/uL Eos # (Auto) 0.0 (0.0-0.7) 10^3/uL Baso # (Auto) 0.1 (0.0-0.1) 10^3/uL Absolute Nucleated RBC 0.00 x10^3/uL Nucleated RBC % 0.0 /100WBC Sodium 134 L (135-145) mmol/L Potassium 4.2 (3.5-4.5) mmol/L Chloride 101 (101-111) mmol/L Carbon Dioxide 24 (21-32) mmol/L Anion Gap 9.0 (6-13) BUN 14 (6-20) mg/dL Creatinine 0.9 (0.6-1.3) mg/dL Estimated GFR (MDRD) 61 L (>89) Glucose 125 H (74-104) mg/dL Lactic Acid 0.9 (0.5-2.2) mmol/L Calcium 8.8 (8.5-10.3) mg/dL Total Bilirubin 0.9 (0.2-1.0) mg/dL AST 16 (10-42) IU/L ALT 12 (10-60) IU/L Alkaline Phosphatase 113 (42-121) IU/L C-Reactive Protein (<0.5) mg/dL Total Protein 7.1 (6.4-8.9) g/dL Albumin 3.5 (3.2-5.5) g/dL Globulin 3.6 (2.1-4.2) g/dL Albumin/Globulin Ratio 1.0 (1.0-2.2) Urine Color Urine Clarity (CLEAR) Urine pH (5.0-7.5) PH Ur Specific Blum (1.002-1.030) Urine Protein (NEGATIVE) mg/dL Urine Glucose (UA) (NEGATIVE) mg/dL Urine Ketones (NEGATIVE) mg/dL Urine Occult Blood (NEGATIVE) Urine Nitrite (NEGATIVE) Urine Bilirubin (NEGATIVE) Urine Urobilinogen (NORMAL) E.U./dL Ur Leukocyte Esterase (NEGATIVE) Urine RBC (0-5) /HPF Urine WBC (0-5) /HPF Ur Squamous Epith Cells (<= Few) Urine Bacteria (None Seen) /HPF Urine Culture Comments 05/18/24 Range/Units 10:04 WBC (4.8-10.8) x10^3/uL RBC (4.20-5.40) 10^6/uL Hgb (12.0-16.0) g/dL Hct (37.0-47.0) % MCV (81.0-99.0) fL MCH (27.0-31.0) pg MCHC (32.0-36.0) g/dL RDW (12.0-15.0) % Plt Count (130-450) 10^3/uL MPV (7.9-10.8) fL Neut # (Auto) (1.5-6.6) 10^3/uL Lymph # (Auto) (1.5-3.5) 10^3/uL [place] # (Auto) (0.0-1.0) 10^3/uL Eos # (Auto) (0.0-0.7) 10^3/uL Baso # (Auto) (0.0-0.1) 10^3/uL Absolute Nucleated RBC x10^3/uL Nucleated RBC % /100WBC Sodium (135-145) mmol/L Potassium (3.5-4.5) mmol/L Chloride (101-111) mmol/L Carbon Dioxide (21-32) mmol/L Anion Gap (6-13) BUN (6-20) mg/dL Creatinine (0.6-1.3) mg/dL Estimated GFR (MDRD) (>89) Glucose (74-104) mg/dL Lactic Acid (0.5-2.2) mmol/L Calcium (8.5-10.3) mg/dL Total Bilirubin (0.2-1.0) mg/dL AST (10-42) IU/L ALT (10-60) IU/L Alkaline Phosphatase (42-121) IU/L C-Reactive Protein 19.9 H (<0.5) mg/dL Total Protein (6.4-8.9) g/dL Albumin (3.2-5.5) g/dL Globulin (2.1-4.2) g/dL Albumin/Globulin Ratio (1.0-2.2) Urine Color Urine Clarity (CLEAR) Urine pH (5.0-7.5) PH Ur Specific Blum (1.002-1.030) Urine Protein (NEGATIVE) mg/dL Urine Glucose (UA) (NEGATIVE) mg/dL Urine Ketones (NEGATIVE) mg/dL Urine Occult Blood (NEGATIVE) Urine Nitrite (NEGATIVE) Urine Bilirubin (NEGATIVE) Urine Urobilinogen (NORMAL) E.U./dL Ur Leukocyte Esterase (NEGATIVE) Urine RBC (0-5) /HPF Urine WBC (0-5) /HPF Ur Squamous Epith Cells (<= Few) Urine Bacteria (None Seen) /HPF Urine Culture Comments ABX Reporting Has patient been on IV antibiotics over the past 48 hours?: Yes Sepsis Event Note (H) - Evaluation Current Stage of Sepsis: Septic shock Possible source of Sepsis: positive: Wound Assessment/Plan - Problem List (1) Sepsis Impression: Pt admitted yesterday for septic shock with altered mental status, hypertension, and tachypena after being found altered in her home after being seen in the same position on the cough the night prior. ED exam found a pilonidal cyst/abscess with overlying cellulitis and a stab incision was made that had little to no drainage. Abscess tracks 3-4 cm superior to the stab incision. Blood culture PCR shows MRSA and preliminary blood cultures are positive for gram positive cocci. Preliminary wound culture is positive for gram positive cocci. WBCs have decreased to 15.2 this morning. Pilonidal cyst site looks slightly improved today. Pt is intermittently oriented to person and denies any pain at rest. She can answer some basic questions, but she often takes an extended period of time to answer. Continue with vancomycin, zosyn, and add zithromax to cover aypical pneumonia. Will discontinue clindamycin. Continue fluid resuscitation as indicated. Continue to monitor for necrotizing infection. Qualifiers: Sepsis type: sepsis due to unspecified organism Severe sepsis shock status: with septic shock (2) Pilonidal abscess Impression: The Patient was found altered in her home after being seen in the same position on the couch the night prior. ED exam found a pilonidal cyst/abscess with overlying cellulitis and a stab incision was made that had little to no drainage. Abscess tracks 3-4 cm superior to the stab incision. Blood culture PCR shows MRSA and preliminary blood cultures are positive for gram positive cocci. Preliminary wound culture is positive for gram positive cocci. WBCs have decreased to 15.2 this morning. Pilonidal cyst site looks slightly improved today. Continue with vancomycin, zosyn, and add zithromax to cover aypical pneumonia. Will discontinue clindamycin. Continue fluid resuscitation as indicated. Continue to monitor for necrotizing infection. (3) Cellulitis of buttock Impression: Blood culture PCR shows MRSA and preliminary blood cultures are positive for gram positive cocci. Preliminary wound culture is positive for gram positive cocci. WBCs have decreased to 15.2 this morning. Pilonidal cyst site and cellulitis looks slightly improved today. Continue with vancomycin, zosyn, and add zithromax to cover aypical pneumonia. Will discontinue clindamycin. Continue fluid resuscitation as indicated. Continue to monitor for necrotizing infection. (4) Confusion Impression: Confusion secondary to septic shock. Continue antibiotic regimen and fluid resuscitation. Monitor mental status. Pt is intermittently oriented to person and denies any pain at rest. She can answer some basic questions, but she often takes an extended period of time to answer. (5) Pneumonia Impression: Pt was admitted and discharged for pneumonia earlier this month. Chest xray on this admit shows decreased patchy consolidations with linear atelectasis/scar in the right midlung. CT demonstrates Scattered patchy consolidation, "notably in the right upper lobe and left lower lobe, suggestive of pneumonia. Lung sounds are clear bilateral and pt is not having any respiratory distress. Azithromycin added to patient's antibiotic regimen to cover pneumonia. Continue to monitor respiratory status. Qualifiers: Pneumonia type: due to unspecified organism Laterality: bilateral Lung location: unspecified part of lung Qualified Code(s): J18.9 - Pneumonia, unspecified organism (6) Pelvic mass in female Impression: CT ABD/pelvis shows a "right adnexal cystic lesion measuring 3.8 X 2.8 cm" and a "new presacral and perirectal nonspecific inflammation with no discrete fluid collection". MRI pelvis and CA125 ordered. (7) Hypertension Impression: Pt was hypertensive in the ED with a highest BP of 170/72. Pt does not have any documented history of HTN. Blood pressure has been stable overnight with no episodes of HTN Monitor vitals. (8) Age related osteoporosis Impression: Managed outpatient on calcitonin and alendronate. (9) Osteoarthritis Impression: Pain managed outpatient on meloxicam, gabapentin, and tylenol. Continue current meds prn. (10) Back pain Impression: Pain managed outpatient on meloxicam, gabapentin, and tylenol. Chest x-ray s hows "chronic compression fracture at T12 with approximately 80% height loss and moderate osseous retropulsion" and a Schmorl's node along the inferior endplate. Prior xray on 05/25/2022 showed 50% height loss. Continue current meds prn.
[2024-05-19] MEDS: polyethylene glycoL 3350 17 GM PACKET PO SCH (08:44)
--- NOTE | 2024-05-19 09:55 | PROVIDER PROGRESS NOTE ---
Subjective - General Admit Date: 05/18/24 - Other Other Information/Narrative: Slightly more alert than yesterday but still unable to clearly answer questions. Endorses pain at sacrum, tolerated breakfast, no nausea of abdominal pain appreciated. Objective - Patient Data Reviewed Vital Signs: Yes Vital Signs: Vital Signs x48h Temp Pulse Resp BP Pulse Ox 05/19/24 08:01 37.2 C 65 20 123/65 93 05/19/24 05:40 36.8 C 82 22 126/75 93 Weight: Weight 05/17/24 05/18/24 05/19/24 23:59 23:59 23:59 Weight (kg) 59.5 kg 59.5 kg Intake & Output: Intake and Output Totals x24h 05/17/24 05/18/24 05/19/24 23:59 23:59 23:59 Intake Total 3470 210 Output Total 800 200 Balance 2670 10 - Lab Results Lab Results: 05/19/24 04:50 05/19/24 04:50 Other Lab Results: Lab Results x24hrs 05/19/24 05/19/24 05/18/24 Range/Units 04:50 04:50 12:29 WBC 15.2 H (4.8-10.8) x10^3/uL RBC 2.85 L (4.20-5.40) 10^6/uL Hgb 9.5 L (12.0-16.0) g/dL Hct 28.1 L (37.0-47.0) % MCV 98.6 (81.0-99.0) fL MCH 33.3 H (27.0-31.0) pg MCHC 33.8 (32.0-36.0) g/dL RDW 12.7 (12.0-15.0) % Plt Count 267 (130-450) 10^3/uL MPV 10.5 (7.9-10.8) fL Neut # (Auto) 13.9 H (1.5-6.6) 10^3/uL Lymph # (Auto) 0.4 L (1.5-3.5) 10^3/uL [place] # (Auto) 0.7 (0.0-1.0) 10^3/uL Eos # (Auto) 0.0 (0.0-0.7) 10^3/uL Baso # (Auto) 0.0 (0.0-0.1) 10^3/uL Absolute Nucleated RBC 0.00 x10^3/uL Nucleated RBC % 0.0 /100WBC Sodium 135 (135-145) mmol/L Potassium 3.4 L (3.5-4.5) mmol/L Chloride 106 (101-111) mmol/L Carbon Dioxide 21 (21-32) mmol/L Anion Gap 8.0 (6-13) BUN 13 (6-20) mg/dL Creatinine 0.9 (0.6-1.3) mg/dL Estimated GFR (MDRD) 61 L (>89) Glucose 135 H (74-104) mg/dL Lactic Acid (0.5-2.2) mmol/L Calcium 7.4 L (8.5-10.3) mg/dL Total Bilirubin (0.2-1.0) mg/dL AST (10-42) IU/L ALT (10-60) IU/L Alkaline Phosphatase (42-121) IU/L C-Reactive Protein (<0.5) mg/dL Total Protein (6.4-8.9) g/dL Albumin (3.2-5.5) g/dL Globulin (2.1-4.2) g/dL Albumin/Globulin Ratio (1.0-2.2) Urine Color DARK YELLOW Urine Clarity CLEAR (CLEAR) Urine pH 6.0 (5.0-7.5) PH Ur Specific [place] 1.025 (1.002-1.030) Urine Protein TRACE (NEGATIVE) mg/dL Urine Glucose (UA) NEGATIVE (NEGATIVE) mg/dL Urine Ketones 40 H (NEGATIVE) mg/dL Urine Occult Blood SMALL H (NEGATIVE) Urine Nitrite NEGATIVE (NEGATIVE) Urine Bilirubin NEGATIVE (NEGATIVE) Urine Urobilinogen 0.2 (NORMAL) (NORMAL) E.U./dL Ur Leukocyte Esterase NEGATIVE (NEGATIVE) Urine RBC 0-5 (0-5) /HPF Urine WBC 0-3 (0-5) /HPF Ur Squamous Epith Cells FEW Squamous (<= Few) Urine Bacteria Few (None Seen) /HPF Urine Culture Comments NOT INDICATED 05/18/24 05/18/24 05/18/24 Range/Units 10:06 10:06 10:06 WBC 18.5 H (4.8-10.8) x10^3/uL RBC 3.43 L (4.20-5.40) 10^6/uL Hgb 11.0 L (12.0-16.0) g/dL Hct 34.3 L (37.0-47.0) % MCV 100.0 H (81.0-99.0) fL MCH 32.1 H (27.0-31.0) pg MCHC 32.1 (32.0-36.0) g/dL RDW 12.8 (12.0-15.0) % Plt Count 412 (130-450) 10^3/uL MPV 9.5 (7.9-10.8) fL Neut # (Auto) 16.3 H (1.5-6.6) 10^3/uL Lymph # (Auto) 0.6 L (1.5-3.5) 10^3/uL [place] # (Auto) 1.5 H (0.0-1.0) 10^3/uL Eos # (Auto) 0.0 (0.0-0.7) 10^3/uL Baso # (Auto) 0.1 (0.0-0.1) 10^3/uL Absolute Nucleated RBC 0.00 x10^3/uL Nucleated RBC % 0.0 /100WBC Sodium 134 L (135-145) mmol/L Potassium 4.2 (3.5-4.5) mmol/L Chloride 101 (101-111) mmol/L Carbon Dioxide 24 (21-32) mmol/L Anion Gap 9.0 (6-13) BUN 14 (6-20) mg/dL Creatinine 0.9 (0.6-1.3) mg/dL Estimated GFR (MDRD) 61 L (>89) Glucose 125 H (74-104) mg/dL Lactic Acid 0.9 (0.5-2.2) mmol/L Calcium 8.8 (8.5-10.3) mg/dL Total Bilirubin 0.9 (0.2-1.0) mg/dL AST 16 (10-42) IU/L ALT 12 (10-60) IU/L Alkaline Phosphatase 113 (42-121) IU/L C-Reactive Protein (<0.5) mg/dL Total Protein 7.1 (6.4-8.9) g/dL Albumin 3.5 (3.2-5.5) g/dL Globulin 3.6 (2.1-4.2) g/dL Albumin/Globulin Ratio 1.0 (1.0-2.2) Urine Color Urine Clarity (CLEAR) Urine pH (5.0-7.5) PH Ur Specific [place] (1.002-1.030) Urine Protein (NEGATIVE) mg/dL Urine Glucose (UA) (NEGATIVE) mg/dL Urine Ketones (NEGATIVE) mg/dL Urine Occult Blood (NEGATIVE) Urine Nitrite (NEGATIVE) Urine Bilirubin (NEGATIVE) Urine Urobilinogen (NORMAL) E.U./dL Ur Leukocyte Esterase (NEGATIVE) Urine RBC (0-5) /HPF Urine WBC (0-5) /HPF Ur Squamous Epith Cells (<= Few) Urine Bacteria (None Seen) /HPF Urine Culture Comments 05/18/24 Range/Units 10:04 WBC (4.8-10.8) x10^3/uL RBC (4.20-5.40) 10^6/uL Hgb (12.0-16.0) g/dL Hct (37.0-47.0) % MCV (81.0-99.0) fL MCH (27.0-31.0) pg MCHC (32.0-36.0) g/dL RDW (12.0-15.0) % Plt Count (130-450) 10^3/uL MPV (7.9-10.8) fL Neut # (Auto) (1.5-6.6) 10^3/uL Lymph # (Auto) (1.5-3.5) 10^3/uL [place] # (Auto) (0.0-1.0) 10^3/uL Eos # (Auto) (0.0-0.7) 10^3/uL Baso # (Auto) (0.0-0.1) 10^3/uL Absolute Nucleated RBC x10^3/uL Nucleated RBC % /100WBC Sodium (135-145) mmol/L Potassium (3.5-4.5) mmol/L Chloride (101-111) mmol/L Carbon Dioxide (21-32) mmol/L Anion Gap (6-13) BUN (6-20) mg/dL Creatinine (0.6-1.3) mg/dL Estimated GFR (MDRD) (>89) Glucose (74-104) mg/dL Lactic Acid (0.5-2.2) mmol/L Calcium (8.5-10.3) mg/dL Total Bilirubin (0.2-1.0) mg/dL AST (10-42) IU/L ALT (10-60) IU/L Alkaline Phosphatase (42-121) IU/L C-Reactive Protein 19.9 H (<0.5) mg/dL Total Protein (6.4-8.9) g/dL Albumin (3.2-5.5) g/dL Globulin (2.1-4.2) g/dL Albumin/Globulin Ratio (1.0-2.2) Urine Color Urine Clarity (CLEAR) Urine pH (5.0-7.5) PH Ur Specific [place] (1.002-1.030) Urine Protein (NEGATIVE) mg/dL Urine Glucose (UA) (NEGATIVE) mg/dL Urine Ketones (NEGATIVE) mg/dL Urine Occult Blood (NEGATIVE) Urine Nitrite (NEGATIVE) Urine Bilirubin (NEGATIVE) Urine Urobilinogen (NORMAL) E.U./dL Ur Leukocyte Esterase (NEGATIVE) Urine RBC (0-5) /HPF Urine WBC (0-5) /HPF Ur Squamous Epith Cells (<= Few) Urine Bacteria (None Seen) /HPF Urine Culture Comments - Imaging Results Radiology Imaging: positive: Final report received Imaging Results Comments: CT abdomen/pel with presacral/pelvic inflammation without fluid collection or inflammation appreciated in bowel; new right adenexal mass. - Current Medications Current Medications: Current Medications Generic Name Dose Route Start Last Admin Trade Name Freq PRN Reason Stop Dose Admin Acetaminophen 650 mg 05/18/24 10:35 05/18/24 17:51 Acetaminophen 325 Mg Tablet PO 650 mg Q4HR PRN Administration Pain 1 to 4, or Fever Heparin Sodium (Porcine) 5,000 unit 05/18/24 21:00 05/19/24 08:42 Heparin 5,000 Unit/Ml Vial SUBQ 5,000 unit BID SHERI Administration Clindamycin Phosphate 50 mls @ 100 mls/hr 05/18/24 19:00 05/19/24 03:30 Cleocin 600 Mg/50 Ml IV Infused Q8H SHERI Infusion Piperacillin Sod/Tazobactam 100 mls @ 25 mls/hr 05/18/24 14:00 05/19/24 06:16 Sod 3.375 gm/ Sodium Chloride IV 25 mls/hr Q8HR SHERI Administration Polyethylene Glycol 17 gm 05/19/24 09:00 05/19/24 08:44 Polyethylene Glycol 3350 17 Gm Packet PO 17 gm DAILY SHERI Administration Sodium Chloride 10 ml 05/18/24 17:00 05/19/24 08:46 Sodium Chloride Flush 0.9% 10 Ml Syringe IVP 10 ml 0100,[id number],1700 SHERI Administration - Physical Exam General Appearance: positive: No acute distress Respiratory: positive: No respiratory distress Cardiovascular: positive: Regular rate & rhythm Abdomen: positive: Non-tender, No distention Skin: positive: Other (ERythema at pilonidal area/top of gluteal cleft is slightly down from yesterday, less indurated) Extremities: positive: Nml appearance Neurologic/Psychiatric: positive: Disoriented to person, Disoriented to place, Disoriented to time ABX Reporting Has patient been on IV antibiotics over the past 48 hours?: Yes Impression/Plan - Problem List Problem List: [id number] admtited to on 05/18 after being found in her home by neighbors with AMS. Found to have cellulitis at pilonidal/sacral location (without underlying abscess) and well as PNA. Since admission she has been found to have blood cx + for MRSA - vancomycin has been added to her abx regimen. The CT obtained after admission has a new 4cm right adenexal mass and pelvic/presacral "hazziness" c/w inflammation though without free fluid or bowel inflammation (and patient without diarrhea or abdominal pain). Unsure what to make of this finding, and unsure if the gluteal cleft cellulitis is related to/tracking from this pelvic inflammation or not. Since admission she is HD normal and afebrile, her WBC has gone down from 18 to 15 and BMP relatively normal. The cellulitis is mildly improved and suspect will continue to improve more rapidly with addition of vancomycin this morning. Not c/w NSTI. - local wound care to I&D site in gluteal cleft (2x2 wet to dry dressing), offloading as possible - agree with vancomycin - consider further evaluation of pelvic inflammation/adenexal mass (pelvic US, MRI, and/or tumor markers) - will follow along Carolyn Tulk DO FACS General Surgeon Delfino
[2024-05-19] MEDS: AZITHROMYCIN INJ 500 MG in SODIUM CHLORIDE 0.9% 250 ML IV SCH (10:20)
[2024-05-19] MEDS: POTASSIUM CHLORIDE 20 MEQ TABLET PO ONE (11:45)
[2024-05-19] MEDS: VANCOMYCIN INJ 1 GM, VANCOMYCIN INJ 250 MG in SODIUM CHLORIDE 0.9% 250 ML IV SCH (11:45)
--- NOTE | 2024-05-19 17:19 | ADVANCE CARE PLANNING NOTE ---
Advance Care Planning - Planning Encounter Date: 05/19/24 Time: 17:39 Purpose: determine desires for her care Parties in Attendance: patient and Blank Sharep PA-C Decisional Capacity of the Patient: Her mental status is improved throughout the day. She is alert and oriented this afternoon. She understands what is going on with her health. She understands that she is sick but now has some insight into her decline and is hopeful that she will get better - Encounter Subjective/Patient's Story: Lost her in February of this year Currently in transition to a new home. Has good support from her daughter Rea who lives in [place] Feels that she has much to look forward to in life Objective/Medical Story: Acute episode of sepsis less than a month after being hospitalized for pneumonia Some chronic back pain related to osteoporotic compression fractures but handling this well Minimal burden of chronic disease I had a discussion with daughter regarding patient's health status and social situation this morning. Goals of Care: To continue to live independently Plan: Full code. Daughter Rea is her medical decision-maker. Full treatment. Patient states that she has POLST form filled out at home. She does not desire to do a new POLST form. We do not have a copy of this POLST form on record at [facility] Code Status: Attempt Resuscitation Time spent on advance care plannin min
[2024-05-19] MEDS: NS W/20 MEQ KCL 1,000 ML IV STA (18:16)
[2024-05-19] MEDS: GABAPENTIN 300 MG CAPSULE PO SCH (22:07)
[2024-05-20 05:20] LABS: BASOPHILS % (AUTO) 0.4 %; EOSINOPHILS % (AUTO) 0.2 %; HCT - HEMATOCRIT 29.7 % (37.0-47.0); HGB - HEMOGLOBIN 9.7 g/dL (12.0-16.0); LYMPHOCYTES # (AUTO) 0.7 10^3/uL (1.5-3.5); LYMPHOCYTES % (AUTO) 6.3 %; MEAN CORPUSCULAR HEMOGLOBIN 32.9 pg (27.0-31.0); MEAN CORPUSCULAR HGB CONC 32.7 g/dL (32.0-36.0); MEAN CORPUSCULAR VOLUME 100.7 fL (81.0-99.0); MEAN PLATELET VOLUME 10.5 fL (7.9-10.8); MONOCYTES # (AUTO) 0.9 10^3/uL (0.0-1.0); NEUTROPHILS % (AUTO) 84.8 %; PLT - PLATELET COUNT 228 10^3/uL (130-450); RED BLOOD COUNT 2.95 10^6/uL (4.20-5.40); RED CELL DISTRIBUTION WIDTH 13.2 % (12.0-15.0); WHITE BLOOD COUNT 10.6 x10^3/uL (4.8-10.8)
[2024-05-20 05:36] LABS: CALCIUM 7.1 mg/dL (8.5-10.3); CREATININE 2.2 mg/dL (0.6-1.3); POTASSIUM 4.3 mmol/L (3.5-4.5)
[2024-05-20] MEDS ORDERED: LINEZOLID 600 MG/300 ML 600 MG/300 ML BAG IV SCH (08:00)
--- NOTE | 2024-05-20 08:56 | Ultrasound Report ---
PROCEDURE: Renal (Retroperitoneal) INDICATIONS: new renal failure TECHNIQUE: Real-time scanning was performed of the retroperitoneal organs, with image documentation. COMPARISON: CT abdomen and pelvis on May 18, 2024. FINDINGS: Kidneys: Kidneys are normal in size. Right kidney measures 10.2 cm long; left kidney measures 9.4 c m long. Right renal cortical thickness is 0.8 cm; left renal cortical thickness is 0.9 cm. Renal par enchyma is echogenic bilaterally. No solid masses, hydronephrosis, or nephrolithiasis. Trace perinep hric free fluid. Bladder: Pre-void bladder volume is 294 mL. Patient was unable to void. Pre-void images demonstrate no intraluminal masses or stones. On pre-void images, bilateral ureteral jets are noted with color Doppler interrogation. (Of note, ureteral jets may not be detectable in up to 25% of cases due to in sufficient differences in specific gravity between ureteral and bladder urine). Miscellaneous: No free abdominal fluid. Right ovarian anechoic simple cyst measuring 3.6 x 2.9 x 3 cm. IMPRESSION: 1.No hydronephrosis or nephrolithiasis bilaterally. Renal parenchyma is echogenic bilaterally which m ay be seen in the setting of medical renal disease. 2. Patient was unable to void; therefore, post void residual is unable to be calculated. 3.Right ovarian anechoic simple cyst measuring 3.6 x 2.9 x 3 cm. Attention on follow-up MRI. Reviewed by: Trina Kemp MD on 05/20/2024 7:55 AM MINE Approved by: Trina Kemp MD on 05/20/2024 7:55 AM MINE Station ID: [id number]
--- NOTE | 2024-05-20 09:57 | PROVIDER PROGRESS NOTE ---
Subjective - General Admit Date: 05/18/24 - Other Other Information/Narrative: Remains HD normal, Ca125 returned in 90s, MRI not available until Monday. No sig events last 24hrs. Remains alert but not oriented this morning. Objective - Patient Data Reviewed Vital Signs: Yes Vital Signs: Vital Signs x48h Temp Pulse Resp BP Pulse Ox 05/20/24 02:30 36.4 C L 72 20 110/66 96 Weight: Weight 05/18/24 05/19/24 05/20/24 23:59 23:59 23:59 Weight (kg) 59.5 kg 59.5 kg Intake & Output: Intake and Output Totals x24h 05/18/24 05/19/24 05/20/24 23:59 23:59 23:59 Intake Total 3470 1320 600 Output Total 800 300 Balance 2670 1020 600 - Lab Results Lab Results: 05/20/24 05:13 05/20/24 05:13 Other Lab Results: Lab Results x24hrs 05/20/24 05/20/24 05/19/24 Range/Units 05:13 05:13 09:50 WBC 10.6 (4.8-10.8) x10^3/uL RBC 2.95 L (4.20-5.40) 10^6/uL Hgb 9.7 L (12.0-16.0) g/dL Hct 29.7 L (37.0-47.0) % MCV 100.7 H (81.0-99.0) fL MCH 32.9 H (27.0-31.0) pg MCHC 32.7 (32.0-36.0) g/dL RDW 13.2 (12.0-15.0) % Plt Count 228 (130-450) 10^3/uL MPV 10.5 (7.9-10.8) fL Neut # (Auto) 9.0 H (1.5-6.6) 10^3/uL Lymph # (Auto) 0.7 L (1.5-3.5) 10^3/uL [place] # (Auto) 0.9 (0.0-1.0) 10^3/uL Eos # (Auto) 0.0 (0.0-0.7) 10^3/uL Baso # (Auto) 0.0 (0.0-0.1) 10^3/uL Absolute Nucleated RBC 0.00 x10^3/uL Nucleated RBC % 0.0 /100WBC Sodium 134 L (135-145) mmol/L Potassium 4.3 (3.5-4.5) mmol/L Chloride 107 (101-111) mmol/L Carbon Dioxide 20 L (21-32) mmol/L Anion Gap 7.0 (6-13) BUN 25 H (6-20) mg/dL Creatinine 2.2 H (0.6-1.3) mg/dL Estimated GFR (MDRD) 22 L (>89) Glucose 107 H (74-104) mg/dL Calcium 7.1 L (8.5-10.3) mg/dL CA 125 Antigen 92.5 H (0.5-35.0) U/mL - Current Medications Current Medications: Current Medications Generic Name Dose Route Start Last Admin Trade Name Freq PRN Reason Stop Dose Admin Acetaminophen 650 mg 05/18/24 10:35 05/19/24 12:14 Acetaminophen 325 Mg Tablet PO 650 mg Q4HR PRN Administration Pain 1 to 4, or Fever Gabapentin 300 mg 05/19/24 22:00 05/20/24 07:04 Gabapentin 300 Mg Capsule PO 300 mg TID SHERI Administration Heparin Sodium (Porcine) 5,000 unit 05/18/24 21:00 05/20/24 09:11 Heparin 5,000 Unit/Ml Vial SUBQ 5,000 unit BID SHERI Administration Piperacillin Sod/Tazobactam 100 mls @ 25 mls/hr 05/18/24 14:00 05/20/24 07:05 Sod 3.375 gm/ Sodium Chloride IV 25 mls/hr Q8HR SHERI Administration Azithromycin 500 mg/ Sodium 250 mls @ 250 mls/hr 05/19/24 10:00 05/20/24 09:10 Chloride IV 05/21/24 09:59 250 mls/hr DAILY SHERI Administration Polyethylene Glycol 17 gm 05/19/24 09:00 05/20/24 09:10 Polyethylene Glycol 3350 17 Gm Packet PO Not Given DAILY SHERI Sodium Chloride 10 ml 05/18/24 17:00 05/20/24 09:10 Sodium Chloride Flush 0.9% 10 Ml Syringe IVP 10 ml 0100,0900,1700 SHERI Administration - Physical Exam Wound/Incisions: positive: Erythema improving (cellulitis at pilonidal distribution (top of gluteal cleft) is improving, wet to dry in place over I&D incision, no purulent drainage) General Appearance: positive: No acute distress, Alert Respiratory: positive: No respiratory distress Cardiovascular: positive: Regular rate & rhythm Abdomen: positive: Non-tender, No distention Skin: positive: Color nml Extremities: positive: Non-tender ABX Reporting Has patient been on IV antibiotics over the past 48 hours?: Yes Impression/Plan - Problem List Problem List: 79yoF admtited to on 05/18 after being found in her home by neighbors with AMS. Found to have cellulitis at pilonidal/sacral location (without underlying abscess) and well as PNA. Since admission she has been found to have blood cx + for MRSA - vancomycin has been added to her abx regimen. The CT obtained after admission has a new 4cm right adenexal mass and pelvic/presacral "hazziness" c/w inflammation though without free fluid or bowel inflammation (and patient without diarrhea or abdominal pain). CA125 is elevated in 90s. Unsure what to m marina of this finding, and unsure if the gluteal cleft cellulitis is related to/tracking from this pelvic inflammation or not. Since admission she is HD normal and afebrile, her WBC has normalized, and the cellulitis is improving, not c/w NSTI. Today she has a new LEROY with Cr to 2.2. - local wound care to I&D site in gluteal cleft (2x2 wet to dry dressing), offloading as possible - agree with vancomycin for MRSA - further evaluation of pelvic inflammation/adenexal mass pending MRI tomorrow - will follow along Signing general surgery care over to Dr. Yasmany Molina, who I discussed the case with and will see the patient later today. Carolyn Mobley DO, FACS General Surgeon [facility]
[2024-05-20] MEDS: LINEZOLID 600 MG/300 ML 600 MG/300 ML BAG IV SCH (11:05)
--- NOTE | 2024-05-20 12:53 | PROVIDER PROGRESS NOTE ---
Subjective - Prog Note Date Prog Note Date: 05/20/24 - Subjective Pt reports feeling: Improved Objective - Vital Signs/Intake & Output Reviewed Vital Signs: Yes Vital Signs: Vital Signs x48h Temp Pulse Resp BP Pulse Ox 05/20/24 10:00 36.9 C 63 20 117/67 95 Intake & Output: Intake & Output 05/17/24 05/18/24 05/19/24 05/20/24 23:59 23:59 23:59 23:59 Intake Total 3470 1320 940 Output Total 800 300 0 Balance 2670 1020 940 - Objective General Appearance: positive: No acute distress Eyes Bilateral: positive: Normal inspection Neck: positive: Nml inspection Respiratory: positive: Chest non-tender, No respiratory distress Cardiovascular: positive: Regular rate & rhythm, No murmur, No gallop Abdomen: positive: Non-tender Skin: positive: Color nml Extremities: positive: Non-tender Neurologic/Psychiatric: positive: Oriented x3 - Lab Results Fish Bones: 05/20/24 05:13 05/20/24 05:13 Other Labs: Lab Results x24hrs 05/20/24 05/20/24 Range/Units 05:13 05:13 WBC 10.6 (4.8-10.8) x10^3/uL RBC 2.95 L (4.20-5.40) 10^6/uL Hgb 9.7 L (12.0-16.0) g/dL Hct 29.7 L (37.0-47.0) % MCV 100.7 H (81.0-99.0) fL MCH 32.9 H (27.0-31.0) pg MCHC 32.7 (32.0-36.0) g/dL RDW 13.2 (12.0-15.0) % Plt Count 228 (130-450) 10^3/uL MPV 10.5 (7.9-10.8) fL Neut # (Auto) 9.0 H (1.5-6.6) 10^3/uL Lymph # (Auto) 0.7 L (1.5-3.5) 10^3/uL [place] # (Auto) 0.9 (0.0-1.0) 10^3/uL Eos # (Auto) 0.0 (0.0-0.7) 10^3/uL Baso # (Auto) 0.0 (0.0-0.1) 10^3/uL Absolute Nucleated RBC 0.00 x10^3/uL Nucleated RBC % 0.0 /100WBC Sodium 134 L (135-145) mmol/L Potassium 4.3 (3.5-4.5) mmol/L Chloride 107 (101-111) mmol/L Carbon Dioxide 20 L (21-32) mmol/L Anion Gap 7.0 (6-13) BUN 25 H (6-20) mg/dL Creatinine 2.2 H (0.6-1.3) mg/dL Estimated GFR (MDRD) 22 L (>89) Glucose 107 H (74-104) mg/dL Calcium 7.1 L (8.5-10.3) mg/dL - Diagnostic Imaging Diagnostic Imaging Results: positive: Final report reviewed Sepsis Event Note (H) - Evaluation Current Stage of Sepsis: Septic shock Possible source of Sepsis: positive: Wound Assessment/Plan - Problem List (1) LEROY (acute kidney injury) Impression: (1) Sepsis Impression: Pt admitted yesterday for septic shock with altered mental status, hypertension, and tachypnea after being found altered in her home after being seen in the same position on the cough the night prior. ED exam found a pilonidal cyst/abscess with overlying cellulitis and a stab incision was made that had little to no drainage. Abscess tracks 3-4 cm superior to the stab incision. Continuing Zosyn for now, de-escalating vancomycin to linezolid as cultures are growing staph and MRSA. WBC 10.6 today Qualifiers: Sepsis type: sepsis due to unspecified organism Severe sepsis shock status: with septic shock (2) Pilonidal abscess Impression: The Patient was found altered in her home after being seen in the same position on the couch the night prior. ED exam found a pilonidal cyst/abscess with overlying cellulitis and a stab incision was made that had little to no drainage. Abscess tracks 3-4 cm superior to the stab incision. blood culture shows staph, wound culture shows MRSA. Antibiotics as above (3) Acute kidney injury Likely secondary to broad-spectrum IV antibiotics. Vancomycin has been discontinued, will recheck chemistry in a.m. will discuss with pharmacy antibiotic options to replace Zosyn given resulting cultures. (4) Cellulitis of buttock Impression: Blood cultures positive for staph, wound cultures positive for MRSA. Antibiotics as above (5) Confusion Impression: Confusion secondary to septic shock. mentation continues to improve with improvement of sepsis (6) Pneumonia Impression: chest x-ray, CT performed on admit showed concern for residual pneumonia. This was previously treated with Ceftin. Will go ahead and cover with Zosyn and azithromycin as we cannot determine at this time whether or not this is residual radiographic sign of pneumonia or active concurrent pneumonia resistant to Ceftin. Qualifiers: Pneumonia type: due to unspecified organism Laterality: bilateral Lung location: unspecified part of lung Qualified Code(s): J18.9 - Pneumonia, unspecified organism (7) Pelvic mass in female Impression: CT ABD/pelvis shows a "right adnexal cystic lesion measuring 3.8 X 2.8 cm" and a "new presacral and perirectal nonspecific inflammation with no discrete fluid collection". MRI pelvis Ordered CA125 elevated, surgery following (8) Hypertension Impression: Pt was hypertensive in the ED with a highest BP of 170/72. Pt does not have any documented history of HTN. Monitor vitals. (9) Age related osteoporosis Impression: Managed outpatient on calcitonin and alendronate. (10) Osteoarthritis Impression: Pain managed outpatient on meloxicam, gabapentin, and tylenol. Continue current meds prn. (11) Back pain Impression: Pain managed outpatient on meloxicam, gabapentin, and tylenol. Chest x-ray shows "chronic compression fracture at T12 with approximately 80% height loss and moderate osseous retropulsion" and a Schmorl's node along the inferior endplate. Prior xray on 05/25/2022 showed 50% height loss. Continue current meds prn. (8) Sepsis Qualifiers: Sepsis type: sepsis due to unspecified organism Severe sepsis shock status: with septic shock (10) Leukocytosis Qualifiers: Leukocytosis type: bandemia Qualified Code(s): D72.825 - Bandemia (11) Pneumonia Qualifiers: Pneumonia type: due to unspecified organism Laterality: bilateral Lung location: unspecified part of lung Qualified Code(s): J18.9 - Pneumonia, unspecified organism
--- NOTE | 2024-05-20 13:51 | PROVIDER PROGRESS NOTE ---
Progress Note General Surgery Progress Note Patient examined, chart, labs, and images reviewed. Cathi is resting comfortably in her bed. She is awake, alert, and cooperative. She complains of no pain. She is tolerating a diet. Her abdomen is soft. I did not examine her wound this afternoon. Her blood cultures demonstrate staph aureus and her lower back I&D site which was cultured identified MRSA. She is on IV Zosyn and Vancomycin. She was also found to have a right ovarian mass and an elevated Ca-125 At this point in time, there is no fluid cavity to drain and no clinical, lab, or image evidence of a NSTI. Surgery will continue to follow. Yasmany Bull MD, FACS General Surgery Service
[2024-05-20] MEDS: PIPERACILLIN/TAZOBACTAM 3.375 GM in SODIUM CHLORIDE 0.9% MINIBAG 100 ML IV SCH (22:14)
[2024-05-21] MEDS: SODIUM CHLORIDE FLUSH 0.9% 10 ML SYRINGE IVP PRN (03:15)
[2024-05-21 05:57] LABS: BASOPHILS # (AUTO) 0.1 10^3/uL (0.0-0.1); BASOPHILS % (AUTO) 0.6 %; EOSINOPHILS # (AUTO) 0.1 10^3/uL (0.0-0.7); HCT - HEMATOCRIT 27.5 % (37.0-47.0); HGB - HEMOGLOBIN 9.1 g/dL (12.0-16.0); LYMPHOCYTES # (AUTO) 0.6 10^3/uL (1.5-3.5); LYMPHOCYTES % (AUTO) 5.2 %; MEAN CORPUSCULAR HEMOGLOBIN 32.4 pg (27.0-31.0); MEAN CORPUSCULAR HGB CONC 33.1 g/dL (32.0-36.0); MEAN CORPUSCULAR VOLUME 97.9 fL (81.0-99.0); MEAN PLATELET VOLUME 10.8 fL (7.9-10.8); MONOCYTES % (AUTO) 8.5 %; NEUTROPHILS # (AUTO) 9.5 10^3/uL (1.5-6.6); NEUTROPHILS % (AUTO) 84.1 %; PLT - PLATELET COUNT 239 10^3/uL (130-450); RED BLOOD COUNT 2.81 10^6/uL (4.20-5.40); RED CELL DISTRIBUTION WIDTH 13.1 % (12.0-15.0); WHITE BLOOD COUNT 11.3 x10^3/uL (4.8-10.8)
[2024-05-21 06:16] LABS: CALCIUM 7.2 mg/dL (8.5-10.3); CREATININE 2.2 mg/dL (0.6-1.3); POTASSIUM 3.5 mmol/L (3.5-4.5)
[2024-05-21] MEDS: ASPIRIN EC 81 MG TABLET PO SCH (08:30)
--- NOTE | 2024-05-21 09:35 | XRAY Report ---
PROCEDURE: Chest 1V INDICATIONS: cough, f/u pneumonia TECHNIQUE: One view of the chest was acquired. COMPARISON: 05/18/2024. FINDINGS: Surgical changes and devices: None. Lungs and pleura: No pleural effusions or pneumothorax. Linear atelectasis in the right mid to upper lung field is improving. Development of atelectasis in the left perihilar region. Minimal patchy lef t basilar atelectasis. Mediastinum: Mediastinal contours appear normal. Heart size is normal. Bones and chest wall: No suspicious bony lesions. Overlying soft tissues appear unremarkable. IMPRESSION: Patchy bilateral atelectasis, left greater than right. Reviewed by: Jairo Olivas MD on 05/21/2024 9:34 AM PDT Approved by: Jairo Olivas MD on 05/21/2024 9:34 AM PDT Station ID: [id number]
--- NOTE | 2024-05-21 10:15 | PROVIDER PROGRESS NOTE ---
Subjective - Prog Note Date Prog Note Date: 05/21/24 Prog Note Time: 10:15 - Subjective Pt reports feeling: Improved Subjective: The patient is a 79-year-old female who was admitted to the hospital with sepsis due to a cellulitis of the buttocks with a pilonidal cyst. In addition she has been treated for pneumonia. Blood cultures x 2 were positive for MRSA. Incidentally noted on imaging was an adnexal mass. An MRI was ordered but has not yet been performed due to the fact that she has worsening acute kidney injury/ATN from her sepsis. When I saw the patient today she sitting up in the bed. She states she is feeling a little bit stronger. She is hopeful that she can go home soon. She denies fever or chills. No chest pain or heart palpitations. She says she does have a little bit more of a cough today but is not coughing up any sputum. She has had no nausea vomiting or diarrhea. Her appetite is slowly improving. She has no urinary complaints. She says she has pain at the site of her pilonidal c yst and that it hurts to sit up. Current Medications - Current Medications Current Medications: Active Medications Generic Name Dose Route Start Last Admin Trade Name Freq PRN Reason Stop Dose Admin Acetaminophen 650 mg 05/18/24 10:35 05/21/24 03:50 Acetaminophen 325 Mg Tablet PO 650 mg Q4HR PRN Administration Pain 1 to 4, or Fever Aspirin 81 mg 05/21/24 09:00 05/21/24 08:30 Aspirin Ec 81 Mg Tablet PO 81 mg DAILY SHERI Administration Gabapentin 300 mg 05/19/24 22:00 05/21/24 07:05 Gabapentin 300 Mg Capsule PO 300 mg TID SHERI Administration Heparin Sodium (Porcine) 5,000 unit 05/18/24 21:00 05/21/24 08:34 Heparin 5,000 Unit/Ml Vial SUBQ 5,000 unit BID SHERI Administration Hydromorphone HCl 0.5 mg 05/18/24 10:51 Hydromorphone 0.5 Mg/0.5 Ml Syringe IVP Q2H PRN Pain 8 to 10 Linezolid 600 mg in 300 mls @ 300 mls/hr 05/20/24 10:00 05/21/24 10:11 Zyvox 600 Mg/300 Ml IV 300 mls/hr Q12H SHERI Administration Piperacillin Sod/Tazobactam 100 mls @ 25 mls/hr 05/20/24 21:00 05/21/24 08:30 Sod 3.375 gm/ Sodium Chloride IV 25 mls/hr BID SHERI Administration Ondansetron HCl 4 mg 05/18/24 10:35 Ondansetron 4 Mg/2 Ml Vial IVP Q6HR PRN Nausea / Vomiting Polyethylene Glycol 17 gm 05/19/24 09:00 05/21/24 08:35 Polyethylene Glycol 3350 17 Gm Packet PO 17 gm DAILY SHERI Administration Sodium Chloride 10 ml 05/18/24 10:35 05/21/24 03:15 Sodium Chloride Flush 0.9% 10 Ml Syringe IVP 10 ml PRN PRN Administration NEEDED PER PROVIDER ORDERS Sodium Chloride 10 ml 05/18/24 17:00 05/21/24 03:15 Sodium Chloride Flush 0.9% 10 Ml Syringe IVP 10 ml 0100,0900,1700 SHERI Administration Multivitamin [Multi-Day Vitamins] 1 each PO DAILY 12/27/13 [place]-3/Dha/Epa/Fish Oil [Fish Oil 1,000 mg Softgel] 1 each PO DAILY 12/27/13 Meloxicam [Mobic] 15 mg PO DAILY 03/11/20 cycloSPORINE [Restasis] 1 drops EACHEYE BID 03/11/20 Acetaminophen [Aphen] 975 mg PO TID PRN 04/26/24 Alendronate [Fosamax] 70 mg PO MO 04/26/24 Calcitonin [Fortical] 1 spray NS DAILY 04/26/24 Gabapentin [Neurontin] 300 mg PO TID 04/26/24 oxyBUTYnin chloride [Oxybutynin Chloride] 5 mg PO DAILY 04/26/24 Objective - Vital Signs/Intake & Output Reviewed Vital Signs: Yes Vital Signs: Vital Signs x48h Temp Pulse Resp BP Pulse Ox 05/21/24 08:35 36.6 C 63 16 108/66 93 Intake & Output: Intake & Output 05/18/24 05/19/24 05/20/24 05/21/24 23:59 23:59 23:59 23:59 Intake Total 3470 1320 3070 280 Output Total 600 089 7240 675 Balance 2670 1020 1445 -395 - Objective General Appearance: positive: No acute distress, Other (She appears to be weak and somewhat anxious) Eyes Bilateral: positive: Normal inspection ENT: positive: Other (Mild bitemporal muscle wasting bilaterally.) Neck: positive: Nml inspection Respiratory: positive: Chest non-tender (She has some scattered rhonchi bilaterally) Cardiovascular: positive: Regular rate & rhythm, No murmur, No gallop. negative: Friction rub Abdomen: positive: Non-tender, No organomegaly, Nml bowel sounds Skin: positive: Color nml, No rash, Warm Extremities: positive: Non-tender, Full ROM, Other (Mild muscle wasting and fat loss throughout all 4 extremities) Neurologic/Psychiatric: positive: Oriented x3, CN's nml (2-12) - Lab Results Fish Bones: 05/21/24 05:35 05/21/24 05:35 Other Labs: Lab Results x24hrs 05/21/24 05/21/24 05/21/24 Range/Units 05:35 05:35 05:35 WBC 11.3 H (4.8-10.8) x10^3/uL RBC 2.81 L (4.20-5.40) 10^6/uL Hgb 9.1 L (12.0-16.0) g/dL Hct 27.5 L (37.0-47.0) % MCV 97.9 (81.0-99.0) fL MCH 32.4 H (27.0-31.0) pg MCHC 33.1 (32.0-36.0) g/dL RDW 13.1 (12.0-15.0) % Plt Count 239 (130-450) 10^3/uL MPV 10.8 (7.9-10.8) fL Neut # (Auto) 9.5 H (1.5-6.6) 10^3/uL Lymph # (Auto) 0.6 L (1.5-3.5) 10^3/uL [place] # (Auto) 1.0 (0.0-1.0) 10^3/uL Eos # (Auto) 0.1 (0.0-0.7) 10^3/uL Baso # (Auto) 0.1 (0.0-0.1) 10^3/uL Absolute Nucleated RBC 0.00 x10^3/uL Nucleated RBC % 0.0 /100WBC Sodium 130 L (135-145) mmol/L Potassium 3.5 (3.5-4.5) mmol/L Chloride 103 (101-111) mmol/L Carbon Dioxide 19 L (21-32) mmol/L Anion Gap 8.0 (6-13) BUN 24 H (6-20) mg/dL Creatinine 2.2 H (0.6-1.3) mg/dL Estimated GFR (MDRD) 22 L (>89) Glucose 107 H (74-104) mg/dL Calcium 7.2 L (8.5-10.3) mg/dL B-Natriuretic Peptide 676 H (5-100) pg/mL ABX Reporting Has patient been on IV antibiotics over the past 48 hours?: Yes Sepsis Event Note (H) - Evaluation Current Stage of Sepsis: Sepsis Possible source of Sepsis: positive: Wound - Sepsis Criteria Sepsis Criteria: Recorded Temperature greater than 38.3C or Less than 36C, Recorded Heart Rate greater than 90 bpm, Recorded Respiratory Rate greater than 20, WBC count greater than 12,000 or less than 4000, [employer]: altered consciousness (unrelated to primary neuro pathology) Assessment/Plan - Problem List (1) Sepsis Impression: The patient had evidence of sepsis that was present at the time of admission. Septic shock has been documented but I am seeing no evidence that she was ever hypotensive. The patient's sepsis is due to cellulitis and abscess due to pilonidal cyst. She also has MRSA bacteremia. Continue treatment as outlined below. Sepsis symptoms are improving Qualifiers: Sepsis type: sepsis due to unspecified organism Severe sepsis shock status: with septic shock (2) Acute kidney injury (LEROY) with acute tubular necrosis (ATN) Impression: Secondary to sepsis. I believe she has an element of ATN due to contrast dye she received earlier in this hospitalization. Currently her creatinine is 2.2. Avoid nephrotoxic medications and check a chemistry panel in the morning (3) MRSA bacteremia Impression: 2 out of 2 blood cultures positive for MRSA. Repeat blood cultures are negative to date. Yesterday she was changed to linezolid which will be continued. (4) Pilonidal abscess Impression: She will continue linezolid. She also is on IV Zosyn for underlying pneumonia. (5) Cellulitis of buttock Impression: As above (6) Pneumonia Impression: The patient did have evidence of pneumonia noted on CT. Continue linezolid and IV Zosyn for now. Qualifiers: Pneumonia type: due to unspecified organism Laterality: bilateral Lung location: unspecified part of lung Qualified Code(s): J18.9 - Pneumonia, unspecified organism (7) Adnexal mass Impression: Noted on CT of the abdomen and pelvis. Retroperitoneal ultrasound indicated that this may be a benign cyst but recommended an MRI for further follow-up. Unfortunately the patient cannot have an MRI due to her kidney function at this time. This can be followed up later in the hospitalization or as an outpatient. (8) Acute metabolic encephalopathy Impression: Secondary to sepsis. Resolved (9) Hypertension Impression: The patient has been markedly hypertensive. Blood pressure is improved. She has IV hydralazine available if needed (10) Osteoporosis Impression: The patient takes Fosamax at home and has known osteoporosis (11) Osteoarthritis Impression: Her meloxicam has been held in light of her acute kidney injury. 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 This was an incidental finding on CT chest (13) Anemia Impression: Stable (14) Hyponatremia Impression: Likely due to her acute illness. Continue to monitor Disposition: The patient needs ongoing hospitalization and will need to stay in the hospital greater than 96 hours. She has an acute kidney injury that needs close monitoring and needs ongoing IV antibiotics for MRSA bacteremia and pneumonia. Timing of disposition will be determined by her clinical course. I am going to get physical therapy and Occupational Therapy to evaluate her today. Time spent: 35 minutes
[2024-05-21] MEDS ORDERED: VANCOMYCIN INJ 1 GM in SODIUM CHLORIDE 0.9% 250 ML IV SCH (11:00)
[2024-05-22 05:58] LABS: BASOPHILS # (AUTO) 0.1 10^3/uL (0.0-0.1); BASOPHILS % (AUTO) 1.2 %; EOSINOPHILS # (AUTO) 0.3 10^3/uL (0.0-0.7); EOSINOPHILS % (AUTO) 3.2 %; HCT - HEMATOCRIT 30.9 % (37.0-47.0); HGB - HEMOGLOBIN 10.4 g/dL (12.0-16.0); LYMPHOCYTES # (AUTO) 0.9 10^3/uL (1.5-3.5); LYMPHOCYTES % (AUTO) 10.6 %; MEAN CORPUSCULAR HEMOGLOBIN 32.3 pg (27.0-31.0); MEAN CORPUSCULAR HGB CONC 33.7 g/dL (32.0-36.0); MEAN PLATELET VOLUME 10.5 fL (7.9-10.8); MONOCYTES # (AUTO) 0.9 10^3/uL (0.0-1.0); MONOCYTES % (AUTO) 9.9 %; NEUTROPHILS # (AUTO) 6.3 10^3/uL (1.5-6.6); NEUTROPHILS % (AUTO) 73.6 %; PLT - PLATELET COUNT 291 10^3/uL (130-450); RED BLOOD COUNT 3.22 10^6/uL (4.20-5.40); RED CELL DISTRIBUTION WIDTH 13.1 % (12.0-15.0); WHITE BLOOD COUNT 8.6 x10^3/uL (4.8-10.8)
[2024-05-22 06:14] LABS: ALBUMIN 2.3 g/dL (3.2-5.5); ALKALINE PHOSPHATASE 197 IU/L (42-121); ALT ALANINE AMINOTRANSFERASE 55 IU/L (10-60); AST ASPARTATE AMINOTRANSFERASE 54 IU/L (10-42); BILIRUBIN,DIRECT < 0.10 mg/dL (0.03-0.18); BILIRUBIN,TOTAL 0.5 mg/dL (0.2-1.0); BUN - BLOOD UREA NITROGEN 21 mg/dL (6-20); CALCIUM 7.9 mg/dL (8.5-10.3); CARBON DIOXIDE - CO2 21 mmol/L (21-32); CHLORIDE 106 mmol/L (101-111); CREATININE 2.1 mg/dL (0.6-1.3); GFR - MDRD 23 (>89); GLUCOSE 104 mg/dL (74-104); MAGNESIUM 1.9 mg/dL (1.7-2.3); PHOSPHORUS 2.4 mg/dL (2.5-5.0); POTASSIUM 3.4 mmol/L (3.5-4.5); SODIUM 136 mmol/L (135-145); TOTAL PROTEIN 5.3 g/dL (6.4-8.9)
--- NOTE | 2024-05-22 07:09 | PROVIDER PROGRESS NOTE ---
Subjective - General Admit Date: 05/18/24 - Review of Systems Wound/Incisions: positive: Erythema improving (cellulitis at pilonidal distribution (top of gluteal cleft) is improving, wet to dry in place over I&D incision, no purulent drainage) - Other Other Information/Narrative: General Surgery Progress Note S: No complaints. She is unaware that she had an I&D of her lower back a few days ago. She denies pain in the area. O: VSS, afeb; The lower back I&D site is without purulence or significant drainage. There is erythema about the 1 cm skin puncture wound but minimal tenderness. Labs: WBC normal Objective - Patient Data Vital Signs: Vital Signs x48h Temp Pulse Resp BP Pulse Ox 05/21/24 23:41 97.9 F 54 L 16 126/63 93 Intake & Output: Intake and Output Totals x24h 05/20/24 05/21/24 05/22/24 23:59 23:59 23:59 Intake Total 3070 1950 100 Output Total 1625 2525 1150 Balance 3655 -504 -0080 - Lab Results Lab Results: 05/22/24 05:31 05/22/24 05:31 Other Lab Results: Lab Results x24hrs 05/22/24 05/22/24 05/21/24 Range/Units 05:31 05:31 05:35 WBC 8.6 (4.8-10.8) x10^3/uL RBC 3.22 L (4.20-5.40) 10^6/uL Hgb 10.4 L (12.0-16.0) g/dL Hct 30.9 L (37.0-47.0) % MCV 96.0 (81.0-99.0) fL MCH 32.3 H (27.0-31.0) pg MCHC 33.7 (32.0-36.0) g/dL RDW 13.1 (12.0-15.0) % Plt Count 291 (130-450) 10^3/uL MPV 10.5 (7.9-10.8) fL Neut # (Auto) 6.3 (1.5-6.6) 10^3/uL Lymph # (Auto) 0.9 L (1.5-3.5) 10^3/uL [place] # (Auto) 0.9 (0.0-1.0) 10^3/uL Eos # (Auto) 0.3 (0.0-0.7) 10^3/uL Baso # (Auto) 0.1 (0.0-0.1) 10^3/uL Absolute Nucleated RBC 0.00 x10^3/uL Nucleated RBC % 0.0 /100WBC Sodium 136 (135-145) mmol/L Potassium 3.4 L (3.5-4.5) mmol/L Chloride 106 (101-111) mmol/L Carbon Dioxide 21 (21-32) mmol/L Anion Gap 9.0 (6-13) BUN 21 H (6-20) mg/dL Creatinine 2.1 H (0.6-1.3) mg/dL Estimated GFR (MDRD) 23 L (>89) Glucose 104 (74-104) mg/dL Calcium 7.9 L (8.5-10.3) mg/dL Phosphorus 2.4 L (2.5-5.0) mg/dL Magnesium 1.9 (1.7-2.3) mg/dL Total Bilirubin 0.5 (0.2-1.0) mg/dL Direct Bilirubin < 0.10 (0.03-0.18) mg/dL AST 54 H (10-42) IU/L ALT 55 (10-60) IU/L Alkaline Phosphatase 197 H (42-121) IU/L B-Natriuretic Peptide 676 H (5-100) pg/mL Total Protein 5.3 L (6.4-8.9) g/dL Albumin 2.3 L (3.2-5.5) g/dL Globulin 3.0 (2.1-4.2) g/dL - Current Medications Current Medications: Current Medications Generic Name Dose Route Start Last Admin Trade Name Freq PRN Reason Stop Dose Admin Acetaminophen 650 mg 05/18/24 10:35 05/21/24 21:13 Acetaminophen 325 Mg Tablet PO 650 mg Q4HR PRN Administration Pain 1 to 4, or Fever Aspirin 81 mg 05/21/24 09:00 05/21/24 08:30 Aspirin Ec 81 Mg Tablet PO 81 mg DAILY SHERI Administration Gabapentin 300 mg 05/19/24 22:00 05/22/24 06:21 Gabapentin 300 Mg Capsule PO 300 mg TID SHERI Administration Heparin Sodium (Porcine) 5,000 unit 05/18/24 21:00 05/21/24 20:54 Heparin 5,000 Unit/Ml Vial SUBQ 5,000 unit BID SHERI Administration Linezolid 600 mg in 300 mls @ 300 mls/hr 05/20/24 10:00 05/21/24 23:40 Zyvox 600 Mg/300 Ml IV Infused Q12H SHERI Infusion Piperacillin Sod/Tazobactam 100 mls @ 25 mls/hr 05/20/24 21:00 05/22/24 01:00 Sod 3.375 gm/ Sodium Chloride IV Infused BID SHERI Infusion Polyethylene Glycol 17 gm 05/19/24 09:00 05/21/24 08:35 Polyethylene Glycol 3350 17 Gm Packet PO 17 gm DAILY SHERI Administration Sodium Chloride 10 ml 05/18/24 10:35 05/21/24 03:15 Sodium Chloride Flush 0.9% 10 Ml Syringe IVP 10 ml PRN PRN Administration NEEDED PER PROVIDER ORDERS Sodium Chloride 10 ml 05/18/24 17:00 05/21/24 22:37 Sodium Chloride Flush 0.9% 10 Ml Syringe IVP 10 ml 0100,0900,1700 SHERI Administration Impression/Plan - Problem List Problem List: General Surgery Progress Note S: No complaints. She is unaware that she had an I&D of her lower back a few days ago. She denies pain in the area. O: VSS, afeb; The lower back I&D site is without purulence or significant drainage. There is erythema about the 1 cm skin puncture wound but minimal tenderness. Labs: WBC 8.6; Hgb 10.9; Cr 2.1; Glu 104; BNP 676; CA 125 93 Blood and I&D cultures - MRSA CT - Right adnexal mass US - Right ovarian cyst Assessment: 1) MRSA bacteremia with lower back cellulitis without clinic, CT or US evidence of drainable fluid. Patient seems to be responding to IV Vancomycin 2) Elevated CA 125 and right ovarian cyst 3) Elevated BNP Recommendation: 1) No indication for surgical intervention at this time regarding the MRSA infection 2) Consider OBGYN evaluation of ovarian cyst 3) The General Surgery Service will sign off of case today. Please do not hesitate to contact us if you have further questions or concerns or if you wish to have us continue to follow this patient with you. Everett Bull MD, FACS General Surgery Service [facility] [place]
[2024-05-22] MEDS: POTASSIUM CHLORIDE 20 MEQ TABLET PO ONE (08:05)
[2024-05-22] MEDS: NEUTRA-PHOS 250 MG TABLET PO SCH (08:05)
--- NOTE | 2024-05-22 09:05 | PROVIDER PROGRESS NOTE ---
Subjective - Prog Note Date Prog Note Date: 05/22/24 Prog Note Time: 09:05 - Subjective Pt reports feeling: No change Subjective: The patient is resting in her bed. Nursing staff reports no overnight events. She tells me that she was able to get up yesterday and ambulate a bit. She sat in a chair but has a significant amount of pain when she is sitting. Otherwise she denies fever or chills. No chest pain, shortness of breath or cough. No nausea vomiting or diarrhea. No urinary complaints Current Medications - Current Medications Current Medications: Active Medications Generic Name Dose Route Start Last Admin Trade Name Freq PRN Reason Stop Dose Admin Acetaminophen 650 mg 05/18/24 10:35 05/21/24 21:13 Acetaminophen 325 Mg Tablet PO 650 mg Q4HR PRN Administration Pain 1 to 4, or Fever Aspirin 81 mg 05/21/24 09:00 05/22/24 08:05 Aspirin Ec 81 Mg Tablet PO 81 mg DAILY SHERI Administration Gabapentin 300 mg 05/19/24 22:00 05/22/24 06:21 Gabapentin 300 Mg Capsule PO 300 mg TID SHERI Administration Heparin Sodium (Porcine) 5,000 unit 05/18/24 21:00 05/22/24 08:09 Heparin 5,000 Unit/Ml Vial SUBQ 5,000 unit BID SHERI Administration Hydromorphone HCl 0.5 mg 05/18/24 10:51 Hydromorphone 0.5 Mg/0.5 Ml Syringe IVP Q2H PRN Pain 8 to 10 Linezolid 600 mg in 300 mls @ 300 mls/hr 05/20/24 10:00 05/21/24 23:40 Zyvox 600 Mg/300 Ml IV Infused Q12H SHERI Infusion Piperacillin Sod/Tazobactam 100 mls @ 25 mls/hr 05/20/24 21:00 05/22/24 08:01 Sod 3.375 gm/ Sodium Chloride IV 25 mls/hr BID SHERI Administration Ondansetron HCl 4 mg 05/18/24 10:35 Ondansetron 4 Mg/2 Ml Vial IVP Q6HR PRN Nausea / Vomiting Polyethylene Glycol 17 gm 05/19/24 09:00 05/22/24 08:11 Polyethylene Glycol 3350 17 Gm Packet PO Not Given DAILY SHERI Sodium Chloride 10 ml 05/18/24 10:35 05/21/24 03:15 Sodium Chloride Flush 0.9% 10 Ml Syringe IVP 10 ml PRN PRN Administration NEEDED PER PROVIDER ORDERS Sodium Chloride 10 ml 05/18/24 17:00 05/22/24 08:11 Sodium Chloride Flush 0.9% 10 Ml Syringe IVP 10 ml 0100,0900,1700 SHERI Administration Sodium Phosphate 250 mg 05/22/24 08:00 05/22/24 08:05 Neutra-Phos 250 Mg Tablet PO 05/23/24 17:01 250 mg TIDWM SHERI Administration Multivitamin [Multi-Day Vitamins] 1 each PO DAILY 12/27/13 [place]-3/Dha/Epa/Fish Oil [Fish Oil 1,000 mg Softgel] 1 each PO DAILY 12/27/13 Meloxicam [Mobic] 15 mg PO DAILY 03/11/20 cycloSPORINE [Restasis] 1 drops EACHEYE BID 03/11/20 Acetaminophen [Aphen] 975 mg PO TID PRN 04/26/24 Alendronate [Fosamax] 70 mg PO MO 04/26/24 Calcitonin [Fortical] 1 spray NS DAILY 04/26/24 Gabapentin [Neurontin] 300 mg PO TID 04/26/24 oxyBUTYnin chloride [Oxybutynin Chloride] 5 mg PO DAILY 04/26/24 Objective - Vital Signs/Intake & Output Reviewed Vital Signs: Yes Vital Signs: Vital Signs x48h Temp Pulse Resp BP Pulse Ox 05/22/24 08:20 36.7 C 58 L 22 157/80 H 95 Intake & Output: Intake & Output 05/19/24 05/20/24 05/21/24 05/22/24 23:59 23:59 23:59 23:59 Intake Total 1320 3070 1950 100 Output Total 300 1625 2525 1150 Balance 1020 1441 -575 -1050 - Objective General Appearance: positive: No acute distress Eyes Bilateral: positive: Normal inspection ENT: positive: Other (She has mild bitemporal muscle wasting bilaterally) Neck: positive: Nml inspection Respiratory: positive: Chest non-tender, No respiratory distress, Breath sounds nml Cardiovascular: positive: Regular rate & rhythm, No murmur, No gallop. negative: Friction rub Abdomen: positive: Non-tender, No organomegaly, Nml bowel sounds Skin: positive: Color nml, No rash, Warm Extremities: positive: Non-tender, Other (She has muscle wasting and fat loss throughout all 4 extremities) Neurologic/Psychiatric: positive: Oriented x3, CN's nml (2-12) - Lab Results Fish Bones: 05/22/24 05:31 05/22/24 05:31 Other Labs: Lab Results x24hrs 05/22/24 05/22/24 05/21/24 Range/Units 05:31 05:31 05:35 WBC 8.6 (4.8-10.8) x10^3/uL RBC 3.22 L (4.20-5.40) 10^6/uL Hgb 10.4 L (12.0-16.0) g/dL Hct 30.9 L (37.0-47.0) % MCV 96.0 (81.0-99.0) fL MCH 32.3 H (27.0-31.0) pg MCHC 33.7 (32.0-36.0) g/dL RDW 13.1 (12.0-15.0) % Plt Count 291 (130-450) 10^3/uL MPV 10.5 (7.9-10.8) fL Neut # (Auto) 6.3 (1.5-6.6) 10^3/uL Lymph # (Auto) 0.9 L (1.5-3.5) 10^3/uL [place] # (Auto) 0.9 (0.0-1.0) 10^3/uL Eos # (Auto) 0.3 (0.0-0.7) 10^3/uL Baso # (Auto) 0.1 (0.0-0.1) 10^3/uL Absolute Nucleated RBC 0.00 x10^3/uL Nucleated RBC % 0.0 /100WBC Sodium 136 (135-145) mmol/L Potassium 3.4 L (3.5-4.5) mmol/L Chloride 106 (101-111) mmol/L Carbon Dioxide 21 (21-32) mmol/L Anion Gap 9.0 (6-13) BUN 21 H (6-20) mg/dL Creatinine 2.1 H (0.6-1.3) mg/dL Estimated GFR (MDRD) 23 L (>89) Glucose 104 (74-104) mg/dL Calcium 7.9 L (8.5-10.3) mg/dL Phosphorus 2.4 L (2.5-5.0) mg/dL Magnesium 1.9 (1.7-2.3) mg/dL Total Bilirubin 0.5 (0.2-1.0) mg/dL Direct Bilirubin < 0.10 (0.03-0.18) mg/dL AST 54 H (10-42) IU/L ALT 55 (10-60) IU/L Alkaline Phosphatase 197 H (42-121) IU/L B-Natriuretic Peptide 676 H (5-100) pg/mL Total Protein 5.3 L (6.4-8.9) g/dL Albumin 2.3 L (3.2-5.5) g/dL Globulin 3.0 (2.1-4.2) g/dL ABX Reporting Has patient been on IV antibiotics over the past 48 hours?: Yes Sepsis Event Note (H) - Evaluation Current Stage of Sepsis: Sepsis Possible source of Sepsis: positive: Wound - Sepsis Criteria Sepsis Criteria: Recorded Temperature greater than 38.3C or Less than 36C, Recorded Heart Rate greater than 90 bpm, Recorded Respiratory Rate greater than 20, WBC count greater than 12,000 or less than 4000, GRAPE CRUSHER: altered consciousness (unrelated to primary neuro pathology) Assessment/Plan - Problem List (1) Sepsis Impression: The patient had evidence of sepsis present at the time of admission. She has persistent bacteremia but overall her white blood cell count and evidence of sepsis is improving. Please see therapy as outlined below. Qualifiers: Sepsis type: sepsis due to unspecified organism Severe sepsis shock status: with septic shock (2) Acute kidney injury (LEROY) with acute tubular necrosis (ATN) Impression: Likely due to ATN from sepsis and contrast dye. Creatinine is persistently elevated at 2.1. Fortunately not worsening. Continue to avoid nephrotoxic medications (3) MRSA bacteremia Impression: The patient's second set of blood cultures is positive. There was only 24 hours before it was redrawn. I have reordered blood cultures x 2 today. I have also ordered a 2D cardiac echo. She is having a PICC line placed today. She may require infectious disease consultation and long-term antibiotics depending on what her blood cultures do. Continue linezolid. (4) Pilonidal abscess Impression: There was no drainable abscess. General surgery has been following. She has MRSA bacteremia. Continue linezolid. She is also on IV Zosyn (5) Cellulitis of buttock Impression: . Continue antibiotics as outlined above. Improving (6) Pneumonia Impression: She is on IV Zosyn to cover for pneumonia. Will likely de-escalate this tomorrow. Qualifiers: Pneumonia type: due to unspecified organism Laterality: bilateral Lung location: unspecified part of lung Qualified Code(s): J18.9 - Pneumonia, unspecified organism (7) Adnexal mass Impression: Unfortunately she cannot have an MRI of the pelvis at this time due to her acute kidney injury. This will need to be worked up as an outpatient. She does have an elevated CA 125. (8) Acute metabolic encephalopathy Impression: Secondary to sepsis. Resolved. She is back to her cognitive baseline (9) Hypertension Impression: Currently on no medications and blood pressures are adequately controlled (10) Osteoporosis Impression: She takes Fosamax at home (11) Osteoarthritis Impression: Her meloxicam has been held in light of her acute kidney injury. 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 She has Tylenol available if needed (13) Anemia Impression: Stable. This is an anemia of chronic disease (14) Hyponatremia Impression: Likely due to her acute illness. Resolved Disposition: Inpatient hospitalization remains necessary. The patient has persistent positive blood cultures. Blood cultures will be repeated today. She may need long-term IV antibiotics. Ultimately I believe the care coordinators are trying to get her into rehab for wound care and probable long-term IV antibiotics at discharge. Time spent: 35 minutes
[2024-05-22] MEDS: MULTIVITAMIN W/MINERALS TABLET PO SCH (17:30)
[2024-05-22] MEDS ORDERED: MAG HYDROX/AL HYDROX/SIMETH 30 ML UDC PO PRN (18:31)
[2024-05-22] MEDS: FAMOTIDINE 20 MG TABLET PO SCH (21:36)
[2024-05-23 05:31] LABS: BASOPHILS # (AUTO) 0.1 10^3/uL (0.0-0.1); BASOPHILS % (AUTO) 1.3 %; EOSINOPHILS # (AUTO) 0.6 10^3/uL (0.0-0.7); EOSINOPHILS % (AUTO) 6.7 %; HCT - HEMATOCRIT 28.3 % (37.0-47.0); HGB - HEMOGLOBIN 9.5 g/dL (12.0-16.0); LYMPHOCYTES # (AUTO) 1.5 10^3/uL (1.5-3.5); LYMPHOCYTES % (AUTO) 15.8 %; MEAN CORPUSCULAR HEMOGLOBIN 31.8 pg (27.0-31.0); MEAN CORPUSCULAR HGB CONC 33.6 g/dL (32.0-36.0); MEAN CORPUSCULAR VOLUME 94.6 fL (81.0-99.0); MEAN PLATELET VOLUME 10.3 fL (7.9-10.8); MONOCYTES # (AUTO) 1.2 10^3/uL (0.0-1.0); MONOCYTES % (AUTO) 12.6 %; NEUTROPHILS # (AUTO) 5.6 10^3/uL (1.5-6.6); NEUTROPHILS % (AUTO) 59.9 %; PLT - PLATELET COUNT 296 10^3/uL (130-450); RED BLOOD COUNT 2.99 10^6/uL (4.20-5.40); RED CELL DISTRIBUTION WIDTH 13.2 % (12.0-15.0); WHITE BLOOD COUNT 9.3 x10^3/uL (4.8-10.8)
[2024-05-23 05:47] LABS: ALBUMIN 2.5 g/dL (3.2-5.5); CALCIUM 8.5 mg/dL (8.5-10.3); CREATININE 1.8 mg/dL (0.6-1.3); MAGNESIUM 1.7 mg/dL (1.7-2.3); PHOSPHORUS 3.9 mg/dL (2.5-5.0); POTASSIUM 3.8 mmol/L (3.5-4.5)
[2024-05-23] MEDS: SACCHAROMYCES BOULARDII 250 MG CAPSULE PO SCH (08:45)
--- NOTE | 2024-05-23 09:23 | PROVIDER PROGRESS NOTE ---
Subjective - Prog Note Date Prog Note Date: 05/23/24 Prog Note Time: 09:20 - Subjective Pt reports feeling: Improved Subjective: The patient is resting in her bed. She is awake and alert and states she is feeling well this morning. No fever or chills. No chest pain or heart palpitations. No nausea or vomiting. She did have several episodes of diarrhea yesterday. She continues to have pain at the site of her pilonidal abscess. No urinary complaints Current Medications - Current Medications Current Medications: Active Medications Generic Name Dose Route Start Last Admin Trade Name Freq PRN Reason Stop Dose Admin Acetaminophen 650 mg 05/18/24 10:35 05/22/24 16:36 Acetaminophen 325 Mg Tablet PO 650 mg Q4HR PRN Administration Pain 1 to 4, or Fever Al Hydroxide/Mg Hydroxide 30 ml 05/22/24 18:31 Mag Hydrox/Al Hydrox/Simeth 30 Ml Udc PO Q4HR PRN INDIGESTION Aspirin 81 mg 05/21/24 09:00 05/23/24 08:45 Aspirin Ec 81 Mg Tablet PO 81 mg DAILY SHERI Administration Famotidine 20 mg 05/22/24 21:00 05/22/24 21:36 Famotidine 20 Mg Tablet PO 20 mg QPM SHERI Administration Gabapentin 300 mg 05/19/24 22:00 05/23/24 05:44 Gabapentin 300 Mg Capsule PO 300 mg TID SHERI Administration Heparin Sodium (Porcine) 5,000 unit 05/18/24 21:00 05/23/24 08:46 Heparin 5,000 Unit/Ml Vial SUBQ 5,000 unit BID SHERI Administration Hydromorphone HCl 0.5 mg 05/18/24 10:51 Hydromorphone 0.5 Mg/0.5 Ml Syringe IVP Q2H PRN Pain 8 to 10 Linezolid 600 mg in 300 mls @ 300 mls/hr 05/20/24 10:00 05/22/24 22:39 Zyvox 600 Mg/300 Ml IV Infused Q12H SHERI Infusion Multivitamins/Minerals 1 tab 05/22/24 17:00 05/23/24 08:45 Multivitamin W/Minerals Tablet PO 1 tab DAILYWM SHERI Administration Ondansetron HCl 4 mg 05/18/24 10:35 Ondansetron 4 Mg/2 Ml Vial IVP Q6HR PRN Nausea / Vomiting Polyethylene Glycol 17 gm 09/01/24 09:00 05/23/24 08:46 Polyethylene Glycol 3350 17 Gm Packet PO Not Given DAILY SHERI Saccharomyces Boulardii 250 mg 05/23/24 08:00 05/23/24 08:45 Saccharomyces Boulardii 250 Mg Capsule PO 250 mg BIDWM SHERI Administration Sodium Chloride 10 ml 05/18/24 10:35 05/21/24 03:15 Sodium Chloride Flush 0.9% 10 Ml Syringe IVP 10 ml PRN PRN Administration NEEDED PER PROVIDER ORDERS Sodium Chloride 10 ml 05/18/24 17:00 05/23/24 08:46 Sodium Chloride Flush 0.9% 10 Ml Syringe IVP 10 ml 0100,0900,1700 SHERI Administration Sodium Phosphate 250 mg 05/22/24 08:00 05/23/24 08:45 Neutra-Phos 250 Mg Tablet PO 05/23/24 17:01 250 mg TIDWM SHERI Administration Multivitamin [Multi-Day Vitamins] 1 each PO DAILY 12/27/13 [place]-3/Dha/Epa/Fish Oil [Fish Oil 1,000 mg Softgel] 1 each PO DAILY 12/27/13 Meloxicam [Mobic] 15 mg PO DAILY 03/11/20 cycloSPORINE [Restasis] 1 drops EACHEYE BID 03/11/20 Acetaminophen [Aphen] 975 mg PO TID PRN 04/26/24 Alendronate [Fosamax] 70 mg PO MO 04/26/24 Calcitonin [Fortical] 1 spray NS DAILY 04/26/24 Gabapentin [Neurontin] 300 mg PO TID 04/26/24 oxyBUTYnin chloride [Oxybutynin Chloride] 5 mg PO DAILY 04/26/24 Objective - Vital Signs/Intake & Output Reviewed Vital Signs: Yes Vital Signs: Vital Signs x48h Temp Pulse Resp BP Pulse Ox 05/23/24 07:55 36.7 C 52 L 18 153/76 H 92 Intake & Output: Intake & Output 05/20/24 05/21/24 05/22/24 05/23/24 23:59 23:59 23:59 23:59 Intake Total 3070 1950 2802 480 Output Total 7461 2980 5275 3091 Balance 1445 -575 -173 -1045 - Objective General Appearance: positive: No acute distress Eyes Bilateral: positive: Normal inspection ENT: positive: Other (Mild bitemporal muscle wasting bilaterally) Neck: positive: Nml inspection Respiratory: positive: Chest non-tender, No respiratory distress, Breath sounds nml Cardiovascular: positive: Regular rate & rhythm, No murmur, No gallop. negative: Friction rub Abdomen: positive: Non-tender, No organomegaly, Nml bowel sounds Skin: positive: Color nml, No rash, Warm, Dry Extremities: positive: Non-tender, Full ROM, Nml appearance, Other (Muscle wasting and fat loss throughout all 4 extremities) Neurologic/Psychiatric: positive: Oriented x3, CN's nml (2-12) - Lab Results Fish Bones: 05/23/24 05:15 05/23/24 05:15 Other Labs: Lab Results x24hrs 05/23/24 05/23/24 Range/Units 05:15 05:15 WBC 9.3 (4.8-10.8) x10^3/uL RBC 2.99 L (4.20-5.40) 10^6/uL Hgb 9.5 L (12.0-16.0) g/dL Hct 28.3 L (37.0-47.0) % MCV 94.6 (81.0-99.0) fL MCH 31.8 H (27.0-31.0) pg MCHC 33.6 (32.0-36.0) g/dL RDW 13.2 (12.0-15.0) % Plt Count 296 (130-450) 10^3/uL MPV 10.3 (7.9-10.8) fL Neut # (Auto) 5.6 (1.5-6.6) 10^3/uL Lymph # (Auto) 1.5 (1.5-3.5) 10^3/uL [place] # (Auto) 1.2 H (0.0-1.0) 10^3/uL Eos # (Auto) 0.6 (0.0-0.7) 10^3/uL Baso # (Auto) 0.1 (0.0-0.1) 10^3/uL Absolute Nucleated RBC 0.00 x10^3/uL Nucleated RBC % 0.0 /100WBC Sodium 137 (135-145) mmol/L Potassium 3.8 (3.5-4.5) mmol/L Chloride 106 (101-111) mmol/L Carbon Dioxide 24 (21-32) mmol/L Anion Gap 7.0 (6-13) BUN 17 (6-20) mg/dL Creatinine 1.8 H (0.6-1.3) mg/dL Estimated GFR (MDRD) 27 L (>89) Glucose 98 (74-104) mg/dL Calcium 8.5 (8.5-10.3) mg/dL Phosphorus 3.9 (2.5-5.0) mg/dL Magnesium 1.7 (1.7-2.3) mg/dL Albumin 2.5 L (3.2-5.5) g/dL ABX Reporting Has patient been on IV antibiotics over the past 48 hours?: Yes Sepsis Event Note (H) - Evaluation Current Stage of Sepsis: Sepsis Possible source of Sepsis: positive: Wound - Sepsis Criteria Sepsis Criteria: Recorded Temperature greater than 38.3C or Less than 36C, Recorded Heart Rate greater than 90 bpm, Recorded Respiratory Rate greater than 20, WBC count greater than 12,000 or less than 4000, BOILER TECHNICIAN: altered consciousness (unrelated to primary neuro pathology) Assessment/Plan - Problem List (1) Sepsis Impression: The patient had evidence of sepsis present at the time of admission. Sepsis symptoms are improving. Repeat blood cultures were obtained yesterday and we will follow-up with those results. Sepsis is due to cellulitis and pilonidal abscess and also to pneumonia. Qualifiers: Sepsis type: sepsis due to unspecified organism Severe sepsis shock status: with septic shock (2) Acute kidney injury (LEROY) with acute tubular necrosis (ATN) Impression: Her creatinine is finally trending downwards. Currently 1.9 today. The patient had ATN due to sepsis and contrast dye. (3) MRSA bacteremia Impression: The patient has had 2 sets of positive blood cultures. Repeat cultures were obtained yesterday. Will reach out for a consult to infectious disease today for recommendations on length of therapy. 2D echocardiogram was ordered yesterday but has not yet been performed. (4) Pilonidal abscess Impression: I was able to take a look at this this afternoon. There is some purulent material draining from the abscess. There is some induration surrounding it consistent with her MRSA infection. No fluctuance and the abscess is draining. There is some erythema surrounding the wound but it is not hot. Continue current IV antibiotics. (5) Cellulitis of buttock Impression: Continue linezolid. (6) Pneumonia Impression: Her Zosyn was stopped yesterday. Continue linezolid Qualifiers: Pneumonia type: due to unspecified organism Laterality: bilateral Lung location: unspecified part of lung Qualified Code(s): J18.9 - Pneumonia, unspecified organism (7) Adnexal mass Impression: She has been unable to have an MRI of the abdomen due to her acute kidney injury. We will see if she is still in the hospital when her creatinine improves and possibly we can get this MRI before she leaves the hospital. Creatinine was somewhat improved today. (8) Acute metabolic encephalopathy Impression: Secondary to sepsis. Resolved (9) Hypertension Impression: Stable (10) Osteoporosis Impression: The patient takes Fosamax at home (11) Osteoarthritis Impression: Meloxicam has been held due to her acute kidney injury. 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 She has Tylenol available if needed (13) Anemia Impression: Stable (14) Hyponatremia Impression: Secondary to acute illness. Resolved (15) Diarrhea Impression: The patient had a couple of loose stools yesterday. A probiotic has been added to her regimen. If she continues to have greater than 3 episodes of loose stools today we will check her stool for C. difficile infection Disposition: Inpatient hospitalization remains necessary. I going to reach out to infectious disease today regarding length of therapy for her MRSA bacteremia. She is awaiting placement for wound care and long-term antibiotic therapy as well as rehab. Time spent: 35 minutes
[2024-05-24 06:02] LABS: BASOPHILS # (AUTO) 0.1 10^3/uL (0.0-0.1); BASOPHILS % (AUTO) 0.9 %; EOSINOPHILS # (AUTO) 0.7 10^3/uL (0.0-0.7); EOSINOPHILS % (AUTO) 5.5 %; HCT - HEMATOCRIT 27.8 % (37.0-47.0); HGB - HEMOGLOBIN 9.3 g/dL (12.0-16.0); LYMPHOCYTES # (AUTO) 1.4 10^3/uL (1.5-3.5); LYMPHOCYTES % (AUTO) 11.4 %; MEAN CORPUSCULAR HGB CONC 33.5 g/dL (32.0-36.0); MEAN CORPUSCULAR VOLUME 95.5 fL (81.0-99.0); MEAN PLATELET VOLUME 10.5 fL (7.9-10.8); MONOCYTES # (AUTO) 1.3 10^3/uL (0.0-1.0); MONOCYTES % (AUTO) 10.5 %; NEUTROPHILS # (AUTO) 8.7 10^3/uL (1.5-6.6); NEUTROPHILS % (AUTO) 68.9 %; PLT - PLATELET COUNT 332 10^3/uL (130-450); RED BLOOD COUNT 2.91 10^6/uL (4.20-5.40); RED CELL DISTRIBUTION WIDTH 13.2 % (12.0-15.0); WHITE BLOOD COUNT 12.6 x10^3/uL (4.8-10.8)
[2024-05-24 06:18] LABS: ALBUMIN 2.6 g/dL (3.2-5.5); CALCIUM 8.8 mg/dL (8.5-10.3); CREATININE 1.6 mg/dL (0.6-1.3); MAGNESIUM 1.5 mg/dL (1.7-2.3); PHOSPHORUS 5.3 mg/dL (2.5-5.0); POTASSIUM 3.3 mmol/L (3.5-4.5)
[2024-05-24] MEDS ORDERED: LOPERAMIDE 2 MG CAPSULE PO PRN (07:21)
[2024-05-24] MEDS: POTASSIUM CHLORIDE 20 MEQ TABLET PO ONE (08:54)
[2024-05-24] MEDS: MAGNESIUM SULFATE 2 GRAM 2 GM/50 ML BAG IV ONE (08:55)
--- NOTE | 2024-05-24 09:17 | PROVIDER PROGRESS NOTE ---
Subjective - Prog Note Date Prog Note Date: 05/24/24 Prog Note Time: 09:10 - Subjective Pt reports feeling: Improved Subjective: The patient is up standing in the bathroom washing her face. She says that she feels well overnight. She has had some urinary frequency and incontinence but that has been her only problem so far. We discussed the fact that her kidney function is improving and we are going to attempt to pursue the MRI this afternoon. I have a call into infectious disease regarding her blood cultures. Today she denies fever or chills. No chest pain, shortness of breath or cough. No nausea vomiting or diarrhea. She has some urinary incontinence and urgency but no dysuria Current Medications - Current Medications Current Medications: Active Medications Generic Name Dose Route Start Last Admin Trade Name Freq PRN Reason Stop Dose Admin Acetaminophen 650 mg 05/18/24 10:35 05/22/24 16:36 Acetaminophen 325 Mg Tablet PO 650 mg Q4HR PRN Administration Pain 1 to 4, or Fever Al Hydroxide/Mg Hydroxide 30 ml 05/22/24 18:31 Mag Hydrox/Al Hydrox/Simeth 30 Ml Udc PO Q4HR PRN INDIGESTION Aspirin 81 mg 05/21/24 09:00 05/24/24 08:55 Aspirin Ec 81 Mg Tablet PO 81 mg DAILY SHERI Administration Famotidine 20 mg 05/22/24 21:00 05/23/24 21:36 Famotidine 20 Mg Tablet PO 20 mg QPM SHERI Administration Gabapentin 300 mg 05/19/24 22:00 05/24/24 05:11 Gabapentin 300 Mg Capsule PO 300 mg TID SHERI Administration Heparin Sodium (Porcine) 5,000 unit 05/18/24 21:00 05/24/24 08:55 Heparin 5,000 Unit/Ml Vial SUBQ 5,000 unit BID SHERI Administration Hydromorphone HCl 0.5 mg 05/18/24 10:51 Hydromorphone 0.5 Mg/0.5 Ml Syringe IVP Q2H PRN Pain 8 to 10 Linezolid 600 mg in 300 mls @ 300 mls/hr 05/20/24 10:00 05/23/24 22:52 Zyvox 600 Mg/300 Ml IV Infused Q12H SHERI Infusion Loperamide HCl 2 mg 05/24/24 07:21 Loperamide 2 Mg Capsule PO QID PRN Diarrhea Multivitamins/Minerals 1 tab 05/22/24 17:00 05/24/24 08:54 Multivitamin W/Minerals Tablet PO 1 tab DAILYWM SHERI Administration Ondansetron HCl 4 mg 05/18/24 10:35 Ondansetron 4 Mg/2 Ml Vial IVP Q6HR PRN Nausea / Vomiting Polyethylene Glycol 17 gm 05/19/24 09:00 05/24/24 08:54 Polyethylene Glycol 3350 17 Gm Packet PO Not Given DAILY SHERI Saccharomyces Boulardii 250 mg 05/23/24 08:00 05/24/24 08:54 Saccharomyces Boulardii 250 Mg Capsule PO 250 mg BIDWM SHERI Administration Sodium Chloride 10 ml 05/18/24 10:35 05/21/24 03:15 Sodium Chloride Flush 0.9% 10 Ml Syringe IVP 10 ml PRN PRN Administration NEEDED PER PROVIDER ORDERS Sodium Chloride 10 ml 05/18/24 17:00 05/24/24 08:54 Sodium Chloride Flush 0.9% 10 Ml Syringe IVP 10 ml 0100,0900,1700 SHERI Administration Multivitamin [Multi-Day Vitamins] 1 each PO DAILY 12/27/13 [place]-3/Dha/Epa/Fish Oil [Fish Oil 1,000 mg Softgel] 1 each PO DAILY 12/27/13 Meloxicam [Mobic] 15 mg PO DAILY 03/11/20 cycloSPORINE [Restasis] 1 drops EACHEYE BID 03/11/20 Acetaminophen [Aphen] 975 mg PO TID PRN 04/26/24 Alendronate [Fosamax] 70 mg PO MO 04/26/24 Calcitonin [Fortical] 1 spray NS DAILY 04/26/24 Gabapentin [Neurontin] 300 mg PO TID 04/26/24 oxyBUTYnin chloride [Oxybutynin Chloride] 5 mg PO DAILY 04/26/24 Objective - Vital Signs/Intake & Output Reviewed Vital Signs: Yes Vital Signs: Vital Signs x48h Temp Pulse Resp BP Pulse Ox 05/24/24 07:57 36.7 C 56 L 18 154/78 H 93 Intake & Output: Intake & Output 05/21/24 05/22/24 05/23/24 05/24/24 23:59 23:59 23:59 23:59 Intake Total 3066 2802 2220 640 Output Total 7779 5722 4657 Balance -575 -173 -205 640 - Objective General Appearance: positive: No acute distress Eyes Bilateral: positive: Normal inspection ENT: positive: Other (Mild bitemporal muscle wasting bilaterally) Neck: positive: Nml inspection Respiratory: positive: Chest non-tender, No respiratory distress, Breath sounds nml Cardiovascular: positive: Regular rate & rhythm, No murmur, No gallop. negative: Friction rub Abdomen: positive: Non-tender, No organomegaly, Nml bowel sounds Skin: positive: Color nml, No rash, Warm, Dry Extremities: positive: Non-tender, Full ROM Neurologic/Psychiatric: positive: Oriented x3, CN's nml (2-12) - Lab Results Fish Bones: 05/24/24 04:59 05/24/24 04:59 Other Labs: Lab Results x24hrs 05/24/24 05/24/24 05/23/24 Range/Units 04:59 04:59 11:50 WBC 12.6 H (4.8-10.8) x10^3/uL RBC 2.91 L (4.20-5.40) 10^6/uL Hgb 9.3 L (12.0-16.0) g/dL Hct 27.8 L (37.0-47.0) % MCV 95.5 (81.0-99.0) fL MCH 32.0 H (27.0-31.0) pg MCHC 33.5 (32.0-36.0) g/dL RDW 13.2 (12.0-15.0) % Plt Count 332 (130-450) 10^3/uL MPV 10.5 (7.9-10.8) fL Neut # (Auto) 8.7 H (1.5-6.6) 10^3/uL Lymph # (Auto) 1.4 L (1.5-3.5) 10^3/uL Stanley # (Auto) 1.3 H (0.0-1.0) 10^3/uL Eos # (Auto) 0.7 (0.0-0.7) 10^3/uL Baso # (Auto) 0.1 (0.0-0.1) 10^3/uL Absolute Nucleated RBC 0.00 x10^3/uL Nucleated RBC % 0.0 /100WBC Sodium 138 (135-145) mmol/L Potassium 3.3 L (3.5-4.5) mmol/L Chloride 101 (101-111) mmol/L Carbon Dioxide 27 (21-32) mmol/L Anion Gap 10.0 (6-13) BUN 16 (6-20) mg/dL Creatinine 1.6 H (0.6-1.3) mg/dL Estimated GFR (MDRD) 31 L (>89) Glucose 100 (74-104) mg/dL Calcium 8.8 (8.5-10.3) mg/dL Phosphorus 5.3 H (2.5-5.0) mg/dL Magnesium 1.5 L (1.7-2.3) mg/dL Albumin 2.6 L (3.2-5.5) g/dL Stl C. diff Tox B Gene NEGATIVE (NEGATIVE) ABX Reporting Has patient been on IV antibiotics over the past 48 hours?: Yes Sepsis Event Note (H) - Evaluation Current Stage of Sepsis: Sepsis Possible source of Sepsis: positive: Wound - Sepsis Criteria Sepsis Criteria: Recorded Temperature greater than 38.3C or Less than 36C, Recorded Heart Rate greater than 90 bpm, Recorded Respiratory Rate greater than 20, WBC count greater than 12,000 or less than 4000, WAREHOUSE REPRESENTATIVE: altered consciousness (unrelated to primary neuro pathology) Assessment/Plan - Problem List (1) Sepsis Impression: Her sepsis symptoms are improving. Third set of blood cultures are negative to date. Therapy will be outlined below Qualifiers: Sepsis type: sepsis due to unspecified organism Severe sepsis shock status: with septic shock (2) Acute kidney injury (LEROY) with acute tubular necrosis (ATN) Impression: Multifactorial secondary to sepsis as well as contrast dye. Her creatinine is slowly improving and is down to 1.6 today. Will give her 1 L of normal saline as we plan to do an MRI with IV contrast today (3) MRSA bacteremia Impression: Third set of blood cultures are negative to date. I am reaching out to infectious disease today and and waiting on a call back at this time (4) Pilonidal abscess Impression: Continiue IV Linezolid (5) Cellulitis of buttock Impression: As above (6) Pneumonia Impression: She completed 5 days of IV Zosyn Qualifiers: Pneumonia type: due to unspecified organism Laterality: bilateral Lung location: unspecified part of lung Qualified Code(s): J18.9 - Pneumonia, unspecified organism (7) Adnexal mass Impression: Her creatinine has improved to the point that I believe we can safely get an MRI. I have ordered this for today and hopefully they can get it done. Will hydrate her with 1 L of normal saline today. (8) Acute metabolic encephalopathy Impression: Secondary to sepsis. Resolved (9) Hypertension Impression: Stable (10) Osteoporosis Impression: She will resume her home dose of Fosamax at home at discharge (11) Osteoarthritis Impression: She has no complaints of pain this morning. Her meloxicam has been held due to her acute kidney injury. 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 She has Tylenol available if needed (13) Anemia Impression: Stable (14) Hyponatremia Impression: Resolved
[2024-05-24] MEDS ORDERED: GADOTERATE MEGLUMINE 7.5 MMOL/15 ML VIAL ONE (11:29)
[2024-05-24] MEDS: GADOTERATE MEGLUMINE 7.5 MMOL/15 ML VIAL IVP ONE (12:22)
[2024-05-24] MEDS: SODIUM CHLORIDE 0.9% 1,000 ML IV SCH (13:43)
--- NOTE | 2024-05-24 13:57 | MRI Report ---
PROCEDURE: Pelvis W/WO INDICATIONS: Evaluate adnexa mass CONTRAST: CLARISCAN 12.0 ML TECHNIQUE: Coronal ultra fast SE, sagittal breath-hold T2 FSE; axial T1 FSE with and without fat saturation thro ugh the pelvis. Optional long- and short-axis uterine nonbreath-hold T2 FSE through the uterus. Sag ittal or axial dynamic ultra fast GE during administration of contrast. Post-contrast axial or coron al ultra fast GE / 2-D spoiled GE with fat saturation from the iliac crests to the symphysis. Option al diffusion weighted imaging and ADC may be performed. COMPARISON: CT 05/18/2024 FINDINGS: Image quality: Excellent. Uterus: Uterus is normal in size. Endometrium is normal in thickness. Junctional zone is normal in thickness at 12 mm or less. Adnexa: Right ovarian cyst without internal complexity measuring 3.6 x 2.7 cm (series 8, image 24). L eft ovarian cyst with thin internal septation measuring 2.5 x 2.1 cm (Series 8, image 21). Urinary system: Bladder wall is normal in thickness. Distal ureters are non distended. Urethra mikayla ears normal in morphology. Nodes and vessels: No pelvic or inguinal adenopathy by size criteria. Iliac vessels are normal in s ize. Bowel and peritoneum: No pathologic free pelvic fluid. Inferior colon and small bowel loops are nor mal in caliber. Colonic diverticulosis without evidence of diverticulitis. Soft tissues: No inguinal hernias. No findings of pelvic floor incompetence in the absence of provo cation. Mild presacral soft tissue edema, which is nonspecific. Bones: Marrow demonstrates normal overall signal. IMPRESSION: Bilateral ovarian cystic lesions without significant internal complexity. O-RADS 2. Colonic diverticulosis without evidence of diverticulitis. Reviewed by: Derrick Mota MD on 05/24/2024 1:56 PM PDT Approved by: Derrick Mota MD on 05/24/2024 1:56 PM PDT Station ID: [id number]
--- NOTE | 2024-05-24 17:12 | ANESTHESIA PROCEDURE NOTE ---
Anesth Central Line Template - Central Line Central Line Preparation: Consent Obtained, Time out completed, Ultrasound used, Sterile prep and drape Central line location: Right Cephalic Central line type: PICC Single Lumen (size 4 Polish, trimmed at 42 cm, 3 cm left exposed.) Central line catheter tip site resides: Superior vena cava (SVC) (via p-wave confirmation with teleflex, see scanned anesthesia record) Central line aftercare: Chlorhexidine disc placed, Secured (statlock), Placement confirmed (with p-wave maximal elevation), No complications, Bundle checklist complete, Pt tolerated well
[2024-05-25 05:32] LABS: BASOPHILS # (AUTO) 0.1 10^3/uL (0.0-0.1); BASOPHILS % (AUTO) 1.2 %; EOSINOPHILS # (AUTO) 0.9 10^3/uL (0.0-0.7); EOSINOPHILS % (AUTO) 7.1 %; HCT - HEMATOCRIT 25.5 % (37.0-47.0); HGB - HEMOGLOBIN 8.6 g/dL (12.0-16.0); LYMPHOCYTES # (AUTO) 1.5 10^3/uL (1.5-3.5); LYMPHOCYTES % (AUTO) 12.3 %; MEAN CORPUSCULAR HEMOGLOBIN 32.6 pg (27.0-31.0); MEAN CORPUSCULAR HGB CONC 33.7 g/dL (32.0-36.0); MEAN CORPUSCULAR VOLUME 96.6 fL (81.0-99.0); MEAN PLATELET VOLUME 9.8 fL (7.9-10.8); MONOCYTES # (AUTO) 0.9 10^3/uL (0.0-1.0); MONOCYTES % (AUTO) 7.4 %; NEUTROPHILS # (AUTO) 8.5 10^3/uL (1.5-6.6); PLT - PLATELET COUNT 334 10^3/uL (130-450); RED BLOOD COUNT 2.64 10^6/uL (4.20-5.40); RED CELL DISTRIBUTION WIDTH 13.4 % (12.0-15.0); WHITE BLOOD COUNT 12.1 x10^3/uL (4.8-10.8)
[2024-05-25] MEDS: HYDROmorphone 0.5 MG/0.5 ML SYRINGE IVP PRN (05:34)
[2024-05-25 05:47] LABS: ALBUMIN 2.8 g/dL (3.2-5.5); CALCIUM 8.5 mg/dL (8.5-10.3); CREATININE 1.5 mg/dL (0.6-1.3); MAGNESIUM 1.5 mg/dL (1.7-2.3); PHOSPHORUS 4.3 mg/dL (2.5-5.0); POTASSIUM 3.7 mmol/L (3.5-4.5)
[2024-05-25] MEDS ORDERED: MAGNESIUM SULFATE 4 GM in SODIUM CHLORIDE 0.9% 50 ML IV ONE (08:01)
[2024-05-25 09:07] VITALS: BP 118/59; O2SAT 92
[2024-05-25] MEDS: MAGNESIUM SULFATE 2 GRAM 2 GM/50 ML BAG IV ONE (10:00)
--- NOTE | 2024-05-25 10:18 | Discharge Plan ---
Discharge Plan Problem Reviewed?: Yes Disposition: [facility] DC/Xfer Condition: Stable Prescriptions: DAPTOmycin [Daptomycin] 500 mg IV Q48H 14 Days #10 ea Diet: Regular Activity Restrictions: No Restrictions Assistance Devices: Walker Plan of Treatment: You were admitted with a pilonidal cyst with some rounding cellulitis. You were septic at the time of admission and developed an infection in your bloodstream as a result. You have been treated and are improving. You need IV antibiotics through June 06, 2024. He will be discharged from the hospital and admit eneida to swing bed status to have continued wound care for your pilonidal cyst and to complete your antibiotic therapy. During this time when available you will see physical therapy and Occupational Therapy. After you get out of the hospital he should follow-up with your primary care physician. Also you had an MRI of the pelvis during this hospitalization to evaluate an abnormality noted on your ovaries. MRI revealed that these are benign cysts and no further intervention is necessary. Assessment: 1. Sepsis The patient had evidence of sepsis present at the time of admission. Blood cultures were positive for MRSA. During the course of this hospitalization her sepsis symptoms have improved. She is going to complete IV antibiotics through June 06, 2020 2. Acute kidney injury with acute tubular necrosis Multifactorial secondary to sepsis as well as contrast dye. Her creatinine is slowly improving and is down to 1.5 at the time of admission. Her kidney function will be closely monitored during her swing bed status as her daptomycin is dosed according to her creatinine clearance. Her baseline creatinine at the time of admission was 0.93. 3. MRSA bacteremia The patient's initial set of blood cultures was positive in 2 out of 2 bottles. The next day repeat blood cultures were obtained and she was positive in 1 out of 2 bottles. Her third set of blood cultures are negative to date. Due to the severity of her acute kidney injury her antibiotic therapy was initially changed to linezolid. I did obtain infectious disease consultation who r ecommended that linezolid is not the best choice of antibiotics. The recommendation was for renally dosed daptomycin and that she should have 2 weeks of antibiotic therapy from the date of her negative blood cultures. If her blood cultures remain negative she will complete her antibiotic therapy on 06/06/2024. Currently on daptomycin 500 mg every 48 hours which has been renally dosed based on her current creatinine clearance. Will follow labs closely during her swing bed stay to make sure we do not need to make adjustments. She has had a PICC line placed. 4. Pilonidal cyst with abscess This was drained in the emergency room. Culture grew MRSA. Continue IV daptomycin through June 06, 2024. She will need continued wound care during swing bed status 5. Cellulitis of the buttock Plan as outlined above 6. Pneumonia She was found to have evidence of an early pneumonia. She has been treated for MRSA during this entire hospitalization and she received 5 days of IV Zosyn. 7. Bilateral uncomplicated ovarian cysts The patient was noted to have an adnexal mass on initial CT scan. An MRI of the pelvis was recommended and we were finally able to obtain 1 yesterday. The MRI revealed bilateral uncomplicated ovarian cysts. No further workup is necessary 8. Acute metabolic encephalopathy Secondary to sepsis. Resolved 9. History of hypertension Currently on no medications and blood pressure is well-controlled 10. Osteoporosis She should continue her home dosing of Fosamax 11. Osteoarthritis Her meloxicam has been held due to her acute kidney injury. No complaints of pain at this point. 12. Pathologic fracture of thoracic vertebrae due to secondary osteoporosis this was an incidental finding on imaging studies. Again no complaints of pain. She should take Tylenol if needed for pain 13. Anemia Stable at the time of discharge 14. Hyponatremia Secondary to her acute illness. Resolved No Smoking: If you smoke, Please STOP! Call for help.
--- NOTE | 2024-05-25 10:34 | DISCHARGE SUMMARY ---
Discharge Summary Admit Date: 05/18/24 Discharge Date: 05/25/24 Discharging Provider: Ayana Rapp PA-C Primary Care Provider: Blank COUCH Code Status: Attempt Resuscitation Condition at Discharge: Stable Discharge Disposition: SNF DC/Xfer Discharge Facility Name: [facility] - DIAGNOSES Discharge Diagnoses with Status of Each Condition: 1. Sepsis The patient had evidence of sepsis present at the time of admission. Blood cultures were positive for MRSA. During the course of this hospitalization her sepsis symptoms have improved. She is going to complete IV antibiotics through June 06, 2020 2. Acute kidney injury with acute tubular necrosis Multifactorial secondary to sepsis as well as contrast dye. Her creatinine is slowly improving and is down to 1.5 at the time of admission. Her kidney function will be closely monitored during her swing bed status as her daptomycin is dosed according to her creatinine clearance. Her baseline creatinine at the time of admission was 0.93. 3. MRSA bacteremia The patient's initial set of blood cultures was positive in 2 out of 2 bottles. The next day repeat blood cultures were obtained and she was positive in 1 out of 2 bottles. Her third set of blood cultures are negative to date. Due to the severity of her acute kidney injury her antibiotic therapy was initially changed to linezolid. I did obtain infectious disease consultation who recommended that linezolid is not the best choice of antibiotics. The recommendation was for renally dosed daptomycin and that she should have 2 weeks of antibiotic therapy from the date of her negative blood cultures. If her blood cultures remain n egative she will complete her antibiotic therapy on 06/06/2024. Currently on daptomycin 500 mg every 48 hours which has been renally dosed based on her current creatinine clearance. Will follow labs closely during her swing bed stay to make sure we do not need to make adjustments. She has had a PICC line placed. 4. Pilonidal cyst with abscess This was drained in the emergency room. Culture grew MRSA. Continue IV daptomycin through June 06, 2024. She will need continued wound care during swing bed status 5. Cellulitis of the buttock Plan as outlined above 6. Pneumonia She was found to have evidence of an early pneumonia. She has been treated for MRSA during this entire hospitalization and she received 5 days of IV Zosyn. 7. Bilateral uncomplicated ovarian cysts The patient was noted to have an adnexal mass on initial CT scan. An MRI of the pelvis was recommended and we were finally able to obtain 1 yesterday. The MRI revealed bilateral uncomplicated ovarian cysts. No further workup is necessary at this time. She does have an elevated CA125 of 92.5. Would recommend repeat imaging with a pelvic ultrasound in 3 to 6 months. 8. Acute metabolic encephalopathy Secondary to sepsis. Resolved 9. History of hypertension Currently on no medications and blood pressure is well-controlled 10. Osteoporosis She should continue her home dosing of Fosamax 11. Osteoarthritis Her meloxicam has been held due to her acute kidney injury. No complaints of pain at this point. 12. Pathologic fracture of thoracic vertebrae due to secondary osteoporosis This was an incidental finding on imaging studies. Again no complaints of pain. She should take Tylenol if needed for pain 13. Anemia Stable at the time of discharge 14. Hyponatremia Secondary to her acute illness. Resolved - HPI History of Present Illness: From the admission HP: This patient is a 79 year-old female, with a past medical history of osteoarthritis, osteoporosis, and chronic back pain, who presented to the emergency department via ambulance after being found by a friend altered on her couch and covered in urine. Apparently, the neighbor saw the patient last night, came back this morning to check on her, and found her in the same position on her couch. Upon examination in the ED, she was found to have a pilonidal cyst/abscess with overlying cellulitis. A stab incision was made on the abscess, which drained little to no pus but tracks about 3-4 cm superior to the incision. She continues to be altered in the ED and appears to be in septic shock with concern for a potential necrotizing infection. She was started on fluid resuscitation and broad-spectrum antibiotics of vancomycin, clindamycin, and zosyn. Exam and history is limited as the patient is altered. She is oriented to person only and is unable to answer any other questions. She does verbalize pain when her pilonidal abscess site is examined. She is hypertensive at 170/72 with a respiratory rate of 31 in the ED. She was admitted earlier this month for pneumonia and sepsis, and her chest x-ray shows residual linear atelectasis/scar in the right midlung and a CT ABD/pelvis has been ordered. CRP is elevated at 19.9 and lactate is normal at 0.9. Her in February of this year and she currently lives alone at home. Per the [facility], she smoked in the past, but quit ~30 years ago, and will occasionally drink alcohol. - HOSPITAL COURSE Hospital Course: The patient was admitted to the hospital. She was found to have evidence of an infected pilonidal cyst with surrounding cellulitis. This was drained in the emergency room and cultures grew MRSA. Blood cultures were positive as well and 2 sets. Her third set of blood cultures is negative to date. During the course of this hospitalization the patient developed an acute kidney injury thought to be due to sepsis as well as ATN from contrast dye. Her creatinine has slowly improved and on the day of discharge is 1.5. Her baseline creatinine is 0.9. Infectious disease was consulted and the recommendation was to complete 2 weeks of IV antibiotic therapy. The patient is going to be transition to swing bed status to complete her IV antibiotic therapy and have ongoing wound care and receive some physical therapy and Occupational Therapy. Incidentally noted on imaging was a adnexal mass. Ca 125 was elevated at 92. The recommendation was for an MRI of the pelvis. This was obtained in the radiologist read these has bilateral simple cysts. At this point would simply recommend follow-up imaging in 3 to 6 months and will defer to her primary care physician to get this set up. At this point maximum hospital benefit has been reached. The patient will be transition to swing bed status today in stable condition. - ALLERGIES Allergies/Adverse Reactions: Allergies Allergy/AdvReac Type Severity Reaction Status Date / Time No Known Drug Allergies Allergy Verified 05/18/24 09:34 - MEDICATIONS Home Medications: Ambulatory Orders Medication Instructions Recorded Confirmed [place]-3/Dha/Epa/Fish Oil [Fish Oil 1 each PO DAILY 12/27/13 05/18/24 1,000 mg Softgel] cycloSPORINE [Restasis] 1 drops EACHEYE BID 03/11/20 05/18/24 Aspirin EC [Ecotrin] 81 mg PO DAILY #30 tablet 01/04/22 05/18/24 Alendronate [Fosamax] 70 mg PO MO 04/26/24 05/20/24 Calcitonin [Fortical] 1 spray NS DAILY 04/26/24 05/18/24 Calcium Carb ([place]) 500 mg PO BID tab 04/26/24 05/18/24 [[place]-500] Gabapentin [Neurontin] 300 mg PO TID 04/26/24 05/19/24 Acetaminophen [Tylenol] 650 mg PO Q4HR PRN tab 05/25/24 DAPTOmycin [Daptomycin] 500 mg IV Q48H 14 Days #10 ea 05/25/24 Famotidine [Pepcid] 20 mg PO QPM tab 05/25/24 Heparin [Heparin Sodium (Porcine)] 5,000 unit SUBQ BID ml 05/25/24 Loperamide [Imodium] 2 mg PO QID PRN cap 05/25/24 Mag Hydrox/Al Hydrox/Simeth 30 ml PO Q4HR PRN ea 05/25/24 [Mylanta Plus] Multivitamin W/Minerals [Theragran 1 tab PO DAILYWM tab 05/25/24 M] Saccharomyces Boulardii [Florastor] 250 mg PO BIDWM cap 05/25/24 polyethylene glycoL 3350 [Miralax] 17 gm PO DAILY packet 05/25/24 - PHYSICAL EXAM AT DISCHARGE General Appearance: positive: No acute distress Eyes Bilateral: positive: Normal inspection ENT: positive: Other (Mild bitemporal muscle wasting bilaterally) Neck: positive: Nml inspection Respiratory: positive: Chest non-tender, No respiratory distress, Breath sounds nml Cardiovascular: positive: Regular rate & rhythm, No murmur, No gallop. negative: Friction rub Abdomen: positive: Non-tender, No organomegaly, Nml bowel sounds Skin: positive: Color nml, No rash, Warm, Dry Neurologic/Psychiatric: positive: CN's nml (2-12) - LABS Result Diagrams: 05/25/24 05:21 05/25/24 05:21 - SEPSIS Current Stage of Sepsis: Sepsis Possible source of Sepsis: Wound Sepsis Criteria: Recorded Temperature greater than 38.3C or Less than 36C, Recorded Heart Rate greater than 90 bpm, Recorded Respiratory Rate greater than 20, WBC count greater than 12,000 or less than 4000, NURSE INFECTION CONTROL: altered consciousness (unrelated to primary neuro pathology) - FOLLOW UP Follow Up: The patient will follow-up with Blank Chávez NP when she is released from rehab. The hospitalist will be following her weekly during her swing bed stay. - TIME SPENT Time Spent in Discharge (Minutes): 45
[2024-05-25] MEDS: ALTEPLASE 2 MG VIAL IJ ONE (10:52)
[2024-05-25] MEDS ORDERED: CYCLOSPORINE EACHEYE SCH (21:00)
[2024-05-25] MEDS ORDERED: CALCIUM CARB (OYSTER SHELL) 500 MG TABLET PO SCH (21:00)
[2024-05-26] MEDS ORDERED: FISH OIL PO SCH (09:00)
[2024-05-26] MEDS ORDERED: OMEGA PO SCH (09:00)
[2024-05-26] MEDS ORDERED: EPA PO SCH (09:00)
[2024-05-26] MEDS ORDERED: DHA PO SCH (09:00)
[2024-05-27] MEDS ORDERED: ALENDRONATE 70 MG TABLET PO SCH (07:00)
== END 2024-05-25 11:14 | disposition swing bed (61) | DRG 871 ==
LOC: EDUNIT# → ED 09:23 → MS2 10:35
PROVIDERS: ADMIT Physician Assistant Medical; ATTEND Physician Assistant
PROC: 02HV33Z Insertion of Infusion Device into Superior Vena Cava, Percutaneous Approach (ICD-10-PCS; principal; 2024-05-24)
DX: A41.9 Sepsis, unspecified organism (principal); A41.02 Sepsis due to Methicillin resistant Staphylococcus aureus; G93.41 Metabolic encephalopathy; R65.21 Severe sepsis with septic shock; R00.0 Tachycardia, unspecified; N17.0 Acute kidney failure with tubular necrosis; J18.9 Pneumonia, unspecified organism; L05.01 Pilonidal cyst with abscess; L03.317 Cellulitis of buttock; M80.88XA Other osteoporosis with current pathological fracture, vertebra(e), initial encounter for fracture; E87.1 Hypo-osmolality and hyponatremia; N83.202 Unspecified ovarian cyst, left side; N83.201 Unspecified ovarian cyst, right side; I10 Essential (primary) hypertension; D64.9 Anemia, unspecified; G89.29 Other chronic pain; M54.9 Dorsalgia, unspecified; T50.8X5A Adverse effect of diagnostic agents, initial encounter; Y92.239 Unspecified place in hospital as the place of occurrence of the external cause; Z87.891 Personal history of nicotine dependence; M19.90 Unspecified osteoarthritis, unspecified site; R19.7 Diarrhea, unspecified; R35.0 Frequency of micturition; R32 Unspecified urinary incontinence; R97.1 Elevated cancer antigen 125 [CA 125]
CPT/HCPCS: 10080; 36415; 71045; 71260; 72197; 74177; 76770; 80048; 80053; 80069; 80076; 81001; 82550; 83605; 83735; 83880; 85025; 86140; 86304; 87040; 87070; 87154; 87181; 87205; 87493; 93005; 93307; 97162; 97166; 97530; 97535; 99285; A9270; C1751; J0878; J1170; J2020; J3370; Q9967; 87086

== ENCOUNTER 2024-05-24 11:39 | Inpatient (IN) | payer MEDICARE ==
[2024-05-25] MEDS ORDERED: LOPERAMIDE 2 MG CAPSULE PO PRN (11:18)
[2024-05-25] MEDS ORDERED: MAG HYDROX/AL HYDROX/SIMETH 30 ML UDC PO PRN (11:18)
[2024-05-25] MEDS ORDERED: DAPTOMYCIN 500 MG IV SCH (11:30)
[2024-05-25] MEDS: GABAPENTIN 300 MG CAPSULE PO SCH (14:28)
--- NOTE | 2024-05-25 15:06 | HISTORY & PHYSICAL EXAMINATION ---
Chief Complaint - Chief Complaint Chief Complaint: Need for IV antibiotics and wound care History of Present Illness - Admitted From Admitted From:: Inpatient - History of Present Illness HPI Comment/Other: The patient is a 79-year-old female who was admitted to the hospital initially for a pilonidal cyst with surrounding cellulitis. She had developed an abscess. At the time of admission she was septic with positive blood cultures for MRSA. During her previous hospitalization infectious disease was consulted and recommended 2 weeks of IV daptomycin from the date of her negative blood cultures. She is being admitted to swing bed status for physical therapy, Occupational Therapy, IV antibiotics and wound care. History - Past Medical History Cardiovascular: reports: None Respiratory: reports: None Neuro: reports: CVA Endocrine/Autoimmune: reports: None GI: reports: None TUB MENDER: reports: None : reports: None HEENT: reports: None Psych: reports: None Musculoskeletal: reports: Osteoarthritis, Osteoporosis, Chronic back pain Derm: reports: Other MRSA Hx?: No - Past Surgical History General: reports: Colonoscopy HEENT: reports: Tonsil/Adenoidectomy Derm: reports: Skin cancer surgery - Family & Social History Family History: Mother: CVA/TIA (), Father: Alcoholism () Family History Comment/Other: She reports her mother had a history of a stroke. Her brother passed with the age of 50 from a myocardial infarction. Living Situation: Alone Social History Notes: Alexis of complications related to DM on February 17, 2024. She had a remote smoking history but quit over 30 years ago. She will have an occasional alcoholic beverage. - Substance History Use: Uses substance without health or social issues: NONE - POLST Patient has POLST: No Meds/Allgy - Home Medications Home Medications: Ambulatory Orders Medication Instructions Recorded Confirmed [place]-3/Dha/Epa/Fish Oil [Fish Oil 1 each PO DAILY 12/27/13 05/18/24 1,000 mg Softgel] cycloSPORINE [Restasis] 1 drops EACHEYE BID 03/11/20 05/18/24 Aspirin EC [Ecotrin] 81 mg PO DAILY #30 tablet 01/04/22 05/18/24 Alendronate [Fosamax] 70 mg PO MO 04/26/24 05/20/24 Calcitonin [Fortical] 1 spray NS DAILY 04/26/24 05/18/24 Calcium Carb (Oyster Shell) 500 mg PO BID tab 04/26/24 05/18/24 [[place]-500] Gabapentin [Neurontin] 300 mg PO TID 04/26/24 05/19/24 Acetaminophen [Tylenol] 650 mg PO Q4HR PRN tab 05/25/24 DAPTOmycin [Daptomycin] 500 mg IV Q48H 14 Days #10 ea 05/25/24 Famotidine [Pepcid] 20 mg PO QPM tab 05/25/24 Heparin [Heparin Sodium (Porcine)] 5,000 unit SUBQ BID ml 05/25/24 Loperamide [Imodium] 2 mg PO QID PRN cap 05/25/24 Mag Hydrox/Al Hydrox/Simeth 30 ml PO Q4HR PRN ea 05/25/24 [Mylanta Plus] Multivitamin W/Minerals [Theragran 1 tab PO DAILYWM tab 05/25/24 M] Saccharomyces Boulardii [Florastor] 250 mg PO BIDWM cap 05/25/24 polyethylene glycoL 3350 [Miralax] 17 gm PO DAILY packet 05/25/24 - Allergies Allergies/Adverse Reactions: Allergies Allergy/AdvReac Type Severity Reaction Status Date / Time No Known Drug Allergies Allergy Verified 05/18/24 09:34 Review of Systems - Integumentary Integumentary: reports: Other (The patient has pain and some ongoing mild drainage from her pilonidal cyst.) - All Other Systems All Other Systems: reports: Reviewed and negative Prior Level of Functionality: The patient was previously fully functional with her ADLs. Currently walking with a rolling walker independently. Exam - Vital Signs Reviewed Vital Signs: Yes - Physical Exam General Appearance: positive: No acute distress Eyes Bilateral: positive: Normal inspection ENT: positive: ENT inspection nml Respiratory: positive: Chest non-tender, No respiratory distress, Breath sounds nml Cardiovascular: positive: Regular rate & rhythm, No murmur, No gallop. negative: Friction rub Abdomen: positive: Non-tender, No organomegaly, Nml bowel sounds Skin: positive: Other (The patient's pilonidal cyst was not examined on the day of admission.) Extremities: positive: Non-tender, Full ROM Neurologic/Psychiatric: positive: Oriented x3, CN's nml (2-12) Conclusion/Plan - Problem List (1) MRSA bacteremia Conclusion/Plan: The patient will need 2 weeks of IV daptomycin from the date of her negative cultures. Currently that would be through June 06, 2024. Will continue to check chemistry panels daily as her daptomycin needs to be renally dosed. Otherwise we will check a weekly CBC, liver panel, CK level and magnesium level. The patient has a PICC line in place that will need to be removed at the end of therapy (2) Acute kidney injury (LEROY) with acute tubular necrosis (ATN) Conclusion/Plan: The patient had an acute kidney injury with ATN during this previous hospitalization. Her kidney function is slowly improving. Will continue daily chemistry panels as her daptomycin dosing is based on her creatinine clearance. (3) Pilonidal abscess Conclusion/Plan: Still with some drainage. Continue local wound care with wet-to-dry dressing changes. The wound should be cleaned with normal saline daily (4) Osteoporosis Conclusion/Plan: The patient takes Fosamax at home (5) Osteoarthritis Conclusion/Plan: The patient has had no complaints of pain recently. 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 She has Tylenol available if needed. This was incidentally noted on imaging studies during her previous hospitalization (7) Anemia Conclusion/Plan: This is drifted down since the beginning of her previous hospitalization. However this is likely due to multiple blood draws and hemodilution. She will be on no further IV fluids. Will check weekly CBCs. Disposition: The patient will be admitted to [facility]. She will receive physical therapy and Occupational Therapy services. Wound care and ongoing IV antibiotics. Time spent: 45 minutes
[2024-05-25] MEDS: ACETAMINOPHEN 325 MG TABLET PO PRN (15:33)
[2024-05-25] MEDS: SODIUM CHLORIDE FLUSH 0.9% 10 ML SYRINGE IVP SCH (16:01)
[2024-05-25] MEDS: SACCHAROMYCES BOULARDII 250 MG CAPSULE PO SCH (16:50)
[2024-05-25] MEDS: CALCIUM CARB (OYSTER SHELL) 500 MG TABLET PO SCH (20:46)
[2024-05-25] MEDS: FAMOTIDINE 20 MG TABLET PO SCH (20:46)
[2024-05-25] MEDS: HEPARIN 5,000 UNIT/ML VIAL SUBQ SCH (20:47)
[2024-05-25] MEDS ORDERED: CYCLOSPORINE EACHEYE SCH (21:00)
[2024-05-26 06:26] LABS: ALBUMIN 3.1 g/dL (3.2-5.5); CALCIUM 9.4 mg/dL (8.5-10.3); CREATININE 1.6 mg/dL (0.6-1.3); PHOSPHORUS 4.1 mg/dL (2.5-5.0); POTASSIUM 4.1 mmol/L (3.5-4.5)
[2024-05-26] MEDS: ASPIRIN EC 81 MG TABLET PO SCH (10:06)
[2024-05-26] MEDS: MULTIVITAMIN W/MINERALS TABLET PO SCH (10:07)
[2024-05-26] MEDS: OMEGA-3 ACID ETHYL ESTERS 1 GM CAPSULE PO SCH (10:07)
[2024-05-26] MEDS: polyethylene glycoL 3350 17 GM PACKET PO SCH (10:07)
--- NOTE | 2024-05-26 13:25 | PHARMACY PROGRESS NOTE ---
- Best Possible Medication History Admit Date and Time: 05/25/24 1116 Medication History completed: Yes Patient Interview: Pt unable to participate Secondary Source(s): Pharmacy records (PER PREVIOUS [facility] [id number] REVIEW AND SURESCRIPTS RECORDS ), Previous admit records As the person ultimately responsible for medication therapy, providers are able to order a medication from an existing home medication list in [facility] via the "Reconcile Routine" prior to Confirmation of that medication by administrative support technician. Such practice is discouraged except when the physician, in their clinical judgment, deems that a medical need exists for a medication without regard to previous use.
[2024-05-27 05:35] LABS: BASOPHILS # (AUTO) 0.2 10^3/uL (0.0-0.1); BASOPHILS % (AUTO) 1.1 %; EOSINOPHILS # (AUTO) 0.7 10^3/uL (0.0-0.7); EOSINOPHILS % (AUTO) 4.9 %; HCT - HEMATOCRIT 27.1 % (37.0-47.0); HGB - HEMOGLOBIN 8.7 g/dL (12.0-16.0); LYMPHOCYTES # (AUTO) 1.6 10^3/uL (1.5-3.5); LYMPHOCYTES % (AUTO) 10.7 %; MEAN CORPUSCULAR HEMOGLOBIN 31.9 pg (27.0-31.0); MEAN CORPUSCULAR HGB CONC 32.1 g/dL (32.0-36.0); MEAN CORPUSCULAR VOLUME 99.3 fL (81.0-99.0); MEAN PLATELET VOLUME 9.9 fL (7.9-10.8); MONOCYTES # (AUTO) 1.4 10^3/uL (0.0-1.0); MONOCYTES % (AUTO) 9.3 %; NEUTROPHILS # (AUTO) 10.4 10^3/uL (1.5-6.6); NEUTROPHILS % (AUTO) 70.8 %; PLT - PLATELET COUNT 375 10^3/uL (130-450); RED BLOOD COUNT 2.73 10^6/uL (4.20-5.40); RED CELL DISTRIBUTION WIDTH 13.2 % (12.0-15.0); WHITE BLOOD COUNT 14.7 x10^3/uL (4.8-10.8)
[2024-05-27 05:50] LABS: ALBUMIN 3.2 g/dL (3.2-5.5); ALKALINE PHOSPHATASE 177 IU/L (42-121); ALT ALANINE AMINOTRANSFERASE 27 IU/L (10-60); AST ASPARTATE AMINOTRANSFERASE 24 IU/L (10-42); BILIRUBIN,DIRECT < 0.10 mg/dL (0.03-0.18); BILIRUBIN,TOTAL 0.5 mg/dL (0.2-1.0); BUN - BLOOD UREA NITROGEN 15 mg/dL (6-20); CARBON DIOXIDE - CO2 31 mmol/L (21-32); CHLORIDE 100 mmol/L (101-111); CK- CREATINE KINASE 47 IU/L (30-223); CREATININE 1.4 mg/dL (0.6-1.3); GFR - MDRD 36 (>89); GLUCOSE 96 mg/dL (74-104); MAGNESIUM 1.6 mg/dL (1.7-2.3); POTASSIUM 3.6 mmol/L (3.5-4.5); SODIUM 139 mmol/L (135-145); TOTAL PROTEIN 6.3 g/dL (6.4-8.9)
[2024-05-27] MEDS: ALENDRONATE 70 MG TABLET PO SCH (06:40)
[2024-05-27] MEDS: MAGNESIUM SULFATE 2 GRAM 2 GM/50 ML BAG IV ONE (09:14)
[2024-05-28 06:26] LABS: ALBUMIN 3.2 g/dL (3.2-5.5); CALCIUM 9.9 mg/dL (8.5-10.3); CREATININE 1.3 mg/dL (0.6-1.3); MAGNESIUM 1.6 mg/dL (1.7-2.3); PHOSPHORUS 4.3 mg/dL (2.5-5.0); POTASSIUM 3.3 mmol/L (3.5-4.5)
[2024-05-28] MEDS: MAGNESIUM OXIDE 400 MG TABLET PO SCH (16:19)
[2024-05-29 06:23] LABS: ALBUMIN 3.1 g/dL (3.2-5.5); CALCIUM 9.4 mg/dL (8.5-10.3); CREATININE 1.2 mg/dL (0.6-1.3); MAGNESIUM 1.6 mg/dL (1.7-2.3); PHOSPHORUS 4.4 mg/dL (2.5-5.0); POTASSIUM 3.4 mmol/L (3.5-4.5)
--- NOTE | 2024-05-29 11:09 | PROVIDER PROGRESS NOTE ---
Subjective - Prog Note Date Prog Note Date: 05/29/24 Prog Note Time: 11:09 - Subjective Pt reports feeling: Improved Subjective: She has done well today she has been out walking in the [place]. She wants to eat her meals tomorrow in the lobby facing the [place]. Her son-in-law [place] been able [place] she will go home to [place]. She needs IV antibiotics through the . She has not had any fever. She has not had any dysuria. She has an occasional cough, she is not having any abdominal pain. She is not having any diarrhea. There are no issues with her wound. Current Medications - Current Medications Current Medications: Medications Aspirin (Aspirin Ec 81 Mg Tablet) 81 mg PO DAILY [facility] Last Admin: 05/29/24 08:55 Dose: 81 mg Gabapentin (Gabapentin 300 Mg Capsule) 300 mg PO TID [facility] Last Admin: 05/29/24 13:55 Dose: 300 mg Heparin Sodium (Porcine) (Heparin 5,000 Unit/Ml Vial) 5,000 unit SUBQ BID [facility] Last Admin: 05/29/24 08:55 Dose: 5,000 unit Multivitamins/Minerals (Multivitamin W/Minerals Tablet) 1 tab PO DAILYWM [facility] Last Admin: 05/29/24 08:55 Dose: 1 tab Acetaminophen (Acetaminophen 325 Mg Tablet) 650 mg PO Q4HR PRN PRN Reason: Pain 1 to 4, or Fever Last Admin: 05/28/24 09:04 Dose: 650 mg Al Hydroxide/Mg Hydroxide (Mag Hydrox/Al Hydrox/Simeth 30 Ml Udc) 30 ml PO Q4HR PRN PRN Reason: INDIGESTION Alendronate Sodium (Alendronate 70 Mg Tablet) 70 mg PO MO [facility] Last Admin: 05/27/24 06:40 Dose: 70 mg Calcium Carbonate/Glycine (Calcium Carb (Oyster Shell) 500 Mg Tablet) 500 mg PO BID [facility] Last Admin: 05/29/24 08:55 Dose: 500 mg Daptomycin 500 mg/ Sodium (Chloride) 100 mls @ 200 mls/hr IV Q24H [facility] Famotidine (Famotidine 20 Mg Tablet) 20 mg PO QPM [facility] Last Admin: 05/28/24 21:04 Dose: 20 mg Loperamide HCl (Loperamide 2 Mg Capsule) 2 mg PO QID PRN PRN Reason: Diarrhea Magnesium Oxide (Magnesium Oxide 400 Mg Tablet) 400 mg PO DAILYWM [facility] Last Admin: 05/29/24 08:55 Dose: 400 mg [id number] Ethyl Esters ([place]-3 Acid Ethyl Esters 1 Gm Capsule) 1 gm PO DAILY [facility] Last Admin: 05/29/24 08:55 Dose: 1 gm Polyethylene Glycol (Polyethylene Glycol 3350 17 Gm Packet) 17 gm PO DAILY [facility] Last Admin: 05/29/24 08:55 Dose: 17 gm Saccharomyces Boulardii (Saccharomyces Boulardii 250 Mg Capsule) 250 mg PO BIDWM [facility] Last Admin: 05/29/24 08:55 Dose: 250 mg Objective - Vital Signs/Intake & Output Vital Signs: Vital Signs x48h Temp Pulse Resp BP Pulse Ox 05/29/24 08:03 37.0 C 63 18 147/82 H 95 Intake & Output: Intake & Output 05/26/24 05/27/24 05/28/24 05/29/24 23:59 23:59 23:59 23:59 Intake Total 9750 911 2890 240 Output Total 550 450 Balance 9180 905 4655 -210 - Objective General Appearance: positive: No acute distress Eyes Bilateral: positive: Normal inspection ENT: positive: ENT inspection nml Neck: positive: Nml inspection Cardiovascular: positive: Regular rate & rhythm, No murmur Abdomen: positive: Non-tender, No distention Back: positive: Nml inspection Skin: positive: Other (wound looks clean without edema, erythema, tenderness. there is fibrinous slough with minimal serouse discharge) Extremities: positive: Non-tender, No pedal edema Neurologic/Psychiatric: positive: Oriented x3 - Lab Results Fish Bones: 05/29/24 11:40 05/29/24 05:55 Other Labs: Lab Results x24hrs 05/29/24 Range/Units 05:55 Sodium 138 (135-145) mmol/L Potassium 3.4 L (3.5-4.5) mmol/L Chloride 100 L (101-111) mmol/L Carbon Dioxide 31 (21-32) mmol/L Anion Gap 7.0 (6-13) BUN 16 (6-20) mg/dL Creatinine 1.2 (0.6-1.3) mg/dL Estimated GFR (MDRD) 44 L (>89) Glucose 99 (74-104) mg/dL Calcium 9.4 (8.5-10.3) mg/dL Phosphorus 4.4 (2.5-5.0) mg/dL Magnesium 1.6 L (1.7-2.3) mg/dL Albumin 3.1 L (3.2-5.5) g/dL ABX Reporting Has patient been on IV antibiotics over the past 48 hours?: Yes Assessment/Plan - Problem List (1) MRSA bacteremia Impression: (1) MRSA bacteremia Conclusion/Plan: The patient will need 2 weeks of IV daptomycin from the date of her negative cultures. Currently that would be through June 06, 2024. Will continue to check chemistry panels daily as her daptomycin needs to be renally dosed. Otherwise we will check a weekly CBC, liver panel, CK level and magnesium level. The patient has a PICC line in place that will need to be removed at the end of therapy. I checked a CBC today as I like to review and examine all swing bed patients on Wednesdays. Her WBC count is elevated. (2) Leukocytosis Good question she has had a leukocytosis on and off. It has been about a week since her white blood cell count was normal. 2 days ago it was 14.7 and today it is 26.2. This is a remarkable increase. Per her review of systems she does not have any symptoms of infection. Per her physical exam I do not see any signs of infection. I am going to repeat her white count tomorrow and if it remains elevated I we will check a chest x-ray and a urine culture. (2) Acute kidney injury (LEROY) with acute tubular necrosis (ATN) Conclusion/Plan: The patient had an acute kidney injury with ATN during this previous hospitalization. Her kidney function is slowly improving. Will continue daily chemistry panels as her daptomycin dosing is based on her creatinine clearance. Her creatinine is 1.2 today. Her potassium is mildly low. 3.4. I will start her on 20 mill equivalents of p.o. potassium a day. (3) Pilonidal abscess Conclusion/Plan: Still with some drainage. Continue local wound care with wet-to-dry dressing changes. The wound should be cleaned with normal saline daily. I examined the wound today. There is does not appear to be any recurrence of infection there. (4) Osteoporosis Conclusion/Plan: The patient takes Fosamax at home. Her Fosamax has been continued. (5) Osteoarthritis Conclusion/Plan: The patient has had no complaints of pain recently. She previously was on meloxicam which has been held due to her acute kidney injury. 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 She has Tylenol available if needed. This was incidentally noted on imaging studies during her previous hospitalization (7) Anemia Conclusion/Plan: This is drifted down since the beginning of her previous hospitalization. However this is likely due to multiple blood draws and hemodilution. She will be on no further IV fluids. Hemoglobin is 9.7 today. Disposition: She remains in swing bed status through the end of her IV antibiotics which is scheduled for 06/06.. She will receive physical therapy and Occupational Therapy services. Wound care and ongoing IV antibiotics.I will repeat the CBC in the morning to follow-up on her leukocytosis. Time spent: 45 minutes
[2024-05-29 11:57] LABS: BASOPHILS % (AUTO) 1.1 %; HCT - HEMATOCRIT 29.9 % (37.0-47.0); HGB - HEMOGLOBIN 9.7 g/dL (12.0-16.0); MEAN CORPUSCULAR HEMOGLOBIN 32.1 pg (27.0-31.0); MEAN CORPUSCULAR HGB CONC 32.4 g/dL (32.0-36.0); MEAN PLATELET VOLUME 9.5 fL (7.9-10.8); MONOCYTES % (AUTO) 8.2 %; NEUTROPHILS % (AUTO) 77.5 %; PLT - PLATELET COUNT 483 10^3/uL (130-450); RED BLOOD COUNT 3.02 10^6/uL (4.20-5.40); RED CELL DISTRIBUTION WIDTH 13.1 % (12.0-15.0); WHITE BLOOD COUNT 26.2 x10^3/uL (4.8-10.8)
[2024-05-29 12:05] LABS: ABNORMAL LYMPHS % (MANUAL) 0 %
[2024-05-29 12:13] LABS: BAND NEUTROPHILS % (MANUAL) 2 %; DIFFERENTIAL COMMENT MANUAL DIFFERENTIAL; EOSINOPHILS # (MANUAL) 0.8 10^3/uL (0-0.7); LYMPHOCYTES # (MANUAL) 2.4 10^3/uL (1.5-3.5); LYMPHOCYTES % (MANUAL) 8 %; MONOCYTES # (MANUAL) 2.6 10^3/uL (0.0-1.0); NEUTROPHILS # (MANUAL) 20.4 10^3/uL (1.5-6.6); RBC MORPHOLOGY (MULTIPLE) 2+ ANISOCYTOSIS (NORMAL); REACTIVE LYMPHS % (MANUAL) 1 %
[2024-05-30 06:03] LABS: BASOPHILS # (AUTO) 0.2 10^3/uL (0.0-0.1); BASOPHILS % (AUTO) 0.9 %; EOSINOPHILS # (AUTO) 0.4 10^3/uL (0.0-0.7); HCT - HEMATOCRIT 27.4 % (37.0-47.0); HGB - HEMOGLOBIN 8.9 g/dL (12.0-16.0); LYMPHOCYTES # (AUTO) 1.3 10^3/uL (1.5-3.5); LYMPHOCYTES % (AUTO) 6.2 %; MEAN CORPUSCULAR HEMOGLOBIN 32.5 pg (27.0-31.0); MEAN CORPUSCULAR HGB CONC 32.5 g/dL (32.0-36.0); MEAN PLATELET VOLUME 9.3 fL (7.9-10.8); MONOCYTES # (AUTO) 1.9 10^3/uL (0.0-1.0); MONOCYTES % (AUTO) 9.1 %; NEUTROPHILS # (AUTO) 16.9 10^3/uL (1.5-6.6); NEUTROPHILS % (AUTO) 79.5 %; PLT - PLATELET COUNT 470 10^3/uL (130-450); RED BLOOD COUNT 2.74 10^6/uL (4.20-5.40); RED CELL DISTRIBUTION WIDTH 13.3 % (12.0-15.0); WHITE BLOOD COUNT 21.3 x10^3/uL (4.8-10.8)
[2024-05-30 06:16] LABS: ALBUMIN 3.2 g/dL (3.2-5.5); CALCIUM 9.7 mg/dL (8.5-10.3); CREATININE 1.1 mg/dL (0.6-1.3); MAGNESIUM 1.6 mg/dL (1.7-2.3); POTASSIUM 3.4 mmol/L (3.5-4.5)
[2024-05-30 06:41] LABS: PLATELET ESTIMATE, MANUAL INCREASED (>450,000) (NORMAL); RBC MORPHOLOGY (MULTIPLE) 1+ MACROCYTOSIS (NORMAL)
[2024-05-30 06:42] LABS: DIFFERENTIAL COMMENT MANUAL=AUTO DIFF
--- NOTE | 2024-05-30 14:55 | XRAY Report ---
PROCEDURE: Chest 1V INDICATIONS: elevated wbc TECHNIQUE: One view of the chest was acquired. COMPARISON: 05/21/2024. FINDINGS: Surgical changes and devices: Right-sided PICC line tip is in SVC. Lungs and pleura: No pleural effusions or pneumothorax. Subtle ill-defined airspace opacities are se en in right upper lung field extending to right hilar region. Left lung is clear.. Mediastinum: Mediastinal contours appear normal. Heart size is normal. Bones and chest wall: No suspicious bony lesions. Overlying soft tissues appear unremarkable. IMPRESSION: Finding is concerning for small right upper lobe infiltrates. No pleural effusion or pneumothorax. Reviewed by: Jeremy Funes MD on 05/30/2024 2:54 PM PDT Approved by: Jeremy Funes MD on 05/30/2024 2:54 PM PDT Station ID: [id number]
--- NOTE | 2024-05-30 17:46 | PROVIDER PROGRESS NOTE ---
Subjective - Prog Note Date Prog Note Date: 05/30/24 Prog Note Time: 17:44 - Subjective Pt reports feeling: Worse Subjective: She feels generally a little bit weaker today. She however has been able to walk in the [place]. She was in the bathroom unattended when she felt dizzy and was able to sit herself down on the floor. She has no pain associated with this. She is sitting up in bed putting on her make-up today. She is concerned about her white blood cell count as am I. She has not run any fevers. She is not having any dysuria. She denies cough. Current Medications - Current Medications Current Medications: Medications Heparin Sodium (Porcine) (Heparin 5,000 Unit/Ml Vial) 5,000 unit SUBQ BID [facility] Last Admin: 05/30/24 10:01 Dose: 5,000 unit Loperamide HCl (Loperamide 2 Mg Capsule) 2 mg PO QID PRN PRN Reason: Diarrhea [id number] Ethyl Esters ([place]-3 Acid Ethyl Esters 1 Gm Capsule) 1 gm PO DAILY [facility] Last Admin: 05/30/24 09:14 Dose: 1 gm Magnesium Oxide (Magnesium Oxide 400 Mg Tablet) 400 mg PO DAILYWM [facility] Last Admin: 05/30/24 09:15 Dose: 400 mg Multivitamins/Minerals (Multivitamin W/Minerals Tablet) 1 tab PO DAILYWM [facility] Last Admin: 05/30/24 09:15 Dose: 1 tab Acetaminophen (Acetaminophen 325 Mg Tablet) 650 mg PO Q4HR PRN PRN Reason: Pain 1 to 4, or Fever Last Admin: 05/30/24 16:29 Dose: 650 mg Al Hydroxide/Mg Hydroxide (Mag Hydrox/Al Hydrox/Simeth 30 Ml Udc) 30 ml PO Q4HR PRN PRN Reason: INDIGESTION Aspirin (Aspirin Ec 81 Mg Tablet) 81 mg PO DAILY [facility] Last Admin: 05/30/24 09:15 Dose: 81 mg Azithromycin 500 mg/ Sodium (Chloride) 250 mls @ 250 mls/hr IV DAILY [facility] Stop: 06/02/24 09:59 Calcium Carbonate/Glycine (Calcium Carb (Oyster Shell) 500 Mg Tablet) 500 mg PO BID [facility] Last Admin: 05/30/24 09:15 Dose: 500 mg Ceftriaxone Sodium 1 gm/ (Sodium Chloride) 100 mls @ 200 mls/hr IV DAILY [facility] Stop: 06/04/24 09:29 Daptomycin 500 mg/ Sodium (Chloride) 100 mls @ 200 mls/hr IV Q24H [facility] Last Admin: 05/30/24 16:23 Dose: Infused Famotidine (Famotidine 20 Mg Tablet) 20 mg PO QPM [facility] Last Admin: 05/29/24 20:48 Dose: 20 mg Gabapentin (Gabapentin 300 Mg Capsule) 300 mg PO TID [facility] Last Admin: 05/30/24 14:28 Dose: 300 mg Polyethylene Glycol (Polyethylene Glycol 3350 17 Gm Packet) 17 gm PO DAILY [facility] Last Admin: 05/30/24 09:17 Dose: Not Given Saccharomyces Boulardii (Saccharomyces Boulardii 250 Mg Capsule) 250 mg PO BIDWM [facility] Last Admin: 05/30/24 16:29 Dose: 250 mg Objective - Vital Signs/Intake & Output Vital Signs: Vital Signs x48h Temp Pulse Resp BP Pulse Ox 05/30/24 16:38 36.3 C L 68 16 124/73 93 05/30/24 09:54 36.6 C 71 135/95 H 94 Intake & Output: Intake & Output 05/27/24 05/28/24 05/29/24 05/30/24 23:59 23:59 23:59 23:59 Intake Total 530 2092 1150 880 Output Total 550 450 800 Balance 530 1542 700 80 - Objective General Appearance: positive: No acute distress, Alert Eyes Bilateral: positive: Normal inspection ENT: positive: ENT inspection nml Neck: positive: Nml inspection Respiratory: positive: Breath sounds nml Cardiovascular: positive: Regular rate & rhythm Abdomen: positive: Non-tender Skin: positive: Color nml Extremities: positive: Non-tender Neurologic/Psychiatric: positive: Oriented x3 - Lab Results Fish Bones: 05/30/24 05:45 05/30/24 05:45 Other Labs: Lab Results x24hrs 05/30/24 05/30/24 Range/Units 05:45 05:45 WBC 21.3 H (4.8-10.8) x10^3/uL RBC 2.74 L (4.20-5.40) 10^6/uL Hgb 8.9 L (12.0-16.0) g/dL Hct 27.4 L (37.0-47.0) % MCV 100.0 H (81.0-99.0) fL MCH 32.5 H (27.0-31.0) pg MCHC 32.5 (32.0-36.0) g/dL RDW 13.3 (12.0-15.0) % Plt Count 470 H (130-450) 10^3/uL MPV 9.3 (7.9-10.8) fL Neut # (Auto) 16.9 H (1.5-6.6) 10^3/uL Lymph # (Auto) 1.3 L (1.5-3.5) 10^3/uL [place] # (Auto) 1.9 H (0.0-1.0) 10^3/uL Eos # (Auto) 0.4 (0.0-0.7) 10^3/uL Baso # (Auto) 0.2 H (0.0-0.1) 10^3/uL Absolute Nucleated RBC 0.00 x10^3/uL Band Neuts % (Manual) Not Reportable Abnorm Lymph % (Manual) Not Reportable Nucleated RBC % 0.0 /100WBC Neutrophils # (Manual) Not Reportable Lymphocytes # (Manual) Not Reportable Monocytes # (Manual) Not Reportable Eosinophils # (Manual) Not Reportable Basophils # (Manual) Not Reportable Differential Comment MANUAL=AUTO DIFF Platelet Estimate INCREASED (>450,000) (NORMAL) RBC Morph Micro Appear 1+ MACROCYTOSIS (NORMAL) Sodium 138 (135-145) mmol/L Potassium 3.4 L (3.5-4.5) mmol/L Chloride 101 (101-111) mmol/L Carbon Dioxide 29 (21-32) mmol/L Anion Gap 8.0 (6-13) BUN 19 (6-20) mg/dL Creatinine 1.1 (0.6-1.3) mg/dL Estimated GFR (MDRD) 48 L (>89) Glucose 102 (74-104) mg/dL Calcium 9.7 (8.5-10.3) mg/dL Phosphorus 4.0 (2.5-5.0) mg/dL Magnesium 1.6 L (1.7-2.3) mg/dL Albumin 3.2 (3.2-5.5) g/dL - Diagnostic Imaging Diagnostic Imaging Results: positive: Final report reviewed Diagnostic Imaging Comments: Chest x-ray: Concerning for small right upper lobe infiltrates per radiologist ABX Reporting Has patient been on IV antibiotics over the past 48 hours?: Yes Sepsis Event Note (H) - Sepsis Criteria Sepsis Criteria: WBC count greater than 12,000 or less than 4000 Assessment/Plan - Problem List (1) MRSA bacteremia Impression: The patient will need 2 weeks of IV daptomycin from the date of her negative cultures. Currently that would be through June 06, 2024. Will continue to check chemistry panels daily as her daptomycin needs to be renally dosed. Otherwise we will check a weekly CBC, liver panel, CK level and magnesium level. The patient has a PICC line in place that will need to be removed at the end of therapy. I checked a CBC today as I like to review and examine all swing bed patients on Wednesdays. Her WBC count is elevated. (2) Leukocytosis Good question she has had a leukocytosis on and off. It has been about a week since her white blood cell count was normal. Markedly elevated and this is an acute change. She is asymptomatic.Chest x-ray is suspicious for right upper lobe infiltrate. Urinalysis is pending. I have also asked that blood cultures to be drawn from the PICC line. I will repeat the CBC in the a.m. (3) RUL Pneumonia In addition to the daptomycin, I have started Rocephin x 5 days and Zithromax x 3 days. (4) Acute kidney injury (LEROY) with acute tubular necrosis (ATN) Conclusion/Plan: The patient had an acute kidney injury with ATN during this previous hospitalization. Her kidney function is slowly improving. Will continue daily chemistry panels as her daptomycin dosing is based on her creatinine clearance. Her creatinine is 1.2 today. Her potassium is mildly low. 3.4. I will start her on 20 mill equivalents of p.o. potassium a day. (5) Pilonidal abscess Conclusion/Plan: Still with some drainage. Continue local wound care with wet-to-dry dressing changes. The wound should be cleaned with normal saline daily. I examined the wound today. There is does not appear to be any recurrence of infection there. (6) Osteoporosis Conclusion/Plan: The patient takes Fosamax at home. Her Fosamax has been continued. (7) Osteoarthritis Conclusion/Plan: The patient has had no complaints of pain recently. She previously was on meloxicam which has been held due to her acute kidney injury. 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 She has Tylenol available if needed. This was incidentally noted on imaging studies during her previous hospitalization (9) Anemia Conclusion/Plan: This is drifted down since the beginning of her previous hospitalization. However this is likely due to multiple blood draws and hemodilution. She will be on no further IV fluids. Hemoglobin is 8.9 today. Disposition: She remains in swing bed status through the end of her IV antibiotics which is scheduled for 06/06.. She will receive physical therapy and Occupational Therapy services. Wound care and ongoing IV antibiotics.I will repeat the CBC in the morning to follow-up on her leukocytosis.
[2024-05-30] MEDS ORDERED: SODIUM CHLORIDE 0.9% 50 ML IV ONE (18:36)
[2024-05-30] MEDS: SODIUM CHLORIDE FLUSH 0.9% 10 ML SYRINGE IVP PRN (18:41)
[2024-05-30] MEDS: MAGNESIUM SULFATE 1 GM in SODIUM CHLORIDE 0.9% 50 ML IV ONE (18:41)
[2024-05-31 06:00] LABS: BASOPHILS % (AUTO) 1.2 %; EOSINOPHILS % (AUTO) 3.5 %; HCT - HEMATOCRIT 26.9 % (37.0-47.0); HGB - HEMOGLOBIN 8.8 g/dL (12.0-16.0); LYMPHOCYTES % (AUTO) 7.8 %; MEAN CORPUSCULAR HEMOGLOBIN 32.7 pg (27.0-31.0); MEAN CORPUSCULAR HGB CONC 32.7 g/dL (32.0-36.0); MEAN PLATELET VOLUME 9.7 fL (7.9-10.8); MONOCYTES % (AUTO) 9.9 %; NEUTROPHILS % (AUTO) 76.1 %; PLT - PLATELET COUNT 498 10^3/uL (130-450); RED BLOOD COUNT 2.69 10^6/uL (4.20-5.40); RED CELL DISTRIBUTION WIDTH 13.5 % (12.0-15.0); WHITE BLOOD COUNT 17.3 x10^3/uL (4.8-10.8)
[2024-05-31 06:07] LABS: ABNORMAL LYMPHS % (MANUAL) 0 %; BAND NEUTROPHILS % (MANUAL) 0 %
[2024-05-31 06:14] LABS: ALBUMIN 3.3 g/dL (3.2-5.5); CALCIUM 9.7 mg/dL (8.5-10.3); CREATININE 1.2 mg/dL (0.6-1.3); MAGNESIUM 1.9 mg/dL (1.7-2.3); PHOSPHORUS 3.9 mg/dL (2.5-5.0); POTASSIUM 3.8 mmol/L (3.5-4.5)
[2024-05-31 06:42] LABS: BASOPHILS # (MANUAL) 0.3 10^3/uL (0-0.1); BASOPHILS % (MANUAL) 2 %; DIFFERENTIAL COMMENT MANUAL DIFFERENTIAL; EOSINOPHILS # (MANUAL) 0.3 10^3/uL (0-0.7); LYMPHOCYTES # (MANUAL) 1.4 10^3/uL (1.5-3.5); LYMPHOCYTES % (MANUAL) 8 %; METAMYELOCYTES % (MANUAL) 1 %; MONOCYTES # (MANUAL) 0.7 10^3/uL (0.0-1.0); MYELOCYTES % (MANUAL) 1 %; NEUTROPHILS # (MANUAL) 14.2 10^3/uL (1.5-6.6); PLATELET ESTIMATE, MANUAL INCREASED (>450,000) (NORMAL); RBC MORPHOLOGY (MULTIPLE) NORMAL APPEARANCE (NORMAL)
[2024-05-31] MEDS: cefTRIAXone 1 GM in SODIUM CHLORIDE 0.9% MINIBAG 100 ML IV SCH (08:28)
[2024-05-31] MEDS: AZITHROMYCIN INJ 500 MG in SODIUM CHLORIDE 0.9% 250 ML IV SCH (09:30)
[2024-05-31 18:31] LABS: BILIRUBIN,URINE NEGATIVE (NEGATIVE); GLUCOSE, URINE (UA) NEGATIVE (NEGATIVE); KETONES,URINE (UA) NEGATIVE (NEGATIVE); LEUKOCYTE ESTERASE, URINE NEGATIVE (NEGATIVE); NITRITE,URINE NEGATIVE (NEGATIVE); OCCULT BLOOD,URINE NEGATIVE (NEGATIVE); PROTEIN,URINE NEGATIVE (NEGATIVE); UROBILINOGEN,URINE 0.2 (NORMAL) E.U./dL (NORMAL)
[2024-05-31 18:35] LABS: CLARITY,URINE CLEAR (CLEAR)
[2024-05-31 18:49] LABS: BACTERIA,URINE Rare /HPF (None Seen); RBC,URINE 0-5 /HPF (0-5); SQUAMOUS EPITHELIAL CELL,UR FEW Squamous (<= Few); WBC,URINE 0-3 /HPF (0-5)
[2024-06-01 06:01] LABS: ALBUMIN 3.2 g/dL (3.2-5.5); CALCIUM 9.1 mg/dL (8.5-10.3); CREATININE 1.1 mg/dL (0.6-1.3); MAGNESIUM 1.8 mg/dL (1.7-2.3); PHOSPHORUS 3.4 mg/dL (2.5-5.0); POTASSIUM 3.9 mmol/L (3.5-4.5)
[2024-06-01] MEDS: GABAPENTIN 300 MG CAPSULE PO SCH (21:19)
[2024-06-02 05:27] LABS: ALBUMIN 3.6 g/dL (3.2-5.5); CALCIUM 9.7 mg/dL (8.5-10.3); CREATININE 1.1 mg/dL (0.6-1.3); MAGNESIUM 1.9 mg/dL (1.7-2.3); PHOSPHORUS 3.9 mg/dL (2.5-5.0); POTASSIUM 3.7 mmol/L (3.5-4.5)
[2024-06-02] MEDS: MELOXICAM 7.5 MG TABLET PO SCH (08:08)
[2024-06-03 05:09] LABS: BASOPHILS # (AUTO) 0.2 10^3/uL (0.0-0.1); BASOPHILS % (AUTO) 1.4 %; EOSINOPHILS # (AUTO) 0.3 10^3/uL (0.0-0.7); EOSINOPHILS % (AUTO) 2.7 %; HCT - HEMATOCRIT 25.5 % (37.0-47.0); HGB - HEMOGLOBIN 8.3 g/dL (12.0-16.0); LYMPHOCYTES # (AUTO) 1.1 10^3/uL (1.5-3.5); LYMPHOCYTES % (AUTO) 10.1 %; MEAN CORPUSCULAR HEMOGLOBIN 32.8 pg (27.0-31.0); MEAN CORPUSCULAR HGB CONC 32.5 g/dL (32.0-36.0); MEAN CORPUSCULAR VOLUME 100.8 fL (81.0-99.0); MEAN PLATELET VOLUME 10.4 fL (7.9-10.8); MONOCYTES % (AUTO) 8.8 %; NEUTROPHILS # (AUTO) 8.7 10^3/uL (1.5-6.6); NEUTROPHILS % (AUTO) 76.6 %; PLT - PLATELET COUNT 578 10^3/uL (130-450); RED BLOOD COUNT 2.53 10^6/uL (4.20-5.40); RED CELL DISTRIBUTION WIDTH 13.2 % (12.0-15.0); WHITE BLOOD COUNT 11.3 x10^3/uL (4.8-10.8)
[2024-06-03 05:19] LABS: ALBUMIN 3.2 g/dL (3.2-5.5); ALKALINE PHOSPHATASE 143 IU/L (42-121); ALT ALANINE AMINOTRANSFERASE 19 IU/L (10-60); AST ASPARTATE AMINOTRANSFERASE 22 IU/L (10-42); BILIRUBIN,DIRECT < 0.10 mg/dL (0.03-0.18); BILIRUBIN,TOTAL 0.6 mg/dL (0.2-1.0); BUN - BLOOD UREA NITROGEN 17 mg/dL (6-20); CALCIUM 9.1 mg/dL (8.5-10.3); CARBON DIOXIDE - CO2 29 mmol/L (21-32); CHLORIDE 104 mmol/L (101-111); CK- CREATINE KINASE 65 IU/L (30-223); GFR - MDRD 54 (>89); GLUCOSE 95 mg/dL (74-104); MAGNESIUM 1.8 mg/dL (1.7-2.3); PHOSPHORUS 3.4 mg/dL (2.5-5.0); POTASSIUM 3.7 mmol/L (3.5-4.5); SODIUM 138 mmol/L (135-145); TOTAL PROTEIN 6.4 g/dL (6.4-8.9)
[2024-06-03] MEDS ORDERED: SODIUM CHLORIDE 0.9% 100ML 100 ML IV ONE (14:20)
[2024-06-04 06:06] LABS: ALBUMIN 3.2 g/dL (3.2-5.5); CALCIUM 8.9 mg/dL (8.5-10.3); MAGNESIUM 1.8 mg/dL (1.7-2.3); PHOSPHORUS 2.8 mg/dL (2.5-5.0); POTASSIUM 3.8 mmol/L (3.5-4.5)
[2024-06-05 06:09] LABS: ALBUMIN 3.3 g/dL (3.2-5.5); CALCIUM 9.2 mg/dL (8.5-10.3); MAGNESIUM 1.8 mg/dL (1.7-2.3); POTASSIUM 3.9 mmol/L (3.5-4.5)
[2024-06-06 05:35] LABS: BASOPHILS # (AUTO) 0.2 10^3/uL (0.0-0.1); BASOPHILS % (AUTO) 1.6 %; EOSINOPHILS # (AUTO) 0.5 10^3/uL (0.0-0.7); EOSINOPHILS % (AUTO) 4.4 %; HCT - HEMATOCRIT 25.7 % (37.0-47.0); LYMPHOCYTES # (AUTO) 1.1 10^3/uL (1.5-3.5); LYMPHOCYTES % (AUTO) 10.3 %; MEAN CORPUSCULAR HEMOGLOBIN 31.7 pg (27.0-31.0); MEAN CORPUSCULAR HGB CONC 31.1 g/dL (32.0-36.0); MEAN PLATELET VOLUME 9.9 fL (7.9-10.8); MONOCYTES % (AUTO) 9.5 %; NEUTROPHILS # (AUTO) 8.1 10^3/uL (1.5-6.6); NEUTROPHILS % (AUTO) 73.7 %; PLT - PLATELET COUNT 568 10^3/uL (130-450); RED BLOOD COUNT 2.52 10^6/uL (4.20-5.40); RED CELL DISTRIBUTION WIDTH 13.4 % (12.0-15.0)
[2024-06-06 05:54] LABS: ALBUMIN 3.2 g/dL (3.2-5.5); CALCIUM 9.4 mg/dL (8.5-10.3); MAGNESIUM 1.8 mg/dL (1.7-2.3); PHOSPHORUS 3.8 mg/dL (2.5-5.0)
[2024-06-06 07:45] VITALS: BP 140/67; O2SAT 95
--- NOTE | 2024-06-06 12:16 | DISCHARGE SUMMARY ---
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 Finished June 06, 2024. PICC line removed at the completion of treatment. (2) Leukocytosis resolving. as high as 26.2, and thought to be secondary to a RUL pneumonia. She was asymptomatic. repeat blood cultures from PICC were negative. (3) RUL Pneumonia In addition to the daptomycin, I have started Rocephin x 5 days and Zithromax x 3 days. This was her second case of right sided PNA in recent history. was admitted 05/18 for one night for right sided PNA. no indication that she is aspirating. Chest CT on 05/18/24 does not show suspicious nodules, or indicated need for followup studies. (4) Acute kidney injury (LEROY) with acute tubular necrosis (ATN) Conclusion/Plan: The patient had an acute kidney injury with ATN during this previous hospitalization. renal function has recovered to baseline Cr= 1.0. GFR 54 (5) Pilonidal abscess Conclusion/Plan: The wound should be cleaned with normal saline then duoderm should be applied. it is healing well. There is does not appear to be any recurrence of infection there. (6) Osteoporosis Conclusion/Plan: The patient takes Fosamax at home. continue on dc. (7) Osteoarthritis Conclusion/Plan: The patient has had no complaints of pain recently. She previously was on meloxicam which was held due to her acute kidney injury. 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 Tylenol or meloxicam as needed This was incidentally noted on imaging studies during her previous hospitalization (9) Anemia Conclusion/Plan: This is drifted down since the beginning of her previous hospitalization. However this is likely due to multiple blood draws and hemodilution. She will be on no further IV fluids. Hemoglobin is 8.0 at time of discharge. - HPI History of Present Illness: The patient is a 79-year-old female who was admitted to the hospital initially for a pilonidal cyst with surrounding cellulitis. She had developed an abscess. At the time of admission she was septic with positive blood cultures for MRSA. During her previous hospitalization infectious disease was consulted and recommended 2 weeks of IV daptomycin from the date of her negative blood cultures. She is being admitted to swing bed status for physical therapy, Occupational Therapy, IV antibiotics and wound care. - CONSULTS | PROCEDURES Consultations: none Procedures: PICC line placement for IV abx. CXR 05/30: Concerning for right upper lobe infiltrates no pleural effusion or pneumothorax - HOSPITAL COURSE Hospital Course: Admitted to swing bed status for treatment of MRSA bacteremia secondary to infected pilonidal cyst with abscess. During her swing bed course she did well received physical therapy occupational therapy IV antibiotics and wound care. About a week into her course she did develop a leukocytosis of unclear origin. Chest x-ray showed right upper lobe infiltrate. She had previously had a right upper lobe pneumonia in late April of this year for which she was hospitalized for about a day. At that time she had had a chest CT showing no suspicious lesions or lymphadenopathy. She was treated for pneumonia with Rocephin and Zithromax. Her leukocytosis almost resolved with a white count upon discharge of 11. She was discharged home in the care of her daughter. She will be staying temporarily in [place] until she moves to her new home in [place]. She has home health set up for RN and PT needs. She will resume her outpatient home medication regimen. - ALLERGIES Allergies/Adverse Reactions: Allergies Allergy/AdvReac Type Severity Reaction Status Date / Time No Known Drug Allergies Allergy Verified 05/18/24 09:34 - MEDICATIONS Home Medications: Ambulatory Orders Medication Instructions Recorded Confirmed [place]-3/Dha/Epa/Fish Oil [Fish Oil 1 each PO DAILY 12/27/13 05/26/24 1,000 mg Softgel] cycloSPORINE [Restasis] 1 drops EACHEYE BID 03/11/20 05/26/24 Aspirin EC [Ecotrin] 81 mg PO DAILY #30 tablet 01/04/22 05/26/24 Alendronate [Fosamax] 70 mg PO MO 04/26/24 05/26/24 Calcitonin [Fortical] 1 spray NS DAILY 04/26/24 05/26/24 Calcium Carb (Oyster Shell) 500 mg PO BID tab 04/26/24 05/26/24 [[place]-500] Gabapentin [Neurontin] 600 mg PO TID 04/26/24 06/01/24 Acetaminophen [Tylenol] 650 mg PO Q4HR PRN tab 05/25/24 05/26/24 Famotidine [Pepcid] 20 mg PO QPM tab 05/25/24 05/26/24 Loperamide [Imodium] 2 mg PO QID PRN cap 05/25/24 05/26/24 Mag Hydrox/Al Hydrox/Simeth 30 ml PO Q4HR PRN ea 05/25/24 05/26/24 [Mylanta Plus] Multivitamin W/Minerals [Theragran 1 tab PO DAILYWM tab 05/25/24 05/26/24 M] Saccharomyces Boulardii [Florastor] 250 mg PO BIDWM cap 05/25/24 05/26/24 polyethylene glycoL 3350 [Miralax] 17 gm PO DAILY packet 05/25/24 05/26/24 Acetaminophen [Tylenol] 650 mg PO Q4HR PRN tab 06/06/24 Magnesium Oxide [Mag Ox] 400 mg PO DAILYWM tab 06/06/24 Meloxicam [Mobic] 15 mg PO DAILY tab 06/06/24 - PHYSICAL EXAM AT DISCHARGE General Appearance: positive: No acute distress Eyes Bilateral: positive: Normal inspection ENT: positive: ENT inspection nml Neck: positive: Nml inspection Respiratory: positive: No respiratory distress, Breath sounds nml Cardiovascular: positive: Regular rate & rhythm Abdomen: positive: Non-tender Skin: positive: Color nml, Other (wound at sacrum related to pilonidial abscess is healing with scant bleeding and some fibrinous slough. no fluctuance or erythema) Extremities: positive: Non-tender Neurologic/Psychiatric: positive: Oriented x3 - LABS Result Diagrams: 06/06/24 05:22 06/06/24 05:22 - SEPSIS Current Stage of Sepsis: Resolved Sepsis Criteria: WBC count greater than 12,000 or less than 4000 - QUALITY (Female Hip Fx Only) Was patient sent home on osteoporosis medication?: Yes (ongoing home meds) - FOLLOW UP Follow Up: Blank López, but patient moving away from [place]. - TIME SPENT Time Spent in Discharge (Minutes): 45"
--- NOTE | 2024-06-06 12:52 | Discharge Plan ---
Discharge Plan Problem Reviewed?: Yes Disposition: Home, Self Care Condition: Good Diet: Regular Activity Restrictions: No Restrictions Shower Restrictions: No Driving Restrictions: No Weight Bearing: Full Weight Instruction Topics: MRSA Infec Health Concerns: You were admitted to the hospital because you got septic and had MRSA in your blood. This was due to the abscess that was on your backside. The abscess was incised and drained and you were treated with appropriate antibiotic therapy. Because you had bacteria in your blood you had to be treated for 2 weeks. You have done well and have improved greatly. While you are here in the hospital you also developed a pneumonia on the right side. This was the same side of your chest that you had a pneumonia in April. I carefully reviewed the CT of your chest that was done in April and I do not see any reason for you to need follow-up studies. When you go to see your new primary care provider please take with them copies of information from your hospitalization. Please watch the loose stools that you have been having. I expect that they will go away as you resume her regular diet and her off antibiotics. Make sure to eat things that are good for gut health. If the diarrhea does not get better I want you to seek care. My concern would be that you have an overgrowth of the bad bacteria in your gut this can happen with prolonged antibiotics. Also if you feel fatigued or poorly it is important that you see someone and get blood work and get checked out. This summer you have had 2 serious illnesses that came on quite suddenly and I do not want you to have another episode of severe illness. Please establish primary care close to your new home soon as possible. Follow-Up Care: Home Health - RN, Home Health - PT No Smoking: If you smoke, Please STOP! Call for help.
== END 2024-06-06 14:55 | disposition home or self-care (01) | DRG 602 ==
LOC: MS2 05-25 11:16
PROVIDERS: ADMIT Physician Assistant; ATTEND Physician Assistant Medical
DX: L05.01 Pilonidal cyst with abscess (principal); J18.9 Pneumonia, unspecified organism; N17.0 Acute kidney failure with tubular necrosis; B95.62 Methicillin resistant Staphylococcus aureus infection as the cause of diseases classified elsewhere; M19.90 Unspecified osteoarthritis, unspecified site; D64.9 Anemia, unspecified; R53.1 Weakness; Z87.891 Personal history of nicotine dependence; D72.829 Elevated white blood cell count, unspecified; M80.88XD Other osteoporosis with current pathological fracture, vertebra(e), subsequent encounter for fracture with routine healing
CPT/HCPCS: 36415; 80048; 80069; 80076; 81001; 82550; 82607; 83735; 85025; 87040; 87086